=== PATIENT | female | born 1990 | race Caucasian/White ===

== ENCOUNTER 2023-05-27 08:42 | Emergency (ER) | payer OTHER, BC, SELFPAY ==
[2023-05-27 08:50] VITALS: BP 103/68; PULSE 96; RESP 16; TEMP 36.7; O2SAT 96; BMI 37.1
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
== END 2023-05-27 09:11 | disposition home or self-care (01) ==
PROVIDERS: Emergency Provider Emergency Medicine; PCP Family Medicine
DX: Z04.1 Encounter for examination and observation following transport accident (principal); R51.9 Headache, unspecified
CPT/HCPCS: 99281

== ENCOUNTER 2023-11-23 06:59 | Outpatient (OUT) | payer BC, SELFPAY ==
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
== END 2023-11-23 07:00 | disposition home or self-care (01) ==
LOC: CARD 06:59
PROVIDERS: PCP Family Medicine; Visit Provider Nurse Practitioner Family
DX: R07.9 Chest pain, unspecified (principal); R94.31 Abnormal electrocardiogram [ECG] [EKG]
CPT/HCPCS: 93017

== ENCOUNTER 2024-01-25 19:41 | Outpatient (REF) | payer BC, SELFPAY ==
--- OUTSIDE RECORDS SUMMARY | 2024-01-25 19:46 | XMS_ITS | CCD ---
Author Name Unknown Address [address] [place] [address] Organization [facility] Care Team Providers Care Edger Machine Helper Name Role Phone CASI RUGGIERO Primary Care Physician Paras Degroot Unavailable Odette Brenner Unavailable Roberto Rao Unavailable Mouna Kessler Unavailable DR RENE RIZVI Admitting Unavailable DR RENE RIZVI Attending Unavailable DR CASI RUGGIERO Primary Care Unavailable DR RENE RIZVI Consulting Unavailable Agus OLSON Attending Unavailable CASI LOPEZ Attending Unavailable CASI LOPEZ Attending Unavailable Tam Grewal Attending Unavailab Tam Schreiber Admitting Unavailab Casi Martin Primary Care Un available Casi Ruggiero MD Primary Care Provider MAT FOY Attending Unavailab le Allergies Allergy Classification Reported Allergen(s) Allergy Type Date of Onset Reaction(s) Facility (3 sources) ARIPiprazole lauroxil; Translations: [aripiprazole] Drug Allergy Adverse reactions (finding) [facility] (20 sources) PARoxetine; Translations: [paroxetine] Drug Allergy 3 Suicidal thoughts (finding) [employer] Other (20 sources) ARIPiprazole Drug Allergy 3 akathisia [employer] Other (20 sources) risperiDONE Drug Allergy akathisia [employer] Other (1 source) ARIPiprazole Drug Allergy 2 [facility] (1 source) PARoxetine Drug Allergy 2 [facility] (1 source) risperiDONE Drug Allergy 2 [facility] Medications Current Medications Medication Drug Class(es) Dates Sig (Normalized) Sig (Original) [id number] 200 actuat albuterol 0.09 mg/actuat metered dose inhaler (20 sources) beta2-Adrenergic Agonist take 1 puff(s) by inhalation every four hours as needed Albuterol Sulfate HFA 108 (90 Base) MCG/ACT 1 puff as needed Inhalation every 4 hrs 90 MCG Active take 1 puff(s) by in halation every four hours as needed Albuterol Sulfate HFA 108 (90 Base) MCG/ACT 1 puff as needed Inhalation every 4 hrs 90 MCG Active atorvastatin 10 mg oral tablet (1 source) HMG-CoA Reductase Inhibitor Start: 06-28-2023 End: 06-27-2024 take 1 tablet by mouth in the morning atorvastatin (Lipitor) 10 MG tablet Indications: Mixed hyperlipidemia (CMS/HCC) Take 1 tablet (10 mg) by mouth in the morning. 30 tablet 11 06/28/2023 06/27/2024 Active benztropine mesylate 1 mg oral tablet (2 sources) Anticholinergic, Antihistamine Start: 03-15-2023 benztropine 1 mg Tab Refills(s) 0 Start Date: 03/16/23 Status: Ordered Vraylar (10 sources) Atypical Antipsychotic Start: 05-12-2022 Vraylar Oral, Daily Start Date: 05/12/22 Status: Ordered Start: 04-07-2022 take [address] [facility] every twenty-four hours Vraylar 1.5 MG 1 capsule Orally Once a day for 90 days March, Active take 1 capsule by mo ut in the morning Vraylar 3 MG capsule Take 1 capsule by mouth in the morning. 0 Active cetirizine hydrochloride 10 mg oral tablet (1 source) Histamine-1 Receptor Antagonist take 1 tablet by mouth once daily as needed cetirizine (ZyrTEC ALLERGY) 10 MG tablet 1 tablet Orally Once a day. PRN 0 Active 1 ml erenumab-aooe 140 mg/ml auto-injector (20 sources) Start: 022 inject 1 mg by subcutaneous injection every month Aimovig SureClick Autoinjector-aooe 140 mg/mL subcutaneous solution mg, SubCutaneous, qMonth, Refills(s) 0 Start Date: 01/13/22 Status: Ordered Aimovig 70 MG/ML as directed Subcutaneous Not-Taking ethinyl estradiol 0.02 mg / ferrous fumarate 75 mg / norethindrone 1 mg oral tablet (20 sources) Estrogen take 1 tablet by sukhdev th every twenty-four hours 12/10 1-20 MG-MCG 1 tablet Orally Once a day Active take 1 tablet by mouth every twe nty-four hours fenofibrate 48 mg oral tablet (1 source) Peroxisome Proliferator Receptor alpha Agonist Start: 06-28-2023 End: 06-27-2024 take 1 tablet by mouth in the morning fenofibrate (Tricor) 48 MG tablet Indications: Mixed hyperlipidemia (CMS/HCC) Take 1 tablet (48 mg) by mouth in the morning. 30 tablet 11 06/28/2023 06/27/2024 Active Fiber (1 source) Fiber - as direc ele Orally Active fluticasone propionate 0.05 mg/actuat metered dose nasal spray (1 source) Corticosteroid take 1 spray(s) nasal route once daily as needed fluticasone (Flonase) 50 MCG/ACT nasal spray 1 spray in each nostril Nasally Once a day. PRN for 30 days 0 Active gabapentin 100 mg oral capsule (20 sources) Anti-epileptic Agent Start: 01-13-2022 take 1 mg by mouth three times daily gabapentin 100 mg Cap mg cap(s), Oral, TID, Refills(s) 0 Start Date: 01/13/22 Status: Ordered take 1 capsule by mo uth every twenty-four hours Gabapentin 100 MG 1 capsule Orally Once a day for 30 days f41.1 Active hydrOXYzine hydrochloride 50 mg oral tablet (20 sources) Antihistamine Start: 05-19-2022 hydrOXYzine HC l (Atarax) 50 MG tablet 50 mg. 0 05/19/2022 Active Start: 02-24-2022 hydrOXYzine pa moate (Vistaril) 50 MG capsule 1 capsule as needed Orally at bedtime 0 02/24/2022 Active take 1 tablet by sukhdev th every eight hours hydrOXYzine HCl 25 MG 1 tablet as needed Orally every 8 hrs for 30 days Active ketoconazole 20 mg/ml medicated shampoo (1 source) Azole Antifungal Start: 05-16-2023 ketoconazole (NIZOral) 2 % shampoo Indications: Other seborrheic dermatitis Apply topically Daily as needed for dandruff. Lather on scalp 2-3 times weekly, leave on 5-10 min before rinsing 118 mL 11 05/16/2023 Active lamoTRIgine 25 mg oral tablet (3 sources) Mood Stabilizer, Anti-epileptic Agent take 2 tablets by mouth every twenty-four hours lamoTRIgine 25 MG 2 tablet Orally Once a day for 30 days Active take 1 tablet by sukhdev th every twenty-four hours lamoTRIgine 25 MG 1 tablet Orally Once a day for 30 days Active Kwame FE 12/10 (1 source) Start: 01-13-2022 Kwame FE 12/10 Oral, Daily, Refill(s) 0 Start Date: 01/13/22 Status: Ordered levothyroxine sodium 0.025 mg oral tablet (1 source) l-Thyroxine Start: 04-14-2023 End: 04-13-2024 take 1 tablet by mouth before mealtime levothyroxine (Synthroid) 25 MCG tablet Indications: Hypothyroidism, unspecified type (CMS/HCC) Take 1 tablet (25 mcg) by mouth in the morning. Take before meals. 30 tablet 04/14/2023 04/13/2024 Active metFORMIN hydrochloride 500 mg oral tablet (20 sources) Biguanide Start: 10-10-2023 End: 01-08-2024 take 1 tablet by mouth in the morning, then take 1 tablet by mouth in the evening, then take 1 tablet by mouth at bedtime metFORMIN (Glucophage) 500 MG tablet Indications: PCOS (polycystic ovarian syndrome) Take 1 tablet (500 mg) by mouth in the morning and 1 tablet (500 mg) in the evening and 1 tablet (500 mg) before bedtime. 90 tablet 2 10/10/2023 01/08/2024 Active Start: 01-13-2022 take 1 mg by mouth once daily metformin 500 mg ER Tab mg tab(s), Oral, Daily, Refills(s) 0 Start Date: 01/13/22 Status: Ordered take 1 tablet by sukhdev every twelve hours metFORMIN HCl 500 MG 1 tablet with a meal Orally twice a day Active take 1 tablet by sukhdev th every twelve hours OLANZapine 5 mg oral tablet (6 sources) Atypical Antipsychotic Start: 12-17-2021 take 1 mg by mouth once daily olanzapine 5 mg oral tablet mg tab(s), Oral, Daily, Refills(s) 0 Start Date: 01/13/22 Status: Ordered ondansetron 4 mg oral tablet (1 source) Serotonin-3 Receptor Antagonist Start: 03-16-2023 ondansetron 4 mg Tab Refills(s) 0 Start Date: 03/16/23 Status: Ordered prazosin 1 mg oral capsule (20 sources) alpha-Adrenergic Emelia Start: 01-13-2022 take 1 capsule by mouth at bedtime prazosin (Minipress) 1 MG capsule TAKE 1 CAPSULE BY MOUTH AT BEDTIME WITH 2 MG CAPSULE 0 08/29/2022 Active Start: 01-13-2022 prazosin (Mini press) 2 MG capsule 1 capsule. 0 01/20/2022 Active Start: 03-04-2021 [facility] Prazosin HCl 1 MG 1 capsule at bedtime Orally Once a day for 90 days with 2 mg Nov, Active Start: 03-04-2021 take 1 capsule by [facility] every twenty-four hours take 1 capsule by [facility] twenty-four hours Prazosin HCl 2 MG 1 capsule at bedtime Orally Once a day for 90 days Active take 1 capsule by [facility] every twenty-four hours 24 hr propranolol hydrochloride 120 mg extended release oral capsule (20 sources) beta-Adrenergic Emelia Start: 01-03-2024 take 1 capsule by mouth every twenty-four hours at bedtime propranolol XL (Innopran XL) 120 MG 24 hr capsule Indications: Migraine without aura and without status migrainosus, not intractable (CMS/HCC) Take 1 capsule (120 mg) by mouth at bedtime 90 capsule 1 01/03/2024 Active Start: 08-16-2023 End: 01-03-2024 take 1 capsule by mouth every twenty-four hours at bedtime propranolol XL (Innopran XL) 120 MG 24 hr capsule Indications: Migraine without aura and without status migrainosus, not intractable (CMS/HCC) Take 1 capsule (120 mg) by mouth at bedtime. 30 capsule 2 08/16/2023 01/03/2024 Discontinued (Reorder) Start: 01-13-2022 take 1 mg by mouth once daily propranolol 60 mg Cap-ER mg cap(s), Oral, Daily, Refills(s) 0 Start Date: 01/13/22 Status: Ordered take [address] [facility] once daily Propranolol HCl ER 60 MG 1 capsule Orally Once a day Active Semaglutide, 2 MG/DOSE, (Ozempic, 2 MG/DOSE,) 8 MG/3ML solution pen-injector (1 source) Start: 10-03-2023 inject 2 mg by subcutaneous injection every week Semaglutide, 2 MG/DOSE, (Ozempic, 2 MG/DOSE,) 8 MG/3ML solution pen-injector Indications: Morbid (severe) obesity due to excess calories (CMS/HCC) Inject 2 mg under the skin 1 (one) time per week. 9 mL 0 10/03/2023 Active tamsulosin hydrochloride 0.4 mg oral capsule (1 source) alpha-Adrenergic Emelia Start: 03-16-2023 End: 03-30-2023 take 1 capsule by mouth once daily Flomax 0.4 mg Cap 0.4 mg = 1 cap(s), Oral, Daily, X 14 day(s), # 14 cap(s), Refills(s) 0, Pharmacy: [id number], 158, cm, 03/16/23 13:48:00 EDT, Height/Length Dosing, 91, kg, 03/16/23 13:48:00 EDT, Weight Dosing Start Date: 03/16/23 Stop Date: 03/30/23 Status: Ordered 24 hr venlafaxine 150 mg extended release oral capsule (20 sources) Serotonin and Norepinephrine Reuptake Inhibitor Start: 01-20-2022 venlafaxine XR (Effexor XR) 150 MG 24 hr capsule 1 capsule. 0 01/20/2022 Active Start: 01-13-2022 take 1 mg by mouth once daily Effexor XR 150 mg Cap-ER mg cap(s), Oral, Daily, Refills(s) 0 Start Date: 01/13/22 Status: Ordered Start: 07-25-2021 take 1 capsule [facility] once daily at mealtime venlafaxine XR (Effexor XR) 75 MG 24 hr capsule 1 capsule with food Orally Once a day. Take with 150mg 0 01/20/2022 Active Start: 07-25-2021 take 1 mg by mouth once daily Effexor XR 37.5 mg Cap-ER mg cap(s), Oral, Daily, Refills(s) 0 Start Date: 01/13/22 Status: Ordered Vitamin D 1000 UNIT (20 sources) take 1 tablet by sukhdev th once daily Vitamin D 1000 UNIT 1 tablet Orally Once a day Active take 1 tablet by mouth once martha y Vitamin D 1000 UNIT 1 tablet Orally Once a day Not-Taking Vitamin D3 (2 sources) Start: 01-13-2022 Vitamin D3 Ref ills(s) 0 Start Date: 01/13/22 Status: Ordered Completed/Discontinued Medications Medication Drug Class(es) Dates Sig (Normalized) Sig (Original) asenapine 10 mg sublingual tablet (20 sources) Atypical Antipsychotic Start: 11-12-2021 take 1 tablet under the tongue once daily Saphris 10 MG 1 tablet under the tongue and allow to dissolve. LILIYA Sublingual once a day for 30 day(s) LILIYA Nov, Not-Taking Start: 08-05-2021 take 1 tablet by sukhdev every twenty-four hours Saphris 5 MG 1 tablet under the tongue and allow to dissolve Sublingual once a day for 30 days Jul, Not-Taking cephalexin 250 mg oral tablet (12 sources) Cephalosporin Antibacterial take 2 capsules by mouth once daily Keflex 250 MG 2 capsules Orally qd Not-Taking montelukast 10 mg oral tablet (15 sources) Leukotriene Receptor Antagonist take 1 tablet by mouth every twenty-four hours Singulair 10 MG 1 tablet Orally Once a day Not-Taking Problems Active Problems Problem Classification Problem Date Documented Date Episodic/Chronic Abdominal pain (2 sources) Abdominal pain 01-13-2022 Episodic Anxiety disorders (3 sources) Anxiety; Translations: [Mixed anxiety and depressive disorder] Onset: 2023 01-11-2022 Chronic Asthma (2 sources) Asthma 01-11-2022 Chronic Calculus of urinary tract (4 sources) Kidney stone; Translations: [Calculus of kidney] Onset: 05-12-2022 Episodic Disorders of lipid metabolism (14 sources) Mixed hyperlipidemia; Translations: [Mixed hyperlipidemia] Onset: 02-24-2022 Resolved: 02-24-2022 Chronic Genitourinary symptoms and ill-defined conditions (4 sources) Stress incontinence (female) (male); Translations: [Genuine stress incontinence] Onset: 05-12-2022 Chronic Genitourinary symptoms and ill-defined conditions (4 sources) Nocturia; Translations: [Nocturia] Onset: 03-16-2023 01-13-2022 Episodic Headache; including migraine (18 sources) Migraine; Translations: [Migraine, unspecified, not intractable, without status migrainosus] Onset: 02-24-2022 Resolved: 02-24-2022 01-11-2022 Chronic Heart valve disorders (2 sources) Heart murmur 01-11-2022 Episodic Immunizations and screening for infectious disease (1 source) Encounter for screening for human papillomavirus (HPV); Translations: [ENC SCREENING HUMAN PAPILLOMAVIRUS] Onset: 11-17-2022 Episodic Menstrual disorders (1 source) Irregular periods; Translations: [Irregular menstruation, unspecified] Onset: 2023 2023 Chronic Miscellaneous mental health disorders (13 sources) Eating disorder; Translations: [Eating disorder, unspecified] Onset: 02-24-2022 Resolved: 02-24-2022 Chronic Mood disorders (20 sources) Depressive disorder; Translations: [Bipolar II disorder, most recent episode major depressive] Onset: 04-02-2021 Resolved: 06-07-2022 01-11-2022 Chronic Nutritional deficiencies (1 source) Vitamin D deficiency; Translations: [Vitamin D deficiency, unspecified] Onset: 2023 2023 Chronic Other endocrine disorders (12 sources) Polycystic ovaries; Translations: [Polycystic ovarian syndrome] Chronic Other endocrine disorders (1 source) Polycystic ovarian syndrome Onset: 02-24-2022 Resolved: 02-24-2022 Chronic Other endocrine disorders (1 source) Polycystic ovary syndrome; Translations: [Polycystic ovarian syndrome] Onset: 2023 2023 Chronic Other nutritional; endocrine; and metabolic disorders (4 sources) Body mass index 40+ - severely obese; Translations: [Body mass index (BMI) 40.0-44.9, adult] Onset: 01-13-2022 Chronic Other nutritional; endocrine; and metabolic disorders (13 sources) Metabolic syndrome X; Translations: [Metabolic syndrome] Onset: 2023 2023 Chronic Other nutritional; endocrine; and metabolic disorders (1 source) Metabolic syndrome Onset: 02-24-2022 Resolved: 02-24-2022 Chronic Other nutritional; endocrine; and metabolic disorders (1 source) Obesity caused by energy imbalance; Translations: [Morbid (severe) obesity due to excess calories] Onset: 2023 2023 Chronic Other screening for suspected conditions (not mental disorders or infectious disease) (4 sources) Encounter for screening for malignant neoplasm of cervix; Translations: [ENC SCREENING MALIG NEOPLASM CERV] Onset: 11-10-2022 Episodic Substance-related disorders (1 source) Abuse of laxatives; 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] Onset: 2023 2023 Chronic Unclassified (2 sources) Asymptomatic microscopic hematuria 01-13-2022 Urinary tract infections (4 sources) Urinary tract infectious disease; Translations: [Urinary tract infection, site not specified] Onset: 05-12-2022 Episodic Past or Other Problems Problem Classification Problem Date Documented Da te Episodic/Chronic Cardiac dysrhythmias (1 source) Palpitations Onset: 02-24-2022 Resolved: 02-24-2022 Episodic Diabetes mellitus without complication (14 sources) Prediabetes; Translations: [Other abnormal glucose] Onset: 02-24-2022 Resolved: 02-24-2022 Episodic Mood disorders (1 source) Mood disorders Onset: 06-28-2023 06-28-2023 Other gastrointestinal disorders (1 source) Constipation; Translations: [Constipation, unspecified] Onset: 10-22-2021 06-28-2023 Episodic Other nutritional; endocrine; and metabolic disorders (1 source) Abnormal weight gain Onset: 02-24-2022 Resolved: 02-24-2022 Episodic Residual codes; unclassified (1 source) Insomnia; Translations: [Insomnia, unspecified] Onset: 2023 2023 Episodic Results Test Name Value Interpretation Reference Range Facility Lab Reportson 07-15-2023 Lab Reports [id number] #[id number]:127 Normal [facility] RAD - CT Reporton 07-15-2023 RAD - CT Report [id number] #[id number]:127 Normal [facility] Patient Educationon 03-16-20 Patient Education Urology Kidney Stones Kidney stones are rock-like masses that form inside of the kidneys. Kidneys are organs that make pee (urine). A kidney stone may move into other parts of the urinary tract, including: ? The tubes that connect the kidneys to the bladder (ureters). ? The bladder. ? The tube that carries urine out of the body (urethra). Kidney stones can cause very bad pain and can block the flow of pee. The stone usually leaves your body (passes) through your pee. You may need to have a doctor take out the stone. What are the causes? Kidney stones may be caused by: ? A condition in which certain glands make too much parathyroid hormone (primary hyperparathyroidism) . ? A buildup of a type of crystals in the bladder made of a chemical called uric acid. The body makes uric acid when you eat certain foods. ? Narrowing (stricture) of one or both of the ureters. ? A kidney blockage that you were born with. ? Past surgery on the kidney or the ureters, such as gastric bypass surgery. What increases the risk? You are more likely to develop this condition if: ? You have had a kidney stone in the past. ? You have a family history of kidney stones. ? You do not drink enough water. ? You eat a diet that is high in protein, salt (sodium), or sugar. ? You are overweight or very overweight (obese). What are the signs or symptoms? Symptoms of a kidney stone may include: ? Pain in the side of the belly, right below the ribs (flank pain). Pain usually spreads (radiates) to the groin. ? Needing to pee often or right away (urgently). ? Pain when going pee (urinating). ? Blood in your pee (hematuria). ? Feeling like you may vomit (nauseous). ? Vomiting. ? Fever and chills. How is this treated? Treatment depends on the size, location, and makeup of the kidney stones. The stones will often pass out of the body through peeing. You may need to: ? Drink more fluid to help pass the stone. In some cases, you may be given fluids through an IV tube put into one of your veins at the hospital. ? Take medicine for pain. ? Make changes in your diet to help keep kidney stones from coming back. Sometimes, medical procedures are needed to remove a kidney stone. This may involve: ? A procedure to break up kidney stones using a beam of light (laser) or shock waves. ? Surgery to remove the kidney stones. Follow these instructions at home: Medicines ? Take [id number] and prescription medicines only as told by your doctor. ? Ask your doctor if the medicine prescribed to you requires you to avoid driving or using heavy machinery. Eating and drinking ? Drink enough fluid to keep your pee pale yellow. You may be told to drink at least 8?10 glasses of water each day. This will help you pass the stone. ? If told by your doctor, change your diet. This may include: ? Limiting how much salt you eat. ? Eating more fruits and vegetables. ? Limiting how much meat, poultry, fish, and eggs you eat. ? Follow instructions from your doctor about eating or drinking restrictions. General instructions ? Collect pee samples as told by your doctor. You may need to collect a pee sample: ? 24 hours after a stone comes out. ? 8?12 weeks after a stone comes out, and every 6?12 months after that. ? Strain your pee every time you pee (urinate), for as long as told. Use the strainer that your doctor recommends. ? Do not throw out the stone. Keep it so that it can be tested by your doctor. ? Keep all follow-up visits as told by your doctor. This is important. You may need follow-up tests. How is this prevented? To prevent another kidney stone: ? Drink enough fluid to keep your pee pale yellow. This is the best way to prevent kidney stones. ? Eat healthy foods. ? Avoid certain foods as told by your doctor. You may be told to eat less protein. ? Stay at a healthy weight. Where to find more information ? National Kidney Foundation (NKF): www.kidney.org ? [employer] (UCF): www.urologyhealth.or g Contact a doctor if: ? You have pain that gets worse or does not get better with medicine. Get help right away if: ? You have a fever or chills. ? You get very bad pain. ? You get new pain in your belly (abdomen). ? You pass out (faint). ? You cannot pee. Summary ? Kidney stones are rock-like masses that form inside of the kidneys. ? Kidney stones can cause very bad pain and can block the flow of pee. ? The stones will often pass out of the body through peeing. ? Drink enough fluid to keep your pee pale yellow. This information is not intended to replace advice given to you by your health care provider. Make sure you discuss any questions you have with your health care provider. Document Revised: 07/12/2022 Document Reviewed: 07/12/2022 [employer] Patient Education ? 2022 [employer]. [place] [facility] Urology Office/Clinic Noteon 03-16-2023 Urology Office/Clinic Note Chief Complaint 1yr KUB HPI Staff PRW pt here for 1yr KUB (office RS'd) due to Kidney Stone. S/P Cysto 02/12/22. Then was seen in office by Dr Olson 05/12/22 for 3m to Cysto. Additional DX: Microscopic Hematuria, Stress Incontinence, Abdominal pain, Nocturia & Recurrent UTI. KUB done 12/22/22 UA today shows SMALL blood. Pt is on her menses. Did have UTI back in October. Tx'd by PCP. Denies visible blood in urine. Denies pain/burning. Denies flank pain. Still has occasional loss of bladder control, when she tries to hold it too long. Getting up once a night to void. Denies all other urinary complaints. History of Present Illness staff HPI reviewed and agree. Review of Systems PHQ Score Initial Depression Screen Score: 0 no fever, chills, malaise, myalgia. no rash/lesions. no chest pain, palpitations, or SOB. no abdominal pain, nausea, vomiting. no unilateral calf swelling, redness, pain Physical Exam Vitals & Measurements HR: 70(Peripheral) RR: 16 BP: 120/68 HT: 62 in HT: 158 cm WT: 91 kg WT: 200.2 lb BMI: 36.45 General: nontoxic, NAD Mouth: moist mucosa Lungs: normal respiratory effort Cardio: regular rate, good distal perfusion Abdomen: nondistended, no suprapubic distention or tenderness, no CVA tenderness Neurologic: Grossly normal Skin: No rashes or suspicious lesions Assessment/Plan 1. Kidney stones (N20.0: Calculus of kidney) KUB done 12/22/2022 showed 2 punctate calcifications in the lower right hemipelvis, 1 of which is known to be a phlebolith. the other could be a UVJ or bladder stone. Educated pt that if it is in her UVJ or Bladder she should be able to pass it on her own based on size and location. pt has been completely asymptomatic so it may also just be another phlebolith. however in case it's a stone, Will start daily Flomax 0.4mg for 2 weeks and increase fluids & take NSAIDs for MET. If pt passes a stone she will inform our office. ER for intolerable pain, intractable vomiting, fever/chills. Pt understands and agrees. F/U in 1 year w/KUB. stone prevention diet discussed. 2. Asymptomatic microscopic hematuria (R31.21: Asymptomatic microscopic hematuria) UA today shows small, however pt is on her menses Cysto done 02/12/22neg 3. Stress incontinence (N39.3: Stress incontinence (female) (male)) Mild, ongoing. no worse than last year. typically only notices it if she waits too long and has a full bladder and then coughs or sneezes or similar. not bothersome enough to warrant tx. 4. Nocturia (R35.1: Nocturia) 1x unchanged since last year. not bothersome enough to warrant tx per pt. 5. Recurrent UTI (N39.0: Urinary tract infection, site not specified) timed voids UA negative for infection. Last UTI in October 2022 treated by PCP Follow-up With When Contact Information CASI LOPEZ PA-C, URL In 1 year 03/16/2024 EDT [address] [place] [address] [phone] Additional Instructions: KUB Patient Education Kidney Stones, Vbkv-sa-Ccah Kristi Jovel personally scribed for Casi Lopez PA-C on 03/16/2023 14:06:20. . Documentation recorded by the scribe Kristi Eugene accurately reflects the services(s) I performed and decisions made by me. Authenticated by Casi Lopez PA-C on 03/16/2023 14:11:33. Problem List/Past Medical History Ongoing Anxiety Asthma Asymptomatic microscopic hematuria BMI 40.0-44.9, adult Depression Heart murmur Kidney stones Migraine Nocturia Pain in the abdomen Recurrent UTI Stress incontinence Historical No qualifying data Procedure/Surgical History Cystoscopy (02/12/2022), Tonsillectomy. Medications benztropine 1 mg Tab Effexor XR 150 mg Cap-ER, Oral, Daily Effexor XR 37.5 mg Cap-ER, Oral, Daily gabapentin 100 mg Cap, Oral, TID metformin 500 mg ER Tab, Oral, Daily ondansetron 4 mg Tab prazosin 1 mg Cap, Oral, TID prazosin 2 mg oral capsule, Oral, TID propranolol 60 mg Cap-ER, Oral, Daily Vitamin D3 Vraylar, Oral, Daily Allergies Abilify (Adverse reaction) Paxil (Suicidal thoughts) Social History Tobacco Never (less than 100 in lifetime) Tobacco Use:. Never Smokeless Tobacco Use:., 03/16/2023 Family History Arthritis: Mother and Father. Diabetes: Grandparent. Heart disease: Grandparent. Hyperlipidemia: Mother. Hypertension: Mother. Immunizations Vaccine Date Status Comments influenza virus vaccine, inactivated 09/08/2022 Recorded SARS-CoV-2 (COVID-19) mRNA-1273 vaccine 10/14/2021 Recorded influenza virus vaccine, inactivated 09/25/2021 Recorded SARS-CoV-2 (COVID-19) mRNA-1273 vaccine 09/2021 Recorded influenza virus vaccine, inactivated 09/2021 Recorded SARS-CoV-2 (COVID-19) mRNA-1273 vaccine 12/2020 Recorded SARS-CoV-2 (COVID-19) mRNA-1273 vaccine 12/22/2020 Recorded SARS-CoV-2 (COVID-19) mRNA-1273 vaccine 11/24/2020 Recorded SARS-CoV-2 (COVID-19) mRNA-1273 vaccine 2020 Recorded p (more content not included)... Normal [facility] Comment on above: Result Comment: Elec tronically Signed By: JOHN PACASI Brown\.br\Date and Time Signed: 03/16/23 14:11 EDT\.br\Electronically Co-Signed By: Kristi Eugene MA\.br\Date and Time Co-Signed: 03/16/23 14:06 EDT RAD - MISCon 12-24-2022 RAD - MISC [id number] #[id number]:127 Normal [facility] Lab Reportson 11-10-2022 Lab Reports [id number] #1.00CD:127 Normal [facility] Comprehensive Metabolic Pane jolynn 04-08-2022 Albumin [Mass/Vol] 4.6 g/dL Normal 3.6-5.1 [facility] Comment on above: Performed By: #### T SH reflex FT4, LIPD, CMP #### [facility] [address], [place] [id number] Albumin/Globulin [Mass ratio] 1.6 {ratio} Normal 1.0-2.5 [facility] Specialist Comment on above: Performed By: #### T SH reflex FT4, LIPD, CMP #### [facility] [address], [place] [id number] ALP [Catalytic activity/Vol] 101 U/L Normal 35-119 [facility] Specialist Comment on above: Performed By: #### T SH reflex FT4, LIPD, CMP #### [facility] [address], [place] [id number] ALT [Catalytic activity/Vol] 23 U/L Normal 6-33 [facility] Specialist Comment on above: Result Comment: 10/21 Female reference range changed. Performed By: #### T SH reflex FT4, LIPD, CMP #### [facility] [address], [place] [id number] Anion gap [Moles/Vol] 21 mmol/L High 12-20 [facility] Specialist Comment on above: Result Comment: Effe ctive 11/26/2019 reference range changed. Performed By: #### T SH reflex FT4, LIPD, CMP #### [facility] [address], [place] [id number] AST [Catalytic activity/Vol] 32 U/L Normal 9-34 [facility] Specialist Comment on above: Performed By: #### T SH reflex FT4, LIPD, CMP #### [facility] [address] [place] [address], [place] [id number] Bilirubin [Mass/Vol] 0.51 mg/dL Normal 0.30-1.20 [facility] Specialist Comment on above: Performed By: #### T SH reflex FT4, LIPD, CMP #### [facility] [address], [place] [id number] BUN/CREA 23 Ratio High 6-22 [facility] Specialist Comment on above: Performed By: #### T SH reflex FT4, LIPD, CMP #### [facility] [address], [place] [id number] Calcium [Mass/Vol] 9.5 mg/dL Normal 8.6-10.2 [facility] Comment on above: Performed By: #### T SH reflex FT4, LIPD, CMP #### [facility] [address], [place] [id number] Chloride [Moles/Vol] 102 mmol/L Normal 98-107 [facility] Specialist Comment on above: Performed By: #### T SH reflex FT4, LIPD, CMP #### [facility] [address], [place] [id number] CO2 [Moles/Vol] 21 mmol/L Normal 20-31 [facility] Specialist Comment on above: Performed By: #### T SH reflex FT4, LIPD, CMP #### [facility] [address], [place] [id number] Creatinine [Mass/Vol] 0.6 mg/dL Normal 0.6-1.4 [facility] Specialist Comment on above: Performed By: #### T SH reflex FT4, LIPD, CMP #### [facility] [address], [place] [id number] eGFRAA 144 mL/min/1.73m2 Normal >60 [facility] Specialist Comment on above: Performed By: #### T SH reflex FT4, LIPD, CMP #### [facility] [address], [place] [id number] eGFRNAA 119 mL/min/1.73m2 Normal >60 [facility] [place] [employer] Comment on above: Performed By: #### T SH reflex FT4, LIPD, CMP #### [facility] [address], [place] [id number] Globulin (S) [Mass/Vol] 2.9 g/dL Normal 1.9-3.7 [facility] [employer] Comment on above: Performed By: #### T SH reflex FT4, LIPD, CMP #### [facility] [address], [place] [id number] Glucose [Mass/Vol] 79 mg/dL Normal 65-99 Jourdan courtney [place] [employer] Comment on above: Result Comment: For FASTING Glucose --- ADA reference ranges: Normal 65-99 mg/dl Prediabetes 100-125 Diabetes >/= 126 Performed By: #### T SH reflex FT4, LIPD, CMP #### [facility] [address], [place] [id number] Potassium [Moles/Vol] 4.3 mmol/L Normal 3.5-5.5 [facility] [employer] Comment on above: Performed By: #### T SH reflex FT4, LIPD, CMP #### [facility] [address], [place] [id number] Protein [Mass/Vol] 7.5 g/dL Normal 6.1-8.1 Jourdan rn [place] [employer] Comment on above: Performed By: #### T SH reflex FT4, LIPD, CMP #### [facility] [address], [place] [id number] Sodium [Moles/Vol] 139 mmol/L Normal 135-146 Jourdan rn [place] [employer] Comment on above: Performed By: #### T SH reflex FT4, LIPD, CMP #### [facility] [address] [place] [address], [place] [id number] Urea nitrogen [Mass/Vol] 14 mg/dL Normal 7-25 [facility] [employer] Comment on above: Performed By: #### T SH reflex FT4, LIPD, CMP #### [facility] [address], [place] [id number] Lipid Panelon 04-08-2022 Cholesterol [Mass/Vol] 259 mg/dL High 125-200 [facility] Specialist Comment on above: Result Comment: Low risk < 200mg/dL Borderline risk 201-239 mg/dl High risk > or equal to 240 Performed By: #### T SH reflex FT4, LIPD, CMP #### [facility] [address], [place] [id number] Cholesterol in HDL [Mass/Vol] 37 mg/dL Low >40 [facility] [employer] Comment on above: Result Comment: High Cardiovascular Risk HDL <40 mg/dL Low Cardiovascular Risk HDL > or equal to 60 mg/dl Performed By: #### T SH reflex FT4, LIPD, CMP #### [facility] [address] [place], [place] [id number] Cholesterol in LDL [Mass/Vol] 164 mg/dL Normal [facility] Specialist Comment on above: Result Comment: LDL ATP III CLASSIFICATION LDL less than 100 mg/dl Optimal LDL 100-129 mg/dl Near or above optimal LDL 130-159 Borderline high LDL 160-189 High LDL greater than 189 mg/dl Very High Performed By: #### T SH reflex FT4, LIPD, CMP #### [facility] [address], [place] [id number] Cholesterol in VLDL [Mass/Vol] 58 mg/dL Normal [facility] Specialist Comment on above: Performed By: #### T SH reflex FT4, LIPD, CMP #### [facility] [address] [place] [address], [place] [id number] Cholesterol.total/C holesterol in HDL [Mass ratio] 7 {ratio} Normal [facility] Specialist Comment on above: Performed By: #### T SH reflex FT4, LIPD, CMP #### [facility] [address] [place] [address], [place] [id number] Triglyceride [Mass/Vol] 292 mg/dL High 30-150 [facility] [employer] Comment on above: Result Comment: TRIG ATPIII CLASSIFICATIONS TRIG less than 150 mg/dl Normal TRIG 150-199 mg/dl Borderline High TRIG 200-500 mg/dl High TRIG greather than 500 mg/dl Very High Performed By: #### T SH reflex FT4, LIPD, CMP #### [facility] [address], [place] [id number] TSH w/ Reflex to Free T4on 0 04-08-2022 TSH 3.120 uIU/mL Normal 0.400-4.500 [facility] [employer] Comment on above: Performed By: #### T SH reflex FT4, LIPD, CMP #### [facility] [address] [place], [place] [id number] A1C HEMOGLOBINon 02-24-2022 HbA1c (Bld) [Mass fraction] 5.7 % [employer] Other HbA1c (Bld) [Mass fraction]o n 02-24-2022 A1C HEMOGLOBIN [facility] Other XR Sacrum/Coccyxon XR Sacrum/Coccyx FINDINGS: Comparison made with prior examinations most recent CT October 28, 2021. Subtle cortical indistinctness mid coccygeal segments, possible post-traumatic sequela, non-aggressive. No presacral hematoma. Intact pelvic ring. Normal lumbosacral alignment. Sclerotic areas left sacrum consistent with the recent CT appearance, non-aggressive presumed bone island. IMPRESSION: 1. Mid coccygeal findings possible healing fracture if clinically suspect. 2. Benign non-aggressive appearing bone islands. Report reported and signed by Abraham Pena on 01/06/2022 1018 Normal [facility] [employer] Q - CULTURE,URINE,ROUTINEon 12-17-2021 CULTURE, URINE, ROUTINE SEE NOTE Normal [facility] [employer] Comment on above: Order Comment: [facility] performed at: [employer], [facility], [address] [place] [address], [address] [place] [address], [id number], Industrial Spraypainter: Sotero Patel MD [facility] Collection Date/Time: [id number] [facility] Results Received Date/Time: [facility] Reported Date/Time: [id number] Result Comment: CULT URE, URINE, ROUTINE Micro Number: [id number] Test Status: Final Specimen Source: Urine Specimen Quality: Adequate Result: No Growth Performed By: #### 8 6702A, [id number] #### [facility] [address] [place] [address] Q - URINALYSIS WITH REFLEX T O MICROSCOPICon 12-17-2021 Appearance (U) CLEAR Normal CLEAR [facility] [employer] Comment on above: Order Comment: [facility] performed at: [place] [employer] [facility], [address] , [address] [place] [address], [address] [place] [address], Industrial Spraypainter: Sotero Patel MD [facility] Collection Date/Time: [facility] Results Received Date/Time: [facility] Reported Date/Time: Performed By: #### 8 6702A, [id number] #### [facility] [address] [place] [address] Bilirubin Ql (U) Negative Normal NEGATIVE [facility] [employer] Comment on above: Order Comment: [facility] performed at: [employer], [employer] [facility], [address] , [address] [place] [address], [address] [place] [address], Industrial Spraypainter: Sotero Patel MD [facility] Date/Time: [facility] Results Received Date/Time: [facility] Reported Date/Time: Performed By: #### 8 6702A, 6304R #### [facility] [address] [place] [address] Color (U) YELLOW Normal YELLOW [facility] [employer] Comment on above: Order Comment: [facility] performed at: [employer], [employer] [facility], [address] , [address] [place] [address], [address] [place] [address], Industrial Spraypainter: Sotero Patel MD [facility] Date/Time: [facility] Results Received Date/Time: [facility] Reported Date/Time: Performed By: #### 8 6702A, [id number] #### [facility] [address] [place] [address] Glucose Ql (U) Negative Normal NEGATIVE [facility] [employer] Comment on above: Order Comment: [facility] performed at: [facility], [employer] [facility], [address] , [address] [place] [address], [address] [place] [address], Industrial Spraypainter: Sotero Patel MD [facility] Collection Date/Time: [facility] Results Received Date/Time: [facility] Reported Date/Time: Performed By: #### 8 6702A, 6304R #### [facility] [address] [place] [address] Ketones Ql (U) Negative Normal NEGATIVE [facility] [employer] Comment on above: Order Comment: [facility] performed at: [employer] [facility], [address] , [address] [place] [address], [address] [place] [address], Industrial Spraypainter: Sotero Patel MD [facility] Date/Time: [facility] Results Received Date/Time: [facility] Reported Date/Time: Performed By: #### 8 6702A, 6304R #### [facility] [address] [place] [address] Leukocyte esterase Test strip Ql (U) Negative Normal NEGATIVE [facility] Specialist Comment on above: Order Comment: [facility] performed at: [employer], [employer] [facility], [address] , [address] [place] [address], [address] [place] [address], Industrial Spraypainter: Sotero Patel MD [facility] Date/Time: [facility] Results Received Date/Time: [facility] Reported Date/Time: Performed By: #### 8 6702A, 6304R #### [facility] [address] [place] [address] Nitrite Ql (U) Negative Normal NEGATIVE [facility] [employer] Comment on above: Order Comment: [facility] performed at: [employer], [employer] [facility], [address] , [address] [place] [address], [address] [place] [address], Industrial Spraypainter: Sotero Patel MD [facility] Date/Time: [facility] Results Received Date/Time: [facility] Reported Date/Time: Performed By: #### 8 6702A, 6304R #### [facility] [address] [place] [address] OCCULT BLOOD Negative Normal NEGATIVE [facility] [employer] Comment on above: Order Comment: [facility] performed at: [employer] [facility], [address], [address] [place] [address], [address] [place] [address], Industrial Spraypainter: Sotero Patel MD [facility] Collection Date/Time: [facility] Results Received Date/Time: [facility] Reported Date/Time: Performed By: #### 8 6702A, 6304R #### [facility] [address] [place] [address] pH (U) 6.0 [pH] Normal 5.0-8.0 [facility] [employer] Comment on above: Order Comment: [facility] performed at: [employer] [facility], [address] [facility], [address] [place] [address], [address] [place] [address], Industrial Spraypainter: Stoero Patel MD [facility] Collection Date/Time: [facility] Results Received Date/Time: [facility] Reported Date/Time: Performed By: #### 8 6702A, 6304R #### [facility] [address] [place] [address] Protein Ql (U) Negative Normal NEGATIVE [facility] [employer] Comment on above: Order Comment: [facility] performed at: [employer] [facility], [address] [facility], [address] [place] [address], [address] [place] [address], Industrial Spraypainter: Sotero Patel MD [facility] Date/Time: [facility] Results Received Date/Time: [facility] Reported Date/Time: Performed By: #### 8 6702A, 6304R #### [facility] [address] [place] [address] Specific gravity (U) [Rel density] 1.023 Normal 1.001-1.035 [facility] [employer] Comment on above: Order Comment: [facility] performed at: [employer] [facility], [address] [facility], [address] [place] [address], [address] [place] [address], Industrial Spraypainter: Sotero Patel MD [facility] Date/Time: [id number] [facility] Results Received Date/Time: [id number] [facility] Reported Date/Time: [id number] Performed By: #### 8 6702A, 6304R #### [facility] [address] [place] [address] Vital Signs Date Time Vital Sign Value Performing Clinician Facility 03-16-2023 13:46-0400 Blood Pressure Location CASILINDA LAMBERTRY [facility] 03-16-2023 13:46-0400 Diastolic blood pressure 68 mm[Hg] CASI JOHN [facility] 03-16-2023 13:46-0400 Heart rate 70 /min CASI JOHN [facility] 03-16-2023 13:46-0400 Respiratory rate 16 /min CASI JOHN [facility] 03-16-2023 13:46-0400 Systolic blood pressure 120 mm[Hg] CASI JOHN [facility] 05-12-2022 15:20-0400 Blood Pressure Location Agus OLSON [facility] 05-12-2022 15:20-0400 Diastolic blood pressure 88 mm[Hg] Agus OLSON [facility] 05-12-2022 15:20-0400 Heart rate 85 /min Agus OLSON [facility] 05-12-2022 15:20-0400 Systolic blood pressure 122 mm[Hg] Agus OLSON [facility] 02-24-2022 15:00-0400 Body height 157.48 cm Roberto Rao Other [employer] Other 02-24-2022 15:00-0400 Body mass index (BMI) [Ratio] 42.14 kg/m2 Roberto Contediff Other [employer] Other 02-24-2022 15:00-0400 Body weight 104.51 kg Roberto Contediff Other [employer] Other 02-24-2022 15:00-0400 Diastolic blood pressure 86 mm[Hg] Roberto Contediff Other [employer] Other 02-24-2022 15:00-0400 Respiratory rate 18 /min Roberto Titusff Other [employer] Other 02-24-2022 15:00-0400 SaO2% (BldA) [Mass fraction] 98 % Roberto Contediff Other [employer] Other 02-24-2022 15:00-0400 Systolic blood pressure 115 mm[Hg] Roberto Contediff Other [employer] Other Encounters Encounter Date Encounter Type Care Provider Facility Start: 03-21-2024 ambulatory CASI Mendez ty:[facility]INDY Pandya Start: 01-12-2024 End: 01-12-2024 ambulatory MAT FOY Not Available Start: 01-03-2024 Orders Only Mat snow ONLINE PRODUCER Work Phone: [facility] Comment on above: Migraine without aur a and without status migrainosus, not intractable (CMS/HCC) Start: 10-05-2023 ambulatory Tam Aguilera acility:[facility] Start: 03-16-2023 End: 03-17-2023 ambulatory CASI LOPEZ Facility:[facility] Pandya Start: 03-16-2023 End: 03-16-2023 Patient encounter procedure CASI LOPEZ [facility] Start: 02-23-2023 ambulatory Agus OLSON Facili ty:[facility]IND[facility] Galvan Start: 11-10-2022 End: 11-10-[address] RENE RIZVI Facility: Start: 06-07-2022 End: 06-07-2022 ambulatory Paras Zane Other [employer] Other Start: 06-07-2022 Telephone encounter Paras Zane [facility] Start: 05-19-2022 End: 05-19-2022 ambulatory Paras Zane Other [employer] Other Start: 05-19-2022 Telephone encounter Paras Zane [facility] Start: 05-12-2022 End: 05-12-2022 Patient encounter procedure Agus OLSON [facility] Start: 05-03-2022 End: 05-03-2022 ambulatory Parsa Zane Other [employer] Other Start: 05-03-2022 Telephone encounter Paras Zane [facility] Start: 04-28-2022 End: 04-28-2022 ambulatory Paras Zane Other [employer] Other Start: 04-28-2022 Telephone encounter Paras Zane [facility] Start: 04-12-2022 End: 04-12-2022 ambulatory Mouna Kessler Other [employer] Other Start: 04-12-2022 Telephone encounter Mouna Kessler [facility] Start: 04-08-2022 End: 04-08-2022 ambulatory Paras Zane Other [employer] Other Start: 04-08-2022 Telephone encounter Paras Zane [facility] Start: 04-07-2022 End: 04-07-2022 ambulatory Paras Zane Other [employer] Other Start: 04-07-2022 Telephone encounter Paras Zane [facility] Start: 03-29-2022 End: 03-29-2022 ambulatory Paras Zane Other [employer] Other Start: 03-29-2022 Telephone encounter Paras Zane [facility] Start: 03-26-2022 End: 03-26-2022 ambulatory Paras Zane Other [employer] Other Start: 03-26-2022 Telephone encounter Paras Zane [facility] Start: 03-08-2022 End: 03-08-2022 ambulatory Paras Zane Other [employer] Other Start: 03-08-2022 Telephone encounter Paras Zane [facility] Start: 02-24-2022 End: 02-24-2022 ambulatory Roberto Rao Other [employer] Other Start: 02-24-2022 Nutrition therapy Roberto Rao [facility] Start: 02-24-2022 Telephone encounter Paras Zane [facility] Start: 02-22-2022 End: 02-22-2022 ambulatory Paras Zane Other [employer] Other Start: 02-22-2022 Telephone encounter Paras Zane [facility] Start: 01-15-2022 End: 01-15-2022 ambulatory Paras Zane Other [employer] Other Start: 01-15-2022 Telephone encounter Paras Zane [facility] Start: 12-21-2021 End: 12-21-2021 ambulatory Paras Zane Other [employer] Other Start: 12-21-2021 Telephone encounter Apras Zane [facility] Start: 12-17-2021 End: 12-17-2021 ambulatory Paras Zane Other [employer] Other Start: 12-17-2021 Telephone encounter Paras Zane [facility] Start: 12-15-2021 End: 12-15-2021 ambulatory Paras Zane Other [employer] Other Start: 12-15-2021 Telephone encounter Paras Zane [facility] Start: 12-09-2021 End: 12-09-2021 ambulatory Paras Zane Other [employer] Other Start: 12-09-2021 Telephone encounter Paras Zane [facility] Start: 12-07-2021 End: 12-07-2021 ambulatory Paras Zane Other [employer] Other Start: 12-07-2021 Telephone encounter Paras Zane [facility] Start: 11-23-2021 End: 11-23-2021 ambulatory Paras Zane Other [employer] Other Start: 11-23-2021 Telephone encounter Paras Zane [facility] Start: 11-17-2021 End: 11-17-2021 ambulatory Odette Brenner Other [employer] Other Start: 11-17-2021 Telephone encounter Odette Brenner [facility] Start: 11-12-2021 End: 11-12-2021 ambulatory Paras Zane Other [employer] Other Start: 11-12-2021 Telephone encounter Paras Zane [facility] Start: 11-06-2021 End: 11-06-2021 ambulatory Paras Zane Other [employer] Other Start: 11-06-2021 Telephone encounter Paras Zane [facility] Start: 10-07-2021 End: 10-07-2021 ambulatory Paras Zane Other [employer] Other Start: 10-07-2021 Telephone encounter Paras Zane [facility] Start: 10-05-2021 End: 10-05-2021 ambulatory Paras Zane Other [employer] Other Start: 10-05-2021 Telephone encounter Paras Zane [facility] Procedures Date Procedure Procedure Detail Performing Clinician Start: 02-12-2022 Cystoscopy Agus CÁRDENAS Tonsillectomy Agus OLSON Plan of Treatment Date Care Activity Detail Author Start: 05-28-2024 End: 05-28-2024 Patient encounter procedure 05/28/2024 8:30 AM EDT Office Visit [facility] [address] [place] [id number] Ernestina Shah APRN-CRM ARCHITECT [address] [place] [address] [facility] Start: 01-25-2024 End: 01-25-2024 Patient encounter procedure 01/25/2024 1:00 PM EST Office Visit [facility] [address] [place] [address] Rene Rizvi, DO [address] [place] [address] [facility] Start: 01-12-2024 End: 01-12-2024 Patient encounter procedure 01/12/2024 8:00 AM EST Office Visit [facility] [address] [facility] [place] [id number] Mat Foy, ONLINE PRODUCER [address] [place] [facility] [place] [address] [facility] Start: 2021 Screening for malign ant neoplasm of cervix [facility] Start: 2012 Screening for malign ant neoplasm of cervix Pap Smear [facility] Immunizations Immunization Date Immunization Notes Care Provider [facility] 09-30-2023 influenza, injectabl e, quadrivalent, preservative free Mat Hackenburg ONLINE PRODUCER Work Phone: [facility] Work Phone: 09-08-2022 influenza virus vaccine, unspecified formulation CASI JOHN [facility] 09-08-2022 influenza, injectabl e, quadrivalent, preservative free Mat Hackenburg ONLINE PRODUCER Work Phone: [facility] 10-14-2021 SARS-CoV-2 (COVID-19 ) mRNA-[id number] vaccine CASI JOHN [facility] 09-25-2021 influenza virus vaccine, unspecified formulation CASI JOHN [facility] 09-25-2021 influenza, injectabl e, quadrivalent, preservative free Mat Hackenburg ONLINE PRODUCER Work Phone: [facility] 09-21-2021 influenza virus vaccine, unspecified formulation Agus OLSON [facility] 09-21-2021 SARS-CoV-2 (COVID-19 ) mRNA-[id number] vaccine Agus OLSON [facility] 12-22-2020 SARS-CoV-2 (COVID-19 ) mRNA-1273 vaccine Agus OLSON [facility] 11-24-2020 SARS-CoV-2 (COVID-19 ) mRNA-[id number] vaccine CASI LOPEZ [facility] 11-21-2020 SARS-CoV-2 (COVID-19 ) mRNA-1273 vaccine Agus OLSON [facility] [place] Comment on above: Result Comment: pt h as had 3 shots to date 08-26-2020 influenza virus vaccine, unspecified formulation CASI JOHN [facility] 08-26-2020 influenza, injectabl e, quadrivalent, preservative free Mat Hackenburg ONLINE PRODUCER Work Phone: [facility] 09-11-2019 influenza virus vaccine, unspecified formulation CASI JOHN [facility] 09-11-2019 influenza, injectabl e, quadrivalent, preservative free Mat Hackenburg ONLINE PRODUCER Work Phone: [facility] Healthcare Payers Date Payer Category Payer Self-pay [id number] 2022 Unknown [id number] [address] [employer] [id number] 2022-Present [address] [place] [address] [id number] 2022 Unknown [id number] 1991 Unknown [id number] 1991 Unknown [id number] 1991 Unknown [id number] 1991 Unknown [id number] 1991 Unknown [id number] 1959 Unknown [id number] Unknown MMO . [id number] Unknown [id number] Social History Date Type Detail Facility Start: 05-12-2022 End: 04-12-2023 Tobacco smoking status Never smoked tobacco (finding) [facility] Other Tobacco smoking status Never [facility] Start: 06-28-2023 Sex Assigned At Female N [facility] Other Start: 1990 Sex Assigned At Female F [facility] Start: 04-12-2023 Tobacco use and exposure Smokeless tobacco non-user [facility] Start: 06-28-2023 Alcohol intake Current drinke r of alcohol (finding) [facility] Start: 06-28-2023 History of Social function [facility] Start: 04-12-2023 Alcohol Comment caffeine: 1-2 cups per day soda [facility] Start: 1990 Sex Assigned At Not on file N [facility] Functional Status Date Assessment Result Facility 03-16-2023 Functional Status N/A [facility] 05-12-2022 Functional Status N/A [facility] Clinical Notes 10-07-2021 to 03-16-2023 Note Date & Type Note Facility 03-16-2023 Hospital Discharg e instructions Patient Education 03/16/2023 13:54:43 Kidney Stones, Tinc-sq-Ryet Kidney Stones Kidney stones are rock-like masses that form inside of the kidneys. Kidneys are organs that make pee (urine). A kidney stone may move into other parts of the urinary tract, including: The tubes that connect the kidneys to the bladder (ureters). The bladder. The tube that carries urine out of the body (urethra). Kidney stones can cause very bad pain and can block the flow of pee. The stone usually leaves your body (passes) through your pee. You may need to have a doctor take out the stone. What are the causes? Kidney stones may be caused by: A condition in which certain glands make too much parathyroid hormone (primary hyperparathyroidism). A buildup of a type of crystals in the bladder made of a chemical called uric acid. The body makes uric acid when you eat certain foods. Narrowing (stricture) of one or both of the ureters. A kidney blockage that you were born with. Past surgery on the kidney or the ureters, such as gastric bypass surgery. What increases the risk? You are more likely to develop this condition if: You have had a kidney stone in the past. You have a family history of kidney stones. You do not drink enough water. You eat a diet that is high in protein, salt (sodium), or sugar. You are overweight or very overweight (obese). What are the signs or symptoms? Symptoms of a kidney stone may include: Pain in the side of the belly, right below the ribs (flank pain). Pain usually spreads (radiates) to the groin. Needing to pee often or right away (urgently). Pain when going pee (urinating). Blood in your pee (hematuria). Feeling like you may vomit (nauseous). Vomiting. Fever and chills. How is this treated? Treatment depends on the size, location, and makeup of the kidney stones. The stones will often pass out of the body through peeing. You may need to: Drink more fluid to help pass the stone. In some cases, you may be given fluids through an IV tube put into one of your veins at the hospital. Take medicine for pain. Make changes in your diet to help keep kidney stones from coming back. Sometimes, medical procedures are needed to remove a kidney stone. This may involve: A procedure to break up kidney stones using a beam of light (laser) or shock waves. Surgery to remove the kidney stones. Follow these instructions at home: Medicines Take scvm-gtt-kwfukrg and prescription medicines only as told by your doctor. Ask your doctor if the medicine prescribed to you requires you to avoid driving or using heavy machinery. Eating and drinking Drink enough fluid to keep your pee pale yellow. You may be told to drink at least 8 10 glasses of water each day. This will help you pass the stone. If told by your doctor, change your diet. This may include: ?Limiting how much salt you eat. ?Eating more fruits and vegetables. ?Limiting how much meat, poultry, fish, and eggs you eat. Follow instructions from your doctor about eating or drinking restrictions. General instructions Collect pee samples as told by your doctor. You may need to collect a pee sample: ?24 hours after a stone comes out. ?8 12 weeks after a stone comes out, and every 6 12 months after that. Strain your pee every time you pee (urinate), for as long as told. Use the strainer that your doctor recommends. Do not throw out the stone. Keep it so that it can be tested by your doctor. Keep all follow-up visits as told by your doctor. This is important. You may need follow-up tests. How is this prevented? To prevent another kidney stone: Drink enough fluid to keep your pee pale yellow. This is the best way to prevent kidney stones. Eat healthy foods. Avoid certain foods as told by your doctor. You may be told to eat less protein. Stay at a healthy weight. Where to find more information National Kidney Foundation (NKF): www.kidney.org U[employer] Care Foundation (UCF): www.urologyhealth.org Contact a doctor if: You have pain that gets worse or does not get better with medicine. Get help right away if: You have a fever or chills. You get very bad pain. You get new pain in your belly (abdomen). You pass out (faint). You cannot pee. Summary Kidney stones are rock-like masses that form inside of the kidneys. Kidney stones can cause very bad pain and can block the flow of pee. The stones will often pass out of the body through peeing. Drink enough fluid to keep your pee pale yellow. This information is not intended to replace advice given to you by your health care provider. Make sure you discuss any questions you have with your health care provider. Document Revised: 07/12/2022 Document Reviewed: 07/12/2022 [employer] Patient Education 2022 [employer]. Follow Up Care 02/11/2023 10:29:06 With:JOHN GU, CASI Amin, URL Address: [address] [place] [address] [phone] When:03/16/2024 Comments:VERÓNICAB [facility] 06-07-2022 Evaluation note Encounter Date Diagnosis Assessment Notes May, Bipolar 2 disorder, major depressive episode (ICD-10 - F31.81) [employer] Other [id number] Hospital Discharge instructions Patient Education 05/12/2022 16:11:40 Overactive Bladder, Adult Overactive Bladder, Adult Overactive bladder refers to a condition in which a person has a sudden need to pass urine. The person may leak urine if he or she cannot get to the bathroom fast enough (urinary incontinence). A person with this condition may also wake up several times in the night to go to the bathroom. Overactive bladder is associated with poor nerve signals between your bladder and your brain. Your bladder may get the signal to empty before it is full. You may also have very sensitive muscles thatmake your bladder squeeze too soon. These symptoms might interfere with daily work or social activities. What are the causes? This condition may be associated with or caused by: Urinary tract infection. Infection of nearby tissues, such as the prostate. Prostate enlargement. Surgery on the uterus or urethra. Bladder stones, inflammation, or tumors. Drinking too much caffeine or alcohol. Certain medicines, especially medicines that get rid of extra fluid in the body (diuretics). Muscle or nerve weakness, especially from: ?A spinal cord injury. ?Stroke. ?Multiple sclerosis. ?Parkinson's disease. Diabetes. Constipation. What increases the risk? You may be at greater risk for overactive bladder if you: Are an older adult. Smoke. Are going through menopause. Have prostate problems. Have a neurological disease, such as stroke, dementia, Parkinson's disease, or multiple sclerosis (MS). Eat or drink things that irritate the bladder. These include alcohol, spicy food, and caffeine. Are overweight or obese. What are the signs or symptoms? Symptoms of this condition include: Sudden, strong urge to urinate. Leaking urine. Urinating 8 or more times a day. Waking up to urinate 2 or more times a night. How is this diagnosed? Your health care provider may suspect overactive bladder based on your symptoms. He or she will diagnose this condition by: A physical exam and medical history. Blood or urine tests. You might need bladder or urine tests to help determine what is causing your overactive bladder. You might also need to see a health care provider who specializes in urinary tract problems (urologist). How is this treated? Treatment for overactive bladder depends on the cause of your condition and whether it is mild or severe. You can also make lifestyle changes at home. Options include: Bladder training. This may include: ?Learning to control the urge to urinate by following a schedule that directs you to urinate at regular intervals (timed voiding). ?Doing Kegel exercises to strengthen your pelvic floor muscles, which support your bladder. Toning these muscles can help you control urination, even if your bladder muscles are overactive. Special devices. This may include: ?Biofeedback, which uses sensors to help you become aware of your body's signals. ?Electrical stimulation, which uses electrodes placed inside the body (implanted) or outside the body. These electrodes send gentle pulses of electricity to strengthen the nerves or muscles that control the bladder. ?Women may use a plastic device that fits into the vagina and supports the bladder (pessary). Medicines. ?Antibiotics to treat bladder infection. ?Antispasmodics to stop the bladder from releasing urine at the wrong time. ?Tricyclic antidepressants to relax bladder muscles. ?Injections of botulinum toxin type A directly into the bladder tissue to relax bladder muscles. Lifestyle changes. This may include: ?Weight loss. Talk to your health care provider about weight loss methods that would work best for you. ?Diet changes. This may include reducing how much alcohol and caffeine you consume, or drinking fluids at different times of the day. ?Not smoking. Do not use any products that contain nicotine or tobacco, such as cigarettes and e-cigarettes. If you need help quitting, ask your health care provider. Surgery. ?A device may be implanted to help manage the nerve signals that control urination. ?An electrode may be implanted to stimulate electrical signals in the bladder. ?A procedure may be done to change the shape of the bladder. This is done only in very severe cases. Follow these instructions at home: Lifestyle Make any diet or lifestyle changes that are recommended by your health care provider. These may include: ?Drinking less fluid or drinking fluids at different times of the day. ?Cutting down on caffeine or alcohol. ?Doing Kegel exercises. ?Losing weight if needed. ?Eating a healthy and balanced diet to prevent constipation. This may include: ?Eating foods that are high in fiber, such as fresh fruits and vegetables, whole grains, and beans. ?Limiting foods that are high in fat and processed sugars, such as fried and sweet foods. General instructions Take cpwp-afb-linhzwu and prescription medicines only as told by your health care provider. If you were prescribed an antibiotic medicine, take it as told by your health care provider. Do notstop taking the antibiotic even if you start to feel better. Use any implants or pessary as told by your health care provider. If needed, wear pads to absorb urine leakage. Keep a journal or log to track how much and when you drink and when you feel the need to urinate. This will help your health care provider monitor your condition. Keep all follow-up visits as told by your health care provider. This is important. Contact a health care provider if: You have a fever. Your symptoms do not get better with treatment. Your pain and discomfort get worse. You have more frequent urges to urinate. Get help right away if: You are not able to control your bladder. Summary Overactive bladder refers to a condition in which a person has a sudden need to pass urine. Several conditions may lead to an overactive bladder. Treatment for overactive bladder depends on the cause and severity of your condition. Follow your health care provider's instructions about lifestyle changes, doing Kegel exercises, keeping a journal, and taking medicines. This information is not intended to replace advice given to you by your health care provider. Make sure you discuss any questions you have with your health care provider. Document Released: 09/03/2010 Document Revised: 02/28/2020 Document Reviewed: 11/23/2018 [employer] Patient Education 2020 [employer]. 05/12/2022 16:11:35 Calorie Counting for Weight Loss Calorie Counting for Weight Loss Calories are units of energy. Your body needs a certain amount of calories from food to keep you going throughout the day. When you eat more calories than your body needs, your body stores the extra calories as fat. When you eat fewer calories than your body needs, your body leon fat to get the energy it needs. Calorie counting means keeping track of how many calories you eat and drink each day. Calorie counting can be helpful if you need to lose weight. If you make sure to eat fewer calories than your bodyneeds, you should lose weight. Ask your health care provider what a healthy weight is for you. For calorie counting to work, you will need to eat the right number of calories in a day in order to lose a healthy amount of weight per week. A dietitian can help you determine how many calories youneed in a day and will give you suggestions on how to reach your calorie goal. A healthy amount of weight to lose per week is usually 1 2 lb (0.5 0.9 kg). This usually means thatyour daily calorie intake should be reduced by 500 750 calories. Eating 1,200 1,500 calories per day can help most women lose weight. Eating 1,500 1,800 calories per day can help most men lose weight. What is my plan? My goal is to have calories per day. If I have this many calories per day, I should lose around pounds per week. What do I need to know about calorie counting? In order to meet your daily calorie goal, you will need to: Find out how many calories are in each food you would like to eat. Try to do this before you eat. Decide how much of the food you plan to eat. Write down what you ate and how many calories it had. Doing this is called keeping a food log. To successfully lose weight, it is important to balance calorie counting with a healthy lifestyle that includes regular activity. Aim for 150 minutes of moderate exercise (such as walking) or 75 minutes of vigorous exercise (such as running) each week. Where do I find calorie information? The number of calories in a food can be found on a Nutrition Facts label. If a food does not have aNutrition Facts label, try to look up the calories online or ask your dietitian for help. Remember that calories are listed per serving. If you choose to have more than one serving of a food, you will have to multiply the calories per serving by the amount of servings you plan to eat. Forexample, the label on a package of bread might say that a serving size is 1 slice and that there are 90 calories in a serving. If you eat 1 slice, you will have eaten 90 calories. If you eat 2 slices, you will have eaten 180 calories. How do I keep a food log? Immediately after each meal, record the following information in your food log: What you ate. Don't forget to include toppings, sauces, and other extras on the food. How much you ate. This can be measured in cups, ounces, or number of items. How many calories each food and drink had. The total number of calories in the meal. Keep your food log near you, such as in a small notebook in your pocket, or use a mobile bruce or website. Some programs will calculate calories for you and show you how many calories you have left forthe day to meet your goal. What are some calorie counting tips? Use your calories on foods and drinks that will fill you up and not leave you hungry: ?Some examples of foods that fill you up are nuts and nut butters, vegetables, lean proteins, and high-fiber foods like whole grains. High-fiber foods are foods with more than 5 g fiber per serving. ?Drinks such as sodas, specialty coffee drinks, alcohol, and juices have a lot of calories, yet do not fill you up. Eat nutritious foods and avoid empty calories. Empty calories are calories you get from foods or beverages that do not have many vitamins or protein, such as candy, sweets, and soda. It is better to have a nutritious high-calorie food (such as an avocado) than a food with few nutrients (such as a bag of chips). Know how many calories are in the foods you eat most often. This will help you calculate calorie counts faster. Pay attention to calories in drinks. Low-calorie drinks include water and unsweetened drinks. Pay attention to nutrition labels for low fat or fat free foods. These foods sometimes have thesame amount of calories or more calories than the full fat versions. They also often have added sugar, starch, or salt, to make up for flavor that was removed with the fat. Find a way of tracking calories that works for you. Get creative. Try different apps or programs ifwriting down calories does not work for you. What are some portion control tips? Know how many calories are in a serving. This will help you know how many servings of a certain food you can have. Use a measuring cup to measure serving sizes. You could also try weighing out portions on a kitchenscale. With time, you will be able to estimate serving sizes for some foods. Take some time to put servings of different foods on your favorite plates, bowls, and cups so you know what a serving looks like. Try not to eat straight from a bag or box. Doing this can lead to overeating. Put the amount you would like to eat in a cup or on a plate to make sure you are eating the right portion. Use smaller plates, glasses, and bowls to prevent overeating. Try not to multitask (for example, watch TV or use your computer) while eating. If it is time to eat, sit down at a table and enjoy your food. This will help you to know when you are full. It will also help you to be aware of what you are eating and how much you are eating. What are tips for following this plan? Reading food labels Check the calorie count compared to the serving size. The serving size may be smaller than what youare used to eating. Check the source of the calories. Make sure the food you are eating is high in vitamins and proteinand low in saturated and trans fats. Shopping Read nutrition labels while you shop. This will help you make healthy decisions before you decide to purchase your food. Make a grocery list and stick to it. Cooking Try to cook your favorite foods in a healthier way. For example, try baking instead of frying. Use low-fat dairy products. Meal planning Use more fruits and vegetables. Half of your plate should be fruits and vegetables. Include lean proteins like poultry and fish. How do I count calories when eating out? Ask for smaller portion sizes. Consider sharing an entree and sides instead of getting your own entree. If you get your own entree, eat only half. Ask for a box at the beginning of your meal and put the rest of your entree in it so you are not tempted to eat it. If calories are listed on the menu, choose the lower calorie options. Choose dishes that include vegetables, fruits, whole grains, low-fat dairy products, and lean protein. Choose items that are boiled, broiled, grilled, or steamed. Stay away from items that are buttered,battered, fried, or served with cream sauce. Items labeled crispy are usually fried, unless stated otherwise. Choose water, low-fat milk, unsweetened iced tea, or other drinks without added sugar. If you want an alcoholic beverage, choose a lower calorie option such as a glass of wine or light beer. Ask for dressings, sauces, and syrups on the side. These are usually high in calories, so you should limit the amount you eat. If you want a salad, choose a garden salad and ask for grilled meats. Avoid extra toppings like jacques, cheese, or fried items. Ask for the dressing on the side, or ask for olive oil and vinegar or lemon to use as dressing. Estimate how many servings of a food you are given. For example, a serving of cooked rice is cup orabout the size of half a baseball. Knowing serving sizes will help you be aware of how much food you are eating at restaurants. The list below tells you how big or small some common portion sizes arebased on everyday objects: ?1 oz 4 stacked dice. ?3 oz 1 deck of cards. ?1 tsp 1 . ?1 Tbsp a ping-pong ball. ?2 Tbsp 1 ping-pong ball. ? cup baseball. ?1 cup 1 baseball. Summary Calorie counting means keeping track of how many calories you eat and drink each day. If you eat fewer calories than your body needs, you should lose weight. A healthy amount of weight to lose per week is usually 1 2 lb (0.5 0.9 kg). This usually means reducing your daily calorie intake by 500 750 calories. The number of calories in a food can be found on a Nutrition Facts label. If a food does not have aNutrition Facts label, try to look up the calories online or ask your dietitian for help. Use your calories on foods and drinks that will fill you up, and not on foods and drinks that will leave you hungry. Use smaller plates, glasses, and bowls to prevent overeating. This information is not intended to replace advice given to you by your health care provider. Make sure you discuss any questions you have with your health care provider. Document Released: 11/07/2006 Document Revised: 07/27/2019 Document Reviewed: 10/07/2017 [employer] Patient Education 2020 [employer]. Follow Up Care 02/15/2022 09:22:15 With:UNRULY CANTU, Agus Mcallister, URL Address: [address] [place], [place] [id number] Business (1) When: Unknown [facility] 06-13-2022 Evaluation note* Encounter Date Diagnosis Assessment Notes Treatment Notes Treatment Clinical Notes Apr, Bipolar 2 disorder, major depressive episode (ICD-10 - F31.81) [employer] Other 05-19-2022 Evaluation note* Encounter Date Diagnosis Assessment Notes Treatment Notes Treatment Clinical Notes March, Bipolar 2 disorder, major depressive episode (ICD-10 - F31.81) [employer] Other 05-09-2022 Evaluation note* Encounter Date Diagnosis Assessment Notes Treatment Notes Treatment Clinical Notes March, Bipolar 2 disorder, major depressive episode (ICD-10 - F31.81) [employer] Other 05-06-2022 Evaluation note* Encounter Date Diagnosis Assessment Notes Treatment Notes Treatment Clinical Notes March, Bipolar 2 disorder, major depressive episode (ICD-10 - F31.81) [employer] Other 04-06-2022 Evaluation note* Encounter Date Diagnosis Assessment Notes Treatment Notes Treatment Clinical Notes Feb, Bipolar 2 disorder, major depressive episode (ICD-10 - F31.81) [employer] Other 04-06-2022 Evaluation note* Encounter Date Diagnosis Assessment Notes Treatment Notes Treatment Clinical Notes Feb, Pre-diabetes (ICD-10 - R73.09) Feb, Abnormal weight gain (ICD-10 - R63.5) Feb, Mixed hyperlipidemia (ICD-10 - E78.2) Feb, PCOS (polycystic ovarian syndrome) (ICD-10 - E28.2) Feb, Bipolar affective disorder (ICD-10 - F31.9) Feb, Eating disorder (ICD-10 - F50.9) Feb, Migraine (ICD-10 - G43.909) Feb, Metabolic syndrome X (ICD-10 - E88.81) Feb, Palpitations (ICD-10 - R00.2) [employer] Other 01-17-2022 Evaluation note* Encounter Date Diagnosis Assessment Notes Treatment Notes Treatment Clinical Notes Nov, Major depressive disorder, recurrent severe without psychotic features (ICD-10 - F33.2) [employer] Other 01-03-2022 Evaluation note* Encounter Date Diagnosis Assessment Notes Treatment Notes Treatment Clinical Notes Nov, Bipolar 2 disorder, major depressive episode (ICD-10 - F31.81) [employer] Other 12-08-2021 NoteHISTORY: Left lower quadrant pain, constipation, abnormal CXR PROCEDURE: [employer] II VCT 64. Without intravenous or oral contrast administration, axial helical images through the abdomen and pelvis were performed, 5 mm slice thickness. Comparison is made with the prior examination of October 22, 2021 ([facility]). FINDINGS: BOTH KIDNEYS AND COLLECTING SYSTEMS: Normal cortical volume. Bilateral peripheral caliceal 2 mm calcifications. No inflammation or obstruction. No collecting system dilatation. No bladder stone, air collection or focal wall thickening. Sclerotic areas within the left sacrum and neighboring iliac bone near the SI joint account for the recent plain film findings. These are nonaggressive, likely benign bone islands. Unremarkable lung bases, liver, spleen, gallbladder, biliary tree, pancreas and adrenal glands. Normal volume of stool throughout the colon. No inflammation or obstruction. No ascites or pelvic fluid. IMPRESSION: 1. Subcentimeter sclerotic areas within the left sacrum and neighboring iliac bone, nonaggressive appearance (benign bone islands) and account for the recent plain film findings. 2. Punctate caliceal stones, no inflammation or obstruction. 3. No bowel inflammation. Report reported and signed by Abraham Pena on 10/28/2021 [id number]11-17-2021 Evaluation note* Encounter Date Diagnosis Assessment Notes Treatment Notes Treatment Clinical Notes Sep, Bipolar 2 disorder, major depressive episode (ICD-10 - F31.81) [facility] Other Evaluation + Plan note Future Appointments Appointment Date:01/12/2023 01:45:00 PM Scheduled Provider:Agus OLSON MD Location:[facility] Appointment Type:URO Office Visit [facility] Evaluation + Plan note Future Appointments Appointment Date:03/21/2024 01:00:00 PM Scheduled Provider:CASI LOPEZ PA-C Location:[facility] Appointment Type:URO Office Visit [facility] evaluation [facility] [employer] Other Evaluation noteNo InformationNort [facility] Other Evaluation noteNo assessment information available [facility] Work Phone: Evaluation note* Diagnosis Migraine without aura and without status migrainosus, not intractable (CMS/HCC) documented in this encounter [facility] Other History general Narrative - Reported* Type Description Date Medical History chronic depression Medical History polycystic ovaries Surgical History tonsillectomy and adenoidectomy Surgical History tubes in ears 1992 Hospitalization History pneumonia as a [facility] Other History general [facility] Other History general [facility] Other History general Narrative - Reported* Type Description Date Medical History chronic depression Medical History polycystic ovaries Medical History anxiety Medical History Panic attacks Medical History bipolar Medical History hyperlipidemia Medical History hypertriglyceridemia Medical History migraine headache Medical History palpitations Medical History heart murmur Medical History fatigue Surgical History tonsillectomy and adenoidectomy Surgical History tubes in ears 1991 Surgical History cystoscopy Hospitalization History pneumonia as a [place] Other Hospital course Narrative No data available for this section [facility] Progress note No data available for this section [facility] Summary Purpose Family History No Family History Records FoundNo Family History Records FoundNo Family History Records FoundNo Family History Records FoundNo Family History Records Found Advance Directives No Advanced Directives Records FoundNo Advanced Directives Records FoundNo Advanced Directives Records FoundNo Advanced Directives Records FoundNo Advanced Directives Records Found Additional Source Comments INFORMATION SOURCE (unrecogn ized section and content) DATE CREATED AUTHOR 04/10/2022 [facility] Specialist DATE CREATED AUTHOR AUTHOR'S ORGANIZ ATION 11/17/[address] 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 This clinical summary was aggregated from multiple sources. Caution should be exercised in using it in the provision of clinical care. This summary normalizes information from multiple sources, and as a consequence, information in this document may materially change the coding, format and clinical context of patient data. In addition, data may be omitted in some cases. CLINICAL DECISIONS SHOULD BE BASED ON THE PRIMARY CLINICAL RECORDS. [facility]. provides no warranty or guarantee of the accuracy or completeness of information in this document.
[2024-01-30 18:07] LABS: Age Gdln ACOG Testing Note (.); HPV Aptima Negative (Negative); IGP, Aptima HPV, rfx 16/18,45 Note (.)
== END 2024-01-25 19:42 | disposition home or self-care (01) ==
LOC: LAB 19:41
PROVIDERS: PCP Family Medicine; Visit Provider Obstetrics & Gynecology
DX: Z01.419 Encounter for gynecological examination (general) (routine) without abnormal findings (principal)
CPT/HCPCS: 87624; G0145

== ENCOUNTER 2025-03-06 20:30 | Outpatient (REF) | payer OTHER, SELFPAY ==
--- OUTSIDE RECORDS SUMMARY | 2025-03-06 20:44 | XMS_ITS | CCD ---
Author Organization [facility] Care Team Providers Care Nipple Maker Name Role Phone CASI RUGGIERO Primary Care Physician ZaneParas Unavailable Odette Brenner Unavailable Roberto Rao Unavailable Mouna Kessler Unavailable DR ADI RIZVI Admitting Unavailable BELKYS, DR LÓPEZ Attending Unavailable BAHAMN, DR BARRAZA Primary Care Unavailable BELKYS, DR LÓPEZ Consulting Unavailable Casi Ruggiero MD Primary Care Provider CASI RUGGIERO Primary Care Physician CASI LOPEZ Attending Unavailable CASI LOPEZ Attending Unavailable Tam Grewal Attending Unavailab Tam Schreiber Admitting Unavailab Casi Martin Primary Care Un available MAT FOY Attending Unavailab CASI Briceno Attending Unavailable MOY LUGO Attending Unavailable ADI RIZVI Referring Unavailable VALERIA IVORY Attending Unavailable CANDELARIA SOLORZANO Attending Unavailable CASI LOPEZ Referring Unavailable VALERIA IVORY Referring Unavailable MAT FOY Referring Unavailab CANDELARIA Sheets Attending Unavailable CASI RUGGIERO Attending Unavailable RUPALI SHAH Attending Unavailable CASI RUGGIERO Attending Unavailable NA BARRIOS Attending Unavailab MAT Rivera Attending Unavailab le VALERIA IVORY Referring Unavailable MAT FOY Attending Unavailab MAT Rivera Attending Unavailab CASI Kumar Referring Unavailable Allergies Allergy Classification Reported Allergen(s) Allergy Type Date of Onset Reaction(s) Facility (5 sources) ARIPiprazole lauroxil; Translations: [aripiprazole] Drug Allergy Adverse reactions (finding) [facility] [place] (20 sources) PARoxetine; Translations: [paroxetine] Drug Allergy 3 Suicidal thoughts (finding) [employer] [facility] [employer] Other (20 sources) ARIPiprazole Drug Allergy 3 akathisia [facility] [employer] Other (20 sources) risperiDONE Drug Allergy [facility] [employer] Other (1 source) ARIPiprazole Drug Allergy 2 [facility] (1 source) PARoxetine Drug Allergy 2 [facility] (1 source) risperiDONE Drug Allergy 2 [facility] Medications Current Medications Medication Drug Class(es) Dates Sig (Normalized) Sig (Original) [id number] 200 actuat albuterol 0.09 mg/actuat metered dose [...] Inhalation every 4 hrs 90 MCG Active amoxicillin 875 mg / clavulanate 125 mg oral tablet (7 sources) Penicillin-class Antibacterial Start: 11-12-2024 End: 11-19-2024 take 1 tablet by mouth in the morning amoxicillin-clavulanate (Augmentin) 875-125 MG tablet Indications: Acute right otitis media Take 1 tablet (875 mg) by mouth in the morning and 1 tablet (875 mg) before bedtime. Do all this for 7 days. 14 tablet 11/12/2024 11/19/2024 Active Start: 09-07-2024 End: 09-14-2024 take 1 tablet by mouth in the morning amoxicillin-clavulanate (Augmentin) 875-125 MG tablet Indications: Acute non-recurrent pansinusitis Take 1 tablet (875 mg) by mouth in the morning and 1 tablet (875 mg) before bedtime. Do all this for 7 days. 14 tablet 09/07/2024 09/14/2024 Active atorvastatin 10 mg oral tablet (20 sources) HMG-CoA Reductase Inhibitor Start: 11-06-2024 End: 11-06-2025 take 1 tablet by mouth once daily atorvastatin (Lipitor) 10 MG tablet Indications: Mixed hyperlipidemia (CMS/HCC) Take 1 tablet (10 mg) by mouth Daily 90 tablet 12/21/2024 03/21/2025 Active Start: 06-28-2023 End: 07-27-2024 take 1 tablet by mouth in the morning atorvastatin (Lipitor) 10 MG tablet Indications: Mixed hyperlipidemia (CMS/HCC) Take 1 tablet (10 mg) by mouth in the morning. 30 tablet 11 06/28/2023 07/27/2024 Discontinued (Side effects) benztropine mesylate 1 mg oral tablet (20 sources) Anticholinergic, Antihistamine Start: 03-15-2023 End: 10-30-2024 benztropine 1 mg Tab Refills(s) 0 Start Date: 03/16/23 Status: Ordered Blood Glucose Monitoring Suppl (FreeStyle Lite) device (8 sources) Start: 01-15-2025 Blood Glucose Monitoring Suppl (FreeStyle Lite) device Indications: Type 2 diabetes mellitus without complication, without long-term current use of insulin Check BS daily. 1 each 01/15/2025 Active Start: 01-15-2025 Blood Glucose Monitoring Suppl (FreeStyle Lite) device Indications: Type 2 diabetes mellitus without complication, without long-term current use of insulin (CMS/HCC) Check BS daily. 1 each 01/15/2025 Active cetirizine hydrochloride 10 mg oral tablet (1 source) Histamine-1 Receptor Antagonist take 1 tablet by mouth once daily as needed cetirizine (ZyrTEC ALLERGY) 10 MG tablet 1 tablet Orally Once a day. PRN 0 Active cholecalciferol 0.05 mg oral capsule (20 sources) Vitamin D cholecalciferol (Vitamin D-3) 50 MCG (1999 UT) capsule Take by mouth Active cyclobenzaprine hydrochloride 10 mg oral tablet (9 sources) Muscle Relaxant Start: 2023 End: 2024 take 1 tablet by mouth three times daily as needed for muscle spasms cyclobenzaprine (Flexeril) 10 MG tablet Indications: Spasm of cervical paraspinous muscle Take 1 tablet (10 mg) by mouth 3 (three) times a day as needed for muscle spasms for up to 5 days 15 tablet 11/19/2024 01/15/2025 Discontinued 1 ml erenumab-aooe 140 mg/ml auto-injector (20 sources) Start: 2021 inject 1 mg by subcutaneous injection every [...] tablet by mouth every twe nty-four hours ethinyl estradiol 0.035 mg / norgestimate 0.25 mg oral tablet (15 sources) Progestin, Estrogen Start: 12-07-2024 End: 01-04-2025 take 1 tablet by mouth once daily, then take 1 tablet by mouth once daily norgestimate-ethinyl estradiol (Sprintec 28) 0.25-35 MG-MCG tablet Indications: Uses control Take 1 tablet by mouth Daily for 28 days Take 1 tablet by mouth daily 28 tablet 11 12/07/2024 Active fenofibrate 48 mg oral tablet (9 sources) Peroxisome Proliferator Receptor alpha Agonist Start: 06-28-2023 End: 09-07-2024 take 1 tablet by mouth in the morning fenofibrate (Tricor) 48 MG tablet Indications: Mixed hyperlipidemia (CMS/HCC) Take 1 tablet (48 mg) by mouth in the morning. 30 tablet 11 06/28/2023 09/07/2024 Discontinued (Therapy completed) Fiber (1 source) Fiber - as direc ele Orally Active fluocinonide 0.5 mg/ml topical solution (20 sources) Corticosteroid Start: 05-28-2024 fluocinonide (Lidex) 0.05 % external solution Indications: Other seborrheic dermatitis Apply to affected areas on the scalp, up to twice a day when flared, 30 day supply 60 mL 11 05/28/2024 Active fluticasone propionate 0.05 mg/actuat metered dose nasal spray (20 sources) Corticosteroid Start: 11-08-2024 take 2 spray(s) nasal route once daily fluticasone (Flonase) 50 MCG/ACT nasal spray Indications: Allergy, sequela Administer 2 sprays into each nostril Daily Shake gently. Before first use, prime pump. After use, clean tip and replace cap. 16 g 2 11/08/2024 Active End: 11-08-2024 take 1 spray(s) nasal route once daily as needed fluticasone (Flonase) 50 MCG/ACT nasal spray 1 spray in each nostril Nasally Once a day. PRN for 30 days 11/08/2024 Discontinued (Reorder) gabapentin 100 mg oral capsule (20 sources) Anti-epileptic Agent Start: 01-13-2022 End: 10-30-2024 take 1 mg by mouth three times daily gabapentin 100 mg Cap mg cap(s), Oral, TID, Refills(s) 0 Start Date: 01/13/22 Status: Ordered take 1 capsule by [facility] every twenty-four hours Gabapentin 100 MG 1 capsule Orally Once a day for 30 days f41.1 Active hydrOXYzine hydrochloride 50 mg oral tablet (20 sources) Antihistamine Start: 05-19-2022 hydrOXYzine HC l (Atarax) 50 MG tablet 50 mg. 05/19/2022 Active Start: 02-24-2022 hydrOXYzine [place] (Vistaril) 50 MG capsule 1 capsule as needed Orally at bedtime 0 02/24/2022 Active take 1 tablet by [facility] every eight hours hydrOXYzine HCl 25 MG [...] Start Date: 01/13/22 Status: Ordered levothyroxine sodium 0.05 mg oral tablet (20 sources) l-Thyroxine Start: 11-27-2024 levothyroxine 50 mcg (0.05 mg) Tab 50 mcg = 1 tab(s), Refills(s) 0 Start Date: 11/27/24 Status: Ordered Start: 07-27-2024 End: 07-27-2025 take 1 tablet by mouth before mealtime levothyroxine (Synthroid) 50 MCG tablet Indications: Acquired hypothyroidism (CMS/HCC) Take 1 tablet (50 mcg) by mouth in the morning. Take before meals. 90 tablet 1 02/25/2025 Active Start: 04-14-2023 End: 07-27-2024 take 1 tablet by mouth before mealtime levothyroxine (Synthroid) 25 MCG tablet Indications: Hypothyroidism, unspecified type (CMS/HCC) Take 1 tablet (25 mcg) by mouth in the morning. Take before meals. 30 tablet 04/14/2023 07/27/2024 Discontinued lisinopril 2.5 mg oral tablet (10 sources) Angiotensin Converting Enzyme Inhibitor Start: 01-15-2025 End: 07-14-2025 take 1 tablet by mouth once daily lisinopril 2.5 MG tablet Indications: Type 2 diabetes mellitus without complication, without long-term current use of insulin Take 1 tablet (2.5 mg) by mouth Daily 30 tablet 5 01/15/2025 07/14/2025 Active metFORMIN hydrochloride 1000 mg oral tablet (20 sources) Biguanide Start: 01-15-2025 End: 01-15-2026 take 1 tablet by mouth in the morning metFORMIN (Glucophage) 1000 MG tablet Indications: Type 2 diabetes mellitus without complication, without long-term current use of insulin Take 1 tablet (1,000 mg) by mouth in the morning and 1 tablet (1,000 mg) in the evening. Take with meals. 60 tablet 11 01/15/2025 01/15/2026 Active Start: 08-14-2024 End: 01-15-2025 take 1 tablet by mouth three times daily at bedtime metFORMIN (Glucophage) 500 MG tablet Indications: PCOS (polycystic ovarian syndrome) TAKE 1 TABLET BY MOUTH THREE TIMES DAILY (MORNING, EVENING AND BEFORE BEDTIME) 90 tablet 3 08/14/2024 01/15/2025 Discontinued Start: 05-14-2024 take 1 tablet by sukhdev th three times daily at bedtime metFORMIN (Glucophage) 500 MG tablet Indications: PCOS (polycystic ovarian syndrome) TAKE 1 TABLET BY MOUTH THREE TIMES DAILY (IN THE MORNING, EVENING, AND BEFORE BEDTIME) 90 tablet 2 05/14/2024 Active Start: 01-13-2022 End: 01-08-2024 take 1 mg by mouth once daily metformin 500 mg ER Tab mg tab(s), Oral, Daily, Refills(s) 0 Start Date: 01/13/22 Status: Ordered take 1 tablet by sukhdev th every twelve hours metFORMIN HCl 500 MG [...] Status: Ordered ondansetron 4 mg oral tablet (3 sources) Serotonin-3 Receptor Antagonist Start: 03-16-2023 ondansetron 4 mg Tab Refills(s) 0 Start Date: 03/16/23 Status: Ordered predniSONE 20 mg oral tablet (2 sources) Start: 11-19-2024 End: 11-24-2024 take 1 tablet by mouth in the morning predniSONE (Deltasone) 20 MG tablet Indications: Spasm of cervical paraspinous muscle Take 1 tablet (20 mg) by mouth in the morning and 1 tablet (20 mg) before bedtime. Do all this for 5 days. 10 tablet 11/19/2024 11/24/2024 Active 24 hr propranolol hydrochloride 80 mg extended release oral capsule (20 sources) beta-Adrenergic Lin Start: 03-30-2024 End: 11-06-2025 take 1 capsule by mouth once daily propranolol LA (Inderal LA) 80 MG 24 hr capsule Indications: Nonintractable headache, unspecified chronicity pattern, unspecified headache type Take 1 capsule (80 mg) by mouth Daily Do not crush, chew, or split. 90 capsule 1 11/06/2024 11/06/2025 Active Start: 01-03-2024 take 1 capsule by [facility] every twenty-four hours at bedtime propranolol XL [...] 01/13/22 Status: Ordered take 1 capsule by [facility] once daily Propranolol HCl ER 60 MG 1 capsule Orally Once a day Active 0.25 mg, 0.5 mg dose 1.5 ml semaglutide 1.34 mg/ml pen injector (4 sources) Start: 03-03-2025 End: 06-01-2025 inject 0.25 mg by subcutaneous injection every week semaglutide (Ozempic, 0.25 or 0.5 MG/DOSE,) 2 MG/1.5ML solution pen-injector Indications: Type 2 diabetes mellitus without complication, without long-term current use of insulin Inject 0.25 mg under the skin 1 (one) time per week 1 each 1 03/03/2025 06/01/2025 Active Semaglutide, 2 MG/DOSE, (Ozempic, 2 MG/DOSE,) 8 MG/3ML solution pen-injector (17 sources) Start: 02-14-2024 End: 10-30-2024 inject 2 mg by subcutaneous injection every week Semaglutide, 2 MG/DOSE, (Ozempic, 2 MG/DOSE,) 8 MG/3ML solution pen-injector Indications: Morbid (severe) obesity due to excess calories (CMS/HCC) Inject 2 mg under the skin 1 (one) time per week 9 mL 02/14/2024 10/30/2024 Discontinued (Therapy completed) Start: 02-14-2024 inject 2 mg by subcu taneous injection every week Semaglutide, 2 MG/DOSE, (Ozempic, 2 MG/DOSE,) 8 MG/3ML solution pen-injector Indications: Morbid (severe) obesity due to excess calories (CMS/HCC) Inject 2 mg under the skin 1 (one) time per week 9 mL 02/14/2024 Active Start: 10-03-2023 inject 2 mg by subcu taneous injection every week Semaglutide, 2 MG/DOSE, (Ozempic, 2 MG/DOSE,) 8 MG/3ML solution pen-injector Indications: Morbid (severe) obesity due to excess calories (CMS/HCC) Inject 2 mg under the skin 1 (one) time per week. 9 mL 0 10/03/2023 Active sodium fluoride 0.011 mg/mg oral gel (20 sources) Start: 08-09-2023 sodium flouride ([place], [place]) 1.1 % dental gel BRUSH ON TEETH FOR 3 TO 5 MINUTES ONCE DAILY 08/09/2023 Active tamsulosin hydrochloride 0.4 mg oral capsule (1 source) alpha-Adrenergic Lin Start: 03-16-2023 End: 03-30-2023 take 1 capsule by mouth once daily Flomax 0.4 mg Cap 0.4 mg = 1 cap(s), Oral, Daily, X 14 day(s), # 14 cap(s), Refills(s) 0, Pharmacy: [id number], 158, cm, 03/16/23 13:48:00 EDT, Height/Length Dosing, 91, kg, 03/16/23 13:48:00 EDT, Weight Dosing Start Date: 03/16/23 Stop Date: 03/30/23 Status: Ordered 24 hr venlafaxine 150 mg extended release oral capsule (20 sources) Serotonin and Norepinephrine Reuptake Inhibitor Start: 01-20-2022 venlafaxine XR (Effexor XR) 150 MG 24 hr capsule 1 capsule. 01/20/2022 Active Start: 01-13-2022 take 1 mg by mouth once daily Effexor XR 150 mg Cap-ER mg cap(s), Oral, Daily, Refills(s) 0 Start Date: 01/13/22 Status: Ordered Start: 07-25-2021 take 1 capsule by mo uth once daily at mealtime venlafaxine XR (Effexor XR) 75 MG 24 hr capsule 1 capsule with food Orally Once a day. Take with 150mg 01/20/2022 Active Start: 07-25-2021 take 1 mg [...] Orally Once a day Not-Taking Vitamin D3 (4 sources) Start: 01-13-2022 Vitamin D3 Ref ills(s) [...] Start: 08-05-2021 take 1 tablet by sukhdev th every twenty-four hours Saphris 5 MG 1 tablet under the tongue and allow to dissolve Sublingual once a day for 30 days Jul, Not-Taking cariprazine 3 mg oral capsule (20 sources) Atypical Antipsychotic Start: 12-29-2024 take 1 capsule by mouth once daily Vraylar 3 MG capsule TAKE 1 CAPSULE BY MOUTH ONCE DAILY . DISCONTINUE THE 1.5MG DOSE. 12/29/2024 Active Start: 12-07-2024 End: 01-15-2025 take 1 capsule by mouth once daily Vraylar 1.5 MG capsule Take 1 capsule by mouth Daily 12/07/2024 01/15/2025 Discontinued (Therapy completed) Start: 05-12-2022 Vraylar Oral, Daily Start Date: 05/12/22 Status: Ordered Start: 04-07-2022 take 1 capsule by mo uth every twenty-four hours Vraylar 1.5 MG 1 capsule Orally Once a day for 90 days March, Active End: 10-30-2024 take 1 capsule by mouth in the morning Vraylar 3 MG capsule Take 1 capsule by mouth in the morning. 10/30/2024 Discontinued (Therapy completed) cephalexin 250 mg oral tablet (12 sources) Cephalosporin Antibacterial take 2 capsules by mouth once daily Keflex 250 MG 2 capsules Orally qd Not-Taking fluconazole 150 mg oral tablet (3 sources) Azole Antifungal Start: 09-14-20 End: 10-02-20 fluconazole (Diflucan) 150 MG tablet TAKE ONE TABLET BY MOUTH A ONE-TIME DOSE 09/14/2024 10/02/2024 Discontinued (Therapy completed) Start: 09-13-2024 End: 09-13-2024 take 1 tablet by mouth once fluconazole (Diflucan) 150 MG tablet Indications: Vaginal yeast infection Take 1 tablet (150 mg) by mouth 1 (one) time for 1 dose 1 tablet 09/13/2024 09/13/2024 Active ibuprofen 600 mg oral tablet (11 sources) Nonsteroidal Anti-inflammatory Drug Start: 07-05-2024 End: 10-03-2024 take 1 tablet by mouth every eight hours for pain ibuprofen 600 MG tablet Indications: Mild pain Take 1 tablet (600 mg) by mouth every 8 (eight) hours if needed for mild pain 90 tablet 07/05/2024 10/03/2024 montelukast 10 mg oral tablet (15 sources) Leukotriene Receptor Antagonist take 1 tablet by mouth every twenty-four hours Singulair 10 MG 1 tablet Orally Once a day Not-Taking phentermine hydrochloride 37.5 mg oral tablet (3 sources) Sympathomimetic Amine Anorectic Start: 03-21-2024 End: 07-24-2024 take 1 tablet by mouth before mealtime phentermine (Adipex-P) 37.5 MG tablet Indications: Encounter for weight management Take 1 tablet (37.5 mg) by mouth in the morning. Take before meals. 30 tablet 03/21/2024 07/24/2024 Discontinued (Therapy completed) prazosin 1 mg oral capsule (20 sources) alpha-Adrenergic Lin Start: 01-13-2022 End: 07-24-2024 take 1 capsule by mouth at bedtime prazosin (Minipress) 1 MG capsule TAKE 1 CAPSULE BY MOUTH AT BEDTIME WITH 2 MG CAPSULE 08/29/2022 07/24/2024 Discontinued (Therapy completed) Start: 01-13-2022 End: 07-24-2024 prazosin (Minipress) 2 MG ca psule 1 capsule. 01/20/2022 07/24/2024 Discontinued (Therapy completed) Start: 03-04-2021 take 1 capsule by mo uth every twenty-four hours Prazosin HCl 1 MG 1 capsule at bedtime Orally Once a day for 90 days with 2 mg 26 Nov, 2021 Active Start: 03-04-2021 take 1 capsule by mo uth every twenty-four hours take 1 capsule by mo uth every twenty-four hours Prazosin HCl 2 MG 1 capsule at bedtime Orally Once a day for 90 days Active take 1 capsule by mo uth every twenty-four hours Problems Active Problems Problem Classification Problem Date Documented Date Episodic/Chronic Abdominal pain (5 sources) Abdominal pain; Translations: [Epigastric pain] 01-13-2022 Episodic Anxiety disorders (20 sources) Anxiety; Translations: [Mixed anxiety and depressive disorder] Onset: 2023 01-11-2022 Chronic Asthma (4 sources) Asthma 01-11-2022 Chronic Calculus of urinary tract (7 sources) Kidney stone; Translations: [Calculus of kidney] Onset: 05-12-2022 Episodic Cardiac dysrhythmias (3 sources) Palpitations; Translations: [Tachycardia] Onset: 02-24-2022 Resolved: 02-24-2022 Episodic Diabetes mellitus without complication (8 sources) Type 2 diabetes mellitus without complication; Translations: [Type 2 diabetes mellitus without complications] 01-15-2025 Chronic Disorders of lipid metabolism (20 sources) Mixed hyperlipidemia; Translations: [Mixed hyperlipidemia] Onset: 02-24-2022 Resolved: 02-24-2022 Chronic Fever of unknown origin (2 sources) Fever; Translations: [Fever, unspecified] 12-18-2024 Episodic Genitourinary symptoms and ill-defined conditions (7 sources) Stress incontinence (female) (male); Translations: [Genuine stress incontinence] Onset: 05-12-2022 Chronic Genitourinary symptoms and ill-defined conditions (6 sources) Nocturia; Translations: [Nocturia] Onset: 03-16-2023 01-13-2022 Episodic Headache; including migraine (20 sources) Migraine; Translations: [Migraine, unspecified, not intractable, without status migrainosus] Onset: 02-24-2022 Resolved: 02-24-2022 01-11-2022 Chronic Headache; including migraine (4 sources) Headache; Translations: [Nonintractable headache, unspecified chronicity pattern, unspecified headache type] 11-06-2024 Episodic Heart valve disorders (4 sources) Heart murmur 01-11-2022 Episodic Immunizations and screening for infectious disease (3 sources) Encounter for screening for human papillomavirus (HPV); Translations: [Patient encounter status] Onset: 11-17-2022 10-02-2024 Episodic Menstrual disorders (20 sources) Irregular periods; Translations: [Irregular menstruation, unspecified] Onset: 2023 2023 Chronic Miscellaneous mental health disorders (13 sources) Eating disorder; Translations: [Eating disorder, unspecified] Onset: 02-24-2022 Resolved: 02-24-2022 Chronic Mood disorders (20 sources) Depressive disorder; Translations: [Bipolar II disorder, most recent episode major depressive] Onset: 04-02-2021 Resolved: 01-12-2024 01-11-2022 Chronic Mycoses (1 source) Candidiasis of vagina; Translations: [Vaginal yeast infection] 09-13-2024 Episodic Nutritional deficiencies (20 sources) Vitamin D deficiency; Translations: [Vitamin D deficiency, unspecified] Onset: 2023 2023 Chronic Other connective tissue disease (4 sources) Spasm of cervical paraspinous muscle; Translations: [Other muscle spasm] 11-08-2024 Episodic Other connective tissue disease (2 sources) Poor posture; Translations: [Abnormal posture] 11-19-2024 Episodic Other endocrine disorders (12 sources) Polycystic ovaries; Translations: [Polycystic ovarian syndrome] Chronic Other endocrine disorders (1 source) Polycystic ovarian syndrome Onset: 02-24-2022 Resolved: 02-24-2022 Chronic Other endocrine disorders (20 sources) Polycystic ovary syndrome; Translations: [Polycystic ovarian syndrome] Onset: 2023 2023 Chronic Other liver diseases (2 sources) Steatosis of liver; Translations: [Fatty (change of) liver, not elsewhere classified] 10-15-2024 Chronic Other liver diseases (4 sources) Elevated liver enzymes level; Translations: [Abnormal levels of other serum enzymes] 10-05-2024 Episodic Other lower respiratory disease (2 sources) Snoring; Translations: [Snoring] 03-03-2025 Episodic Other nervous system disorders (1 source) Polyneuropathy; Translations: [Polyneuropathy, unspecified] 10-05-2024 Chronic Other nutritional; endocrine; and metabolic disorders (20 sources) Body mass index 40+ - severely obese; Translations: [Body mass index (BMI) 40.0-44.9, adult] Onset: 01-13-2022 Chronic Other nutritional; endocrine; and metabolic disorders (20 sources) Metabolic syndrome X; Translations: [Metabolic syndrome] Onset: 2023 2023 Chronic Other nutritional; endocrine; and metabolic disorders (1 source) Metabolic syndrome Onset: 02-24-2022 Resolved: 02-24-2022 Chronic Other nutritional; endocrine; and metabolic disorders (20 sources) Obesity caused by energy imbalance; Translations: [Morbid (severe) obesity due to excess calories] Onset: 2023 2023 Chronic Other nutritional; endocrine; and metabolic disorders (2 sources) Body mass index 30+ - obesity; Translations: [Body mass index (BMI) 39.0-39.9, adult] 11-19-2024 Chronic Other screening for suspected conditions (not mental disorders or infectious disease) (4 sources) Encounter for screening for malignant neoplasm of cervix; Translations: [ENC SCREENING MALIG NEOPLASM CERV] Onset: 11-10-2022 Episodic Other upper respiratory infections (2 sources) Acute pansinusitis; Translations: [Acute pansinusitis, unspecified] 09-07-2024 Episodic Otitis media and related conditions (1 source) Acute right otitis media; Translations: [Otitis media, unspecified, right ear] 11-12-2024 Episodic Spondylosis; intervertebral disc disorders; other back problems (2 sources) Sacroiliac disorder; Translations: [Sacrococcygeal disorders, not elsewhere classified] 01-19-2025 Episodic Substance-related disorders (20 sources) Abuse of laxatives; 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] Onset: 2023 2023 Chronic Thyroid disorders (8 sources) Acquired hypothyroidism; Translations: [Hypothyroidism, unspecified] 10-02-2024 Chronic Unclassified (4 sources) Asymptomatic microscopic hematuria 01-13-2022 Urinary tract infections (7 sources) Urinary tract infectious disease; Translations: [Urinary tract infection, site not specified] Onset: 05-12-2022 Episodic Viral infection (2 sources) Disease caused by 2019-nCoV; Translations: [COVID-19] 12-18-2024 Episodic Past or Other Problems Problem Classification Problem Date Documented Da te Episodic/Chronic Diabetes mellitus without complication (20 sources) Prediabetes; Translations: [Other abnormal glucose] Onset: 02-24-2022 Resolved: 02-24-2022 Episodic Mood disorders (20 sources) Mood disorders Onset: 06-28-2023 Resolved: 01-12-2024 06-28-2023 Other gastrointestinal disorders (20 sources) Constipation; Translations: [Constipation, unspecified] Onset: 10-22-2021 06-28-2023 Episodic Other nutritional; endocrine; and metabolic disorders (1 source) Abnormal weight gain Onset: 02-24-2022 Resolved: 02-24-2022 Episodic Residual codes; unclassified (20 sources) Insomnia; Translations: [Insomnia, unspecified] Onset: 2023 2023 Episodic Results Test Name Value Interpretation Reference Range Facility HCG ( test) Ql (U)o n 03-06-2025 Interpretation and review of laboratory results Normal [facility] Preg Test, Ur Negative Negative [facility] HbA1c (Bld) [Mass fraction]o n 01-04-2025 [facility] POCT glycosylated hemoglobin (Hb A1C) docked deviceon 01-04-2025 HbA1c (Bld) [Mass fraction] 6.7 % [facility] - Microbiology an d Antimicrobial susceptibilityon 12-18-2024 SARS-CoV-2 (COVID-19) RNA ELANA+probe Ql (Unsp spec) Positive [facility] Healthcare No Panel Informationon 12-18 FLU A Negative [facility] FLU B Negative [facility] Interpretation and review of laboratory results Abnormal [facility] Ambulatory Visit Summaryon 0 11-27-2024 Ambulatory Visit Summary Ambulatory Visit Summary CASI BRAMBILA :1990 Visit Date:11/27/2024 Ambulatory Visit Instructions Your Diagnosis Recurrent UTI Your Care Team Attending Physician - CASI LOPEZ PA-C Primary Care Physician - CASI RUGGIERO MD. This Is Your Medications List atorvastatin (atorvastatin 10 mg Tab) benztropine (benztropine 1 mg Tab) cholecalciferol (Vitamin D3) levothyroxine (levothyroxine 50 mcg (0.05 mg) Tab) metformin (metformin 500 mg ER Tab) ondansetron (ondansetron 4 mg Tab) propranolol (propranolol 80 mg Cap-ER) venlafaxine (Effexor XR 150 mg Cap-ER) venlafaxine (venlafaxine 75 mg Cap-ER) Procedures Performed Cystoscopy (02/12/2022), Tonsillectomy. Discharge Vitals Temperature (Temporal Artery) 37 ???C Heart Rate (Peripheral) 75 Respiratory Rate 18 Blood Pressure 134/88 Height 158 cm Height 62 in Weight 101.9 kg Weight 224.651 lb BMI 40.82 Medications What How Much When Instructions Unchanged atorvastatin (atorvastatin 10 mg Tab) 1 Tablets Unchanged benztropine (benztropine 1 mg Tab) Unchanged cholecalciferol (Vitamin D3) Unchanged levothyroxine (levothyroxine 50 mcg (0.05 mg) Tab) 1 Tablets Unchanged metformin (metformin 500 mg ER Tab) By Mouth Every day Unchanged ondansetron (ondansetron 4 mg Tab) Unchanged propranolol (propranolol 80 mg Cap-ER) 1 Capsules Unchanged venlafaxine (Effexor XR 150 mg Cap-ER) By Mouth Every day Unchanged venlafaxine (venlafaxine 75 mg Cap-ER) 1 Capsules Allergies Abilify (Adverse reaction) Paxil (Suicidal thoughts) Problems Ongoing - Any problem that you are currently receiving treatment for. Anxiety Asthma Asymptomatic microscopic hematuria BMI 40.0-44.9, adult Depression Heart murmur Kidney stones Migraine Nocturia Pain in the abdomen Recurrent UTI Stress incontinence Patient Survey You may receive a survey via text or e-mail asking about your office visit. Please share your experience with us by completing your survey. We appreciate your feedback and thank you for choosing us for your care. Normal [facility] Provider Letteron 11-27-2024 Provider Letter Provider Letter November 27, 2024 CASI SALGUEROANDRES [address] [place] [id number] : 1990 To Whom It May Concern, Please excuse above patient from work. Date of Appointment: From: 11/27/2024 To: _ May Return to Work On:11/27/2024 Restrictions: none Comments: Any questions, please call our office Sincerely, [facility] [address] [place] [address] [facility] Urology Office/Clinic Noteon 11-27-2024 Urology Office/Clinic Note Urology Office/Clinic Note Chief Complaint 18 month f/u HPI Staff 34yr old female here for 18mo f/u with KUB. S/p cysto 02/12/22. Previous Dx: kidney stones, asymptomatic microscopic hematuria, stress incontinence, nocturia, recurrent uti Dysuria: denies Incomplete bladder emptying: denies Hematuria: denies Frequency: every 3-4 hours Urgency: can comfortably delay 30-60 minutes Nocturia: denies Stream: good steady Leaking: states that if she has to hold it too long sometimes she may leak but usually no leaking if she can go right away Post void dripping: denies Wearing pads/ Depends: denies Urge incontinence: denies Stress incontinence: only w full bladder then cough/sneeze Incontinence without Sensory Awareness: denies Abdominal pain: denies Flank pain: denies Sexual complaints: denies Review of Systems PHQ Score Initial Depression Screen Score: 0 SCORE no fever, chills, malaise, myalgia. no rash/lesions. no abdominal pain, nausea, vomiting. Physical Exam Vitals & Measurements T: 37 ???C(Temporal Artery) HR: 75(Peripheral) RR: 18 BP: 134/88 HT: 62 in HT: 158 cm WT: 101.9 kg WT: 224.651 lb BMI: 40.82 nontoxic Assessment/Plan 1. Kidney stones (N20.0: Calculus of kidney) CT 03/13/24 - punctate LUP stones. KUB 11/23/24 - no stones visible. Pt denies gross hematuria, flank pain, stone passage. Continues stone prevention diet. Offered scheduled f/u & imaging for monitoring. Pt prefers PRN. 2. Recurrent UTI (N39.0: Urinary tract infection, site not specified) 0-1 in the past year. UA completed in office today shows no signs of infection. Ordered: Urnls Dip Stick Auto w/o Microscopy POC [id number] 3. Asymptomatic microscopic hematuria (R31.21: Asymptomatic microscopic hematuria) Neg cysto 02/12/22. UA completed in office today shows no microhematuria. 4. Stress incontinence (N39.3: Stress incontinence (female) (male)) Rare. Not bothersome enough to warrant tx per pt. Follow-up With When Contact Information [facility] Additional Instructions: Only if needed/new problems arise. No scheduled appointment indicated at this time. Patient Education Kidney Stones, [id number] Problem List/Past Medical History Ongoing Anxiety Asthma Asymptomatic microscopic hematuria BMI 40.0-44.9, adult Depression Heart murmur Kidney stones Migraine Recurrent UTI Stress incontinence Historical No qualifying data Procedure/Surgical History Cystoscopy (02/12/2022), Tonsillectomy. Medications atorvastatin 10 mg Tab, 10 mg= 1 tab(s) benztropine 1 mg Tab Effexor XR 150 mg Cap-ER, Oral, Daily levothyroxine 50 mcg (0.05 mg) Tab, 50 mcg= 1 tab(s) metformin 500 mg ER Tab, Oral, Daily ondansetron 4 mg Tab propranolol 80 mg Cap-ER, 80 mg= 1 cap(s) venlafaxine 75 mg Cap-ER, 75 mg= 1 cap(s) Vitamin D3 Allergies Abilify (Adverse reaction) Paxil (Suicidal thoughts) Social History Alcohol Current. Beer. 3-5 times per week., 11/27/2024 Substance Abuse Never., 11/27/2024 Tobacco Never (less than 100 in lifetime) Tobacco Use:. Household tobacco concerns: No., 11/27/2024 Family History Arthritis: Mother and Father. Diabetes: [...] Recorded SARS-CoV-2 (COVID-19) mRNA-1273 vaccine 2020 Recorded pt has had 3 shots to date influenza virus vaccine, inactivated 08/26/2020 Recorded influenza virus vaccine, inactivated 09/11/2019 Recorded Lab Results Ambulatory Point of Care Results Bilirubin Urine Dipstick: Negative (11/27/24 09:52:00) Blood Urine Dipstick: Negative (11/27/24 09:52:00) Glucose Urine Dipstick: Negative (11/27/24 09:52:00) Ketones Urine Dipstick: Negative (11/27/24 09:52:00) Leukocytes Urine Dipstick: Negative (11/27/24 09:52:00) Nitrite Urine Dipstick: Negative (11/27/24 09:52:00) Protein Urine Dipstick: Negative (11/27/24 09:52:00) Specific [place] Urine Dipstick: 1.025 (11/27/24 09:52:00) Urine Appearance Urine Dipstick: Clear (11/27/24 09:52:00) Urine Color Urine Dipstick: Yellow (11/27/24 09:52:00) Urobilinogen Urine Dipstick: Normal 0.2-1 EU/dl (11/27/24 09:52:00) pH Urine Dipstick: 5.5 (11/27/24 09:52:00) Normal [facility] Comment on above: Result Comment: Elec tronically Signed By: CASI LOPEZ PA-C.miguel a\Date and Time Signed: 11/27/24 13:14 EST XR ABDOMEN 1 VIEWon 11-23-19 25 XR ABDOMEN 1 VIEW TITLE OF EXAM: XR ABDOMEN 1 VIEW REASON FOR EXAM: Two year kidney stone follow up, no current complaints. TECHNIQUE: 3 radiographs of the abdomen COMPARISONS: CT abdomen/pelvis 03/13/2024 FINDINGS: No appreciable/radiopaque urolithiasis, though evaluation is somewhat hindered by overlying colonic stool. A couple of punctate left superior pole calculi were visualized on the comparison CT of February 2024. Additional calculi projecting at the left upper quadrant on comparison studies are splenic granulomata, not nephrolithiasis. Physiologic quantity and distribution of bowel gas and colonic stool. No acute osseous or focal soft tissue abnormality. IMPRESSION: No radiographically appreciable urolithiasis. DICTATED ON: 11/23/2024 8:03 AM This report has been electronically signed and approved by the interpreting radiologist. Normal Not Available Urinalysis macro (dipstick) panel (U)on 10-30-2024 Bilirubin, UA Negative Negative - 4(70) +++ mg/dL [facility] Blood, UA Positive Negative - 50 Cody/mcL [facility] Clarity, UA Clear [facility] re Color, UA Yellow [facility] Glucose, UA Negative Negative - 1999(110) ++++ mg/dL [facility] Interpretation and review of laboratory results Abnormal [facility] Ketones, UA Negative Negative - 160(16) ++++ mg/dL [facility] Leukocytes, UA Negative Negative - 500+++ Francisco/mcL [facility] Nitrite, UA Negative Negative - Positive [facility] pH, UA 6 5 - 9 [facility] Protein, UA Positive Negative - 1999(20) ++++ mg/dL [facility] Spec Grav, UA 1.01 1 - 1.03 [facility] Urobilinogen, UA 0.2 0.2 - 12 mg/[facility] Abdomen limitedon 10-12- 024 TITLE OF EXAM: US LI PHOEBE REASON FOR EXAM: Elevated liver enzymes TECHNIQUE: Grayscale, color, and spectral Doppler ultrasound evaluation of the abdomen. COMPARISON: CT abdomen/pelvis 03/13/2024 FINDINGS: Measurements: Hepatic length 15.3 cm Common bile duct diameter 0.35 cm Gallbladder Wall diameter 0.2 cm Right kidney length 11.8 cm Pancreas: The pancreas is suboptimally visualized in the tail. There is no significant abnormality in the evaluable portion. The main pancreatic duct is not dilated. Liver: Normal size. Diffuse hyperechogenicity. Normal hepatic shape and echotexture. No definite focal hepatic lesion. Hepatopedal flow of the main portal vein. Bile ducts: The intrahepatic bile ducts are not dilated. The common bile duct is not dilated. Gallbladder: No cholelithiasis. No pericholecystic fluid or sonographic Jones sign. Right Kidney: The parenchymal echogenicity and thickness are normal. No focal lesion is demonstrated. No hydronephrosis. No ascites. IMPRESSION: Hepatic steatosis. DICTATED ON: 10/12/2024 1:58 PM This report has been electronically signed in approved by the interpreting radiologist. IMAGING Kade Layton MD - 10/12/2024 TITLE OF EXAM: US LIVER REASON FOR EXAM: Elevated liver enzymes TECHNIQUE: Grayscale, color, and spectral Doppler ultrasound evaluation of the abdomen. COMPARISON: CT abdomen/pelvis 03/13/2024 FINDINGS: Measurements: Hepatic length 15.3 cm Common bile duct diameter 0.35 cm Gallbladder Wall diameter 0.2 cm Right kidney length 11.8 cm Pancreas: The pancreas is suboptimally visualized in the tail. There is no significant abnormality in the evaluable portion. The main pancreatic duct is not dilated. Liver: Normal size. Diffuse hyperechogenicity. Normal hepatic shape and echotexture. No definite focal hepatic lesion. Hepatopedal flow of the main portal vein. Bile ducts: The intrahepatic bile ducts are not dilated. The common bile duct is not dilated. Gallbladder: No cholelithiasis. No pericholecystic fluid or sonographic Jones sign. Right Kidney: The parenchymal echogenicity and thickness are normal. No focal lesion is demonstrated. No hydronephrosis. No ascites. IMPRESSION: Hepatic steatosis. DICTATED ON: 10/12/2024 1:58 PM This report has been electronically signed in approved by the interpreting radiologist. [facility] Radiology Study observation (narrative) [facility] US Abdomen limitedOrdered By : Kade Layton on 10-12-2024 [facility]: US LIVERon 10-12-2024 US LIVER TITLE OF EXAM: US MARLO PHOEBE REASON FOR EXAM: Elevated liver enzymes TECHNIQUE: Grayscale, color, and spectral Doppler ultrasound evaluation of the abdomen. COMPARISON: CT abdomen/pelvis 03/13/2024 FINDINGS: Measurements: Hepatic length 15.3 cm Common bile duct diameter 0.35 cm Gallbladder Wall diameter 0.2 cm Right kidney length 11.8 cm Pancreas: The pancreas is suboptimally visualized in the tail. There is no significant abnormality in the evaluable portion. The main pancreatic duct is not dilated. Liver: Normal size. Diffuse hyperechogenicity. Normal hepatic shape and echotexture. No definite focal hepatic lesion. Hepatopedal flow of the main portal vein. Bile ducts: The intrahepatic bile ducts are not dilated. The common bile duct is not dilated. Gallbladder: No cholelithiasis. No pericholecystic fluid or sonographic Jones sign. Right Kidney: The parenchymal echogenicity and thickness are normal. No focal lesion is demonstrated. No hydronephrosis. No ascites. IMPRESSION: Hepatic steatosis. DICTATED ON: 10/12/2024 1:58 PM This report has been electronically signed in approved by the interpreting radiologist. Normal Not Available ANAon 10-09-2024 Nuclear Ab IF Ql (S) Negative NEGATIVE [facility] Comment on above: KAL IFA is a first l ine screen for detecting the presence of up to approximately 150 autoantibodies in various autoimmune diseases. A negative KAL IFA result suggests an KAL-associated autoimmune disease is not present at this time, but is not definitive. If there is high clinical suspicion for Sjogren's syndrome, testing for anti-SS-A/Ro antibody should be considered. Anti-Brisa-1 antibody should be considered for clinically suspected inflammatory myopathies. AC-0: Negative International Consensus on KAL Patterns (https://doi.org/10.1515/yqhc-0390-9915) For additional information, please refer to http://education.NewLeaf Symbiotics/faq/GSN790 (This link is being provided for informational/ educational purposes only.) Ceruloplasminon 10-09-2024 Ceruloplasmin [Mass/Vol] 35 mg/dL 14 - 48 mg/dL [facility] Cytomegalovirus antibody, Ig Mon 10-09-2024 CMV IgM IA Qn <30.00 AU/mL [facility] Comment on above: AU/mL Interpretation ----- <30.00 No Antibody Detected 30.00-34.99 Equivocal > or = 35.00 Antibody Detected Results from any one IgM assay should not be used as a sole determinant of a current or recent infection. Because an IgM test can yield false positive results and low level IgM antibody may persist for more than 12 months post infection, reliance on a single test result could be misleading. Acute infection is best diagnosed by demonstrating the conversion of IgG from negative to positive. If an acute infection is suspected, consider obtaining a new specimen and submit for both IgG and IgM testing in two or more weeks. Linda-Guevara virus VCA, IgMo n 10-09-2024 EBV capsid IgM IA Qn (S) <36.00 U/mL [facility] Comment on above: U/mL Interpretation ---- <36.00 Negative 36.00-43.99 Equivocal >43.99 Positive Ferritinon 10-09-2024 Ferritin [Mass/Vol] 109 ng/mL 16 - 154 ng/mL [facility] Hepatitis 1996 panel (S)on 12-09-2023 HAV IgM IA Ql Non-Reactive NON-REACTIVE [facility] Comment on above: For additional information, please refer to http://EpiEP.PropertyGuru/faq/SKP069 (This link is being provided for informational/ educational purposes only.) HBV core IgM IA Ql Non-Reactive NON-REACTIVE [facility] Comment on above: For additional information, please refer to http://EpiEP.PropertyGuru/faq/KTS835 (This link is being provided for informational/ educational purposes only.) HBV surface Ag IA Ql Non-Reactive NON-REACTIVE [facility] Comment on above: For additional information, please refer to http://EpiEP.PropertyGuru/faq/PMY568 (This link is being provided for informational/ educational purposes only.) HCV Ab IA Ql Non-Reactive NON-REACTIVE [facility] Comment on above: HCV antibody was non-reactive. There is no laboratory evidence of HCV infection. In most cases, no further action is required. However, if recent HCV exposure is suspected, a test for HCV RNA (test code 92323) is suggested. For additional information please refer to http://education.PropertyGuru/faq/CZF84w1 (This link is being provided for informational/ educational purposes only.) No Panel Informationon 10-09 Performing Organizat ion Information Site ID: QPT Name: [facility] Address: [address] [place] [address], [address] [place] [phone] Director: Sotero Patel [facility] - Chemistry and C hemistry - challengeon 10-03-2024 ALT [Catalytic activity/Vol] 92 U/L High 6 - 29 U/L [facility] AST [Catalytic activity/Vol] 117 U/L High 10 - 30 U/L [facility] TSH Qn 2.42 m[IU]/L mIU/L [facility] Comment on above: Reference Range > or = 20 Years 0.40-4.50 Ranges First trimester 0.26-2.66 Second trimester 0.55-2.73 Third trimester 0.43-2.91 Laboratory - Hematology and Cell countson 10-03-2024 HbA1c (Bld) [Mass fraction] 5.6 % [facility] Comment on above: For the purpose of s creening for the presence of diabetes: <5.7% Consistent with the absence of diabetes 5.7-6.4% Consistent with increased risk for diabetes (prediabetes) > or =6.5% Consistent with diabetes This assay result is consistent with a decreased risk of diabetes. Currently, no consensus exists regarding use of hemoglobin A1c for diagnosis of diabetes in children. According to [place] Diabetes Association (ADA) guidelines, hemoglobin A1c <7.0% represents optimal control in non- diabetic patients. Different metrics may apply to specific patient populations. Standards of Medical Care in Diabetes(ADA). Lipid 1995 panelon 4 Cholesterol [Mass/Vol] 262 mg/dL High NINF - 200 mg/dL [facility] Cholesterol in HDL [Mass/Vol] 41 mg/dL Low > OR = 50 [facility] Cholesterol in LDL [Mass/Vol] 169 mg/dL High mg/dL (calc) [facility] Comment on above: Reference range: <10 0 Desirable range <100 mg/dL for primary prevention; <70 mg/dL for patients with CHD or diabetic patients with > or = 2 CHD risk factors. LDL-C is now calculated using the Feliberto calculation, which is a validated novel method providing better accuracy than the Friedewald equation in the estimation of LDL-C. Moreno SS et al. ABIGAIL. 2013;310(19): 9973-9697 (http://education.NewLeaf Symbiotics/faq/AGY516) Cholesterol non HDL [Mass/Vol] 221 mg/dL High [facility] Comment on above: Non-HDL level > or = 220 is very high and may indicate genetic familial hypercholesterolemia (FH). Clinical assessment and measurement of blood lipid levels should be considered for all first-degree relatives of patients with an FH diagnosis. For patients with diabetes plus 1 major ASCVD risk factor, treating to a non-HDL-C goal of <100 mg/dL (LDL-C of <70 mg/dL) is considered a therapeutic option. Cholesterol.total/Ch olesterol in HDL [Mass ratio] 6.4 {ratio} High [facility] Triglyceride [Mass/Vol] 307 mg/dL High [facility] - 150 mg/dL [facility] Comment on above: If a non-fasting specimen was collected, consider repeat triglyceride testing on a fasting specimen if clinically indicated. aNkul et al. J. of Clin. Lipidol. 2015;9:129-169. No Panel Informationon 10-03 Interpretation and review of laboratory results Abnormal [facility] Performing Organizat ion Information Site ID: QPT Name: [facility] Address: [address] [place] [address], [address] [place] [phone] Director: Sotero Patel [facility] - Chemistry and C hemistry - challengeon 07-25-2024 ALT [Catalytic activity/Vol] 50 U/L High 6 - 29 U/L [facility] AST [Catalytic activity/Vol] 58 U/L High 10 - 30 U/L [facility] Free T4 [Mass/Vol] 0.9 ng/dL 0.8 - 1.8 ng/dL [facility] TSH Qn 5.45 m[IU]/L High mIU/L [facility] Comment on above: Reference Range > or = 20 Years 0.40-4.50 Ranges First trimester 0.26-2.66 Second trimester 0.55-2.73 Third trimester 0.43-2.91 Lipid 1996 panelon 4 Cholesterol [Mass/Vol] 236 mg/dL High [facility] - 200 mg/dL [facility] Cholesterol in HDL [Mass/Vol] 49 mg/dL Low > OR = 50 [facility] Cholesterol in LDL [Mass/Vol] 148 mg/dL High mg/dL (calc) [facility] Comment on above: Reference range: <10 0 Desirable range <100 mg/dL for primary prevention; <70 mg/dL for patients with CHD or diabetic patients with > or = 2 CHD risk factors. LDL-C is now calculated using the Feliberto calculation, which is a validated novel method providing better accuracy than the Friedewald equation in the estimation of LDL-C. Moreno SS et al. ABIGAIL. 2013;310(19): 6534-7107 (http://education.NewLeaf Symbiotics/faq/GEV621) Cholesterol non HDL [Mass/Vol] 187 mg/dL High [facility] Comment on above: For patients with di abetes plus 1 major ASCVD risk factor, treating to a non-HDL-C goal of <100 mg/dL (LDL-C of <70 mg/dL) is considered a therapeutic option. Cholesterol.total/Ch olesterol in HDL [Mass ratio] 4.8 {ratio} [facility] Triglyceride [Mass/Vol] 240 mg/dL [facility] mg/dL [facility] Comment on above: If a non-fasting specimen was collected, consider repeat triglyceride testing on a fasting specimen if clinically indicated. Nakul et al. J. of Clin. Lipidol. 2015;9:129-169. No Panel Informationon 07-25 Interpretation and review of laboratory results Abnormal [facility] Performing Organizat ion Information Site ID: QPT Name: [facility] Address: [address] [place] [address], [address] [place] [phone] Director: Sotero Patel [facility] LUMBAR SPINE 4+ VIEWS WIT H FLEXION EXTENSIONon 03-12-2024 XR LUMBAR SPINE 4+ VIEWS WITH FLEXION EXTENSION FINDINGS: Comparison made with prior examination of June 28, 2023. No scoliosis. Mild disc space loss thoracolumbar region. Sclerosis involves posterior elements of the mid and distal lumbar spine however, no spondylolysis or spondylolisthesis is seen. SI joints. No acute fracture is identified. New 1.0 x 1.8 cm aggregate calcification right paravertebral region (L1-2 level), indeterminate etiology, possible right intrarenal stone and/or gallstone. Stable left mid sacral 1.0 cm sclerotic focus. Flexion and extension: Normal alignment, no instability. IMPRESSION: 1. Minimal arthritis, normal alignment, no instability. 2 Right upper quadrant calcification possible gallstone and/or intrarenal stone. CT imaging maybe of assistance as clinically indicated. TRANSCRIBED BY: ELECTRONICALLY SIGNED BY: Abraham Pena MD Normal Not Available XR ABDOMEN 1 VIEWon 03-07-20 24 XR ABDOMEN 1 VIEW FINDINGS: Several millimeter calcifications overlie both renal shadows and left upper quadrant. No ureteral or bladder stones. Small to moderate volume of ascending colon stool, hepatic flexure air obscures the right renal shadows. IMPRESSION: 1. Obscured renal shadows. As clinically indicated CT imaging maybe of assistance. 2. Left upper quadrant calcifications, likely splenic unlikely renal etiologies. TRANSCRIBED BY: ELECTRONICALLY SIGNED BY: Abraham Pena MD Normal Not Available US PELVISon 02-10-2024 US PELVIS Exam: US PELVIS History: Pelvic pain. Technique: Sonography of the pelvis performed by transabdominal technique Comparison: CT 02/12/2023. Result: Uterus: Orientation: Anteverted. Size: 8.1 x 3.4 x 4.2 cm. Myometrium: Homogeneous echotexture. Endometrial Echo complex: 0.5 cm. Right ovary: Size: 4.1 x 3.3 x 3.4 cm Complex cyst or solid mass: None. 1.8 cm anechoic benign cyst/follicle. Left ovary: Size: 2.9 x 1.4 x 2.1 cm Complex cyst or solid mass: None. Free Fluid:None. IMPRESSION: Impression: Unremarkable ultrasound of the female pelvis. ELECTRONICALLY SIGNED BY: Avelino Noyola MD Normal Not Available [facility] 04-08-2022 Albumin [Mass/Vol] 4.6 g/dL Normal 3.6-5.1 [facility] Comment on above: Performed By: #### T SH reflex FT4, LIPD, CMP #### [facility] [address], [place] [id number] Albumin/Globulin [Mass ratio] 1.6 {ratio} Normal 1.0-2.5 [facility] Comment on above: Performed By: #### T SH reflex FT4, LIPD, CMP #### [facility] [address], [place] [id number] ALP [Catalytic activity/Vol] 101 U/L Normal 35-119 [facility] Comment on above: Performed By: #### T SH reflex FT4, LIPD, CMP #### [facility] [address], [place] [id number] ALT [Catalytic activity/Vol] 23 U/L Normal 6-33 [facility] Comment on above: Result Comment: 10/21 Female reference range changed. Performed By: #### T SH reflex FT4, LIPD, CMP #### [facility] [address], [place] [id number] Anion gap [Moles/Vol] 21 mmol/L High 12-20 [facility] Comment on above: Result Comment: Effe ctive 11/26/2019 reference range changed. Performed By: #### T SH reflex FT4, LIPD, CMP #### [facility] [address], [place] [id number] AST [Catalytic activity/Vol] 32 U/L Normal 9-34 [facility] Comment on above: Performed By: #### T SH reflex FT4, LIPD, CMP #### [facility] [address], [place] [id number] Bilirubin [Mass/Vol] 0.51 mg/dL Normal 0.30-1.20 [facility] Comment on above: Performed By: #### T SH reflex FT4, LIPD, CMP #### [facility] [address], [place] [id number] BUN/CREA 23 Ratio High 6-22 [facility] Comment on above: Performed By: #### T SH reflex FT4, LIPD, CMP #### [facility] [address] [facility] [place] [id number] Calcium [Mass/Vol] 9.5 mg/dL Normal 8.6-10.2 [facility] [employer] Comment on above: Performed By: #### T SH reflex FT4, LIPD, CMP #### [facility] [address], [place] [id number] Chloride [Moles/Vol] 102 mmol/L Normal 98-107 [facility] Comment on above: Performed By: #### T SH reflex FT4, LIPD, CMP #### [facility] [address] [facility] [place] [id number] CO2 [Moles/Vol] 21 mmol/L Normal 20-31 [facility] Comment on above: Performed By: #### T SH reflex FT4, LIPD, CMP #### [facility] [address], [place] [id number] Creatinine [Mass/Vol] 0.6 mg/dL Normal 0.6-1.4 [facility] Comment on above: Performed By: #### T SH reflex FT4, LIPD, CMP #### [facility] [address], [place] [id number] eGFRAA 144 mL/min/1.73m2 Normal >60 [facility] Comment on above: Performed By: #### T SH reflex FT4, LIPD, CMP #### [facility] [address], [place] [id number] eGFRNAA 119 mL/min/1.73m2 Normal >60 [facility] Comment on above: Performed By: #### T SH reflex FT4, LIPD, CMP #### [facility] [address], [place] [id number] Globulin (S) [Mass/Vol] 2.9 g/dL Normal 1.9-3.7 [facility] Comment on above: Performed By: #### T SH reflex FT4, LIPD, CMP #### [facility] [address] [facility] [place] [id number] Glucose [Mass/Vol] 79 mg/dL Normal 65-99 [facility] [employer] Comment on above: Result Comment: For FASTING Glucose --- ADA reference ranges: Normal 65-99 mg/dl Prediabetes 100-125 Diabetes >/= 126 Performed By: #### T SH reflex FT4, LIPD, CMP #### [facility] [address], [place] [id number] Potassium [Moles/Vol] 4.3 mmol/L Normal 3.5-5.5 [facility] [employer] Comment on above: Performed By: #### T SH reflex FT4, LIPD, CMP #### [facility] [address], [place] [id number] Protein [Mass/Vol] 7.5 g/dL Normal 6.1-8.1 Jourdan [place]ney [place] [employer] Comment on above: Performed By: #### T SH reflex FT4, LIPD, CMP #### [facility] [address], [place] [id number] Sodium [Moles/Vol] 139 mmol/L Normal 135-146 Jourdan courtney [place] [employer] Comment on above: Performed By: #### T SH reflex FT4, LIPD, CMP #### [facility] [address], [place] [id number] Urea nitrogen [Mass/Vol] 14 mg/dL Normal 7-25 [facility] [employer] Comment on above: Performed By: #### T SH reflex FT4, LIPD, CMP #### [facility] [address], [place] [id number] Lipid Panelon 04-08-2022 Cholesterol [Mass/Vol] 259 mg/dL High 125-200 [facility] [employer] Comment on above: Result Comment: Low risk < 200mg/dL Borderline risk 201-239 mg/dl High risk > or equal to 240 Performed By: #### T SH reflex FT4, LIPD, CMP #### [facility] [address], [place] [id number] Cholesterol in HDL [Mass/Vol] 37 mg/dL Low >40 [facility] [employer] Comment on above: Result Comment: High Cardiovascular Risk HDL <40 mg/dL Low Cardiovascular Risk HDL > or equal to 60 mg/dl Performed By: #### T SH reflex FT4, LIPD, CMP #### [facility] [address], [place] [id number] Cholesterol in LDL [Mass/Vol] 164 mg/dL Normal [facility] Comment on above: Result Comment: LDL ATP III CLASSIFICATION LDL less than 100 mg/dl Optimal LDL 100-129 mg/dl Near or above optimal LDL 130-159 Borderline high LDL 160-189 High LDL greater than 189 mg/dl Very High Performed By: #### T SH reflex FT4, LIPD, CMP #### [facility] [address], [place] [id number] Cholesterol in VLDL [Mass/Vol] 58 mg/dL Normal [facility] Comment on above: Performed By: #### T SH reflex FT4, LIPD, CMP #### [facility] [address], [place] [id number] Cholesterol.total/Ch olesterol in HDL [Mass ratio] 7 {ratio} Normal [facility] Comment on above: Performed By: #### T SH reflex FT4, LIPD, CMP #### [facility] [address], [place] [id number] Triglyceride [Mass/Vol] 292 mg/dL High 30-150 [facility] Comment on above: Result Comment: TRIG ATPIII CLASSIFICATIONS TRIG less than 150 mg/dl Normal TRIG 150-199 mg/dl Borderline High TRIG 200-500 mg/dl High TRIG greather than 500 mg/dl Very High Performed By: #### T SH reflex FT4, LIPD, CMP #### [facility] [address], [place] [id number] TSH w/ Reflex to Free T4on 0 04-08-2022 TSH 3.120 uIU/mL Normal 0.400-4.500 [facility] [employer] Comment on above: Performed By: #### T SH reflex FT4, LIPD, CMP #### [facility] [address], [place] [id number] A1C HEMOGLOBINon 02-24-2022 HbA1c (Bld) [Mass fraction] 5.7 % [employer] Other HbA1c (Bld) [Mass fraction]o n 02-24-2022 A1C HEMOGLOBIN [facility] [employer] Other XR Sacrum/Coccyxon 2 XR Sacrum/Coccyx FINDINGS: Comparison made with prior [...] by Abraham Pena on 01/06/2022 1018 Normal [facility] Q - CULTURE,URINE,ROUTINEon 12-17-2021 CULTURE, URINE, ROUTINE SEE NOTE Normal [facility] Comment on above: Order Comment: [facility] performed at: [facility], [address] [facility] [facility], [address] [place] [address], [phone], String Cutter: Sotero Patel MD [facility] Collection Date/Time: [facility] Results Received Date/Time: [facility] Reported Date/Time: Result Comment: CULT URE, URINE, ROUTINE Micro Number: [id number] Test Status: Final Specimen Source: Urine Specimen Quality: Adequate Result: No Growth Performed By: #### 8 [id number], [id number] #### [facility] [address] [place] [address] Q - URINALYSIS WITH REFLEX T O MICROSCOPICon 12-17-2021 Appearance (U) CLEAR Normal CLEAR [facility] [employer] Comment on above: Order Comment: [facility] performed at: [facility], [address] [place] , [address] [place] [address], [phone], String Cutter: Sotero Patel MD [facility] Date/Time: [facility] Results Received Date/Time: [facility] Reported Date/Time: Performed By: #### 8 [id number], [id number] #### [facility] [address] [place] [address] Bilirubin Ql (U) Negative Normal NEGATIVE [facility] [employer] Operator Comment on above: Order Comment: [facility] performed at: [employer], [facility], [address] [facility], [address] [place] [address], [address] [place] [address], String Cutter: Sotero Patel MD [facility] Date/Time: [facility] Results Received Date/Time: [facility] Reported Date/Time: Performed By: #### 8 [id number], [id number] #### [facility] [address] [place] [address] Color (U) YELLOW Normal YELLOW [facility] [employer] Up Operator Comment on above: Order Comment: [facility] performed at: [employer], [facility], [address] [facility], [address] [place] [address], [address] [place] [address], String Cutter: Sotero Patel MD [facility] Date/Time: [facility] Results Received Date/Time: [facility] Reported Date/Time: Performed By: #### 8 [id number], [id number] #### [facility] [address] [place] [address] Glucose Ql (U) Negative Normal NEGATIVE [facility] [employer] Up Operator Comment on above: Order Comment: [facility] performed at: [employer], [facility], [address] [facility], [address] [place] [address], [address] [place] [address], String Cutter: Sotero Patel MD [facility] Date/Time: [facility] Results Received Date/Time: [facility] Reported Date/Time: Performed By: #### 8 [id number], [id number] #### [facility] [address] [place] [address] Ketones Ql (U) Negative Normal NEGATIVE [facility] [employer] Up Operator Comment on above: Order Comment: [facility] performed at: [employer], [facility], [address] [facility], [address] [place] [address], [phone], String Cutter: Sotero Patel MD [facility] Date/Time: [facility] Results Received Date/Time: [facility] Reported Date/Time: Performed By: #### 8 [id number], [id number] #### [facility] [address] [place] [address] Leukocyte esterase Test strip Ql (U) Negative Normal NEGATIVE [facility] [employer] Up Operator Comment on above: Order Comment: [facility] performed at: [facility], [facility], [address] [place] [address], [address] [place] [address], [address] [place] [address], String Cutter: Sotero Patel MD [facility] Date/Time: [facility] Results Received Date/Time: [facility] Reported Date/Time: Performed By: #### 8 [id number], [id number] #### [facility] [address] [place] [address] Nitrite Ql (U) Negative Normal NEGATIVE [facility] Specialist Comment on above: Order Comment: [facility] performed at: [facility], [facility], [address] [place] [address], [address] [place] [address], [address] [place] [address], String Cutter: Sotero Patel MD [facility] Date/Time: [facility] Results Received Date/Time: [facility] Reported Date/Time: Performed By: #### 8 [id number], [id number] #### [facility] [address] [place] [address] OCCULT BLOOD Negative Normal NEGATIVE [facility] [employer] Set Up Operator Comment on above: Order Comment: [facility] performed at: [facility], [facility], [address] [place] [address], [address] [place] [address], [address] [place] [address], String Cutter: Sotero Patel MD [facility] Date/Time: [facility] Results Received Date/Time: [facility] Reported Date/Time: Performed By: #### 8 [id number], [id number] #### [facility] [address] [place] [address] pH (U) 6.0 [pH] Normal 5.0-8.0 [facility] [employer] Up Operator Comment on above: Order Comment: [facility] performed at: [employer], [facility], [address] [facility], [address] [place] [address], [address] [place] [address], String Cutter: Sotero Patel MD [facility] Date/Time: [facility] Results Received Date/Time: [facility] Reported Date/Time: Performed By: #### 8 [id number], [id number] #### [facility] [address] [place] [address] Protein Ql (U) Negative Normal NEGATIVE [facility] [employer] Set Up Operator Comment on above: Order Comment: [facility] performed at: [employer], [facility], [address] [place] [address], [address] [place] [address], [address] [place] [address], String Cutter: Sotero Patel MD [facility] Date/Time: [facility] Results Received Date/Time: [facility] Reported Date/Time: Performed By: #### 8 [id number], [id number] #### [facility] [address] [place] [address] Specific gravity (U) [Rel density] 1.023 Normal 1.001-1.035 [facility] [employer] Up Operator Comment on above: Order Comment: [facility] performed at: [facility], [address] [facility], [address] [place] [address], [address] [place] [address], String Cutter: Sotero Patel MD [facility] Date/Time: [facility] Results Received Date/Time: [facility] Reported Date/Time: Performed By: #### 8 [id number], [id number] #### [facility] [address] [place] [address] Vital Signs Date Time Vital Sign Value Performing Clinician Facility 03-06-2025 13:54-0400 Body mass index (BMI) [Ratio] 40.36 kg/m2 [employer] Work Phone: [facility] 03-06-2025 13:54-0400 Body weight 101.72 kg [employer] Work Phone: [facility] 03-06-2025 13:54-0400 Diastolic blood pressure 86 mm[Hg] Adi Belkys DO Work Phone: [facility] 03-06-2025 13:54-0400 Systolic blood pressure 120 mm[Hg] Adi Belkys DO Work Phone: [facility] 01-18-2025 10:50-0500 Body height 158.8 cm Casi Ruggiero MD Work Phone: [facility] 01-18-2025 10:50-0500 Body mass index (BMI) [Ratio] 39.78 kg/m2 Casi Ruggiero MD Work Phone: [facility] 01-18-2025 10:50-0500 Body weight 100.25 kg Casi Ruggiero MD Work Phone: [facility] 01-18-2025 10:50-0500 Diastolic blood pressure 68 mm[Hg] Casi Ruggiero MD Work Phone: [facility] 01-18-2025 10:50-0500 Heart rate 82 /min Casi Ruggiero MD Work Phone: [facility] 01-18-2025 10:50-0500 SaO2% (BldA) [Mass fraction] 96 % Cais Ruggiero MD Work Phone: [facility] 01-18-2025 10:50-0500 Systolic blood pressure 108 mm[Hg] Casi Ruggiero MD Work Phone: [facility] 01-15-2025 09:00-0500 Body height 158.8 cm Casi Ruggiero MD Work Phone: [facility] 01-15-2025 09:00-0500 Body mass index (BMI) [Ratio] 40.14 kg/m2 Csai Ruggiero MD Work Phone: [facility] 01-15-2025 09:00-0500 Body weight 101.15 kg Casi Ruggiero MD Work Phone: [facility] 01-15-2025 09:00-0500 Diastolic blood pressure 66 mm[Hg] Casi Ruggiero MD Work Phone: [facility] 01-15-2025 09:00-0500 Heart rate 84 /min Casi Ruggiero MD Work Phone: [facility] 01-15-2025 09:00-0500 SaO2% (BldA) [Mass fraction] 97 % Casi Ruggiero MD Work Phone: [facility] 01-15-2025 09:00-0500 Systolic blood pressure 112 mm[Hg] Casi Ruggiero MD Work Phone: [facility] 12-18-2024 08:02-0500 Body mass index (BMI) [Ratio] 41.08 kg/m2 Mat [place] [employer] Work Phone: [facility] 12-18-2024 08:02-0500 Body temperature 97.5 [degF] Mat [place] [employer] Work Phone: [facility] 12-18-2024 08:02-0500 Body weight 101.88 kg Mat Hack[place] [employer] Work Phone: [facility] 12-18-2024 08:02-0500 Diastolic blood pressure 72 mm[Hg] Mat Hack[place] [employer] Work Phone: [facility] 12-18-2024 08:02-0500 Heart rate 93 /min Mat [place] [employer] Work Phone: [facility] 12-18-2024 08:02-0500 SaO2% (BldA) [Mass fraction] 97 % Mat Hack[place] [employer] Work Phone: [facility] 12-18-2024 08:02-0500 Systolic blood pressure 118 mm[Hg] Mat [place] [employer] Work Phone: [facility] 11-27-2024 09:44-0500 Body temperature 98.6 [degF] CASI LOPEZ [facility] 11-27-2024 09:44-0500 Diastolic blood pressure 88 mm[Hg] CASI LAMBERTRY [facility] 11-27-2024 09:44-0500 Heart rate 75 /min CASI LOPEZ [facility] 11-27-2024 09:44-0500 Respiratory rate 18 /min CASI LOPEZ [facility] 11-27-2024 09:44-0500 Systolic blood pressure 134 mm[Hg] CASI JOHN [facility] 11-19-2024 14:44-0500 Body height 157.5 cm Mat Foy [employer] Work Phone: [facility] 11-19-2024 14:44-0500 Body mass index (BMI) [Ratio] 39.87 kg/m2 Mat [place] [employer] Work Phone: [facility] 11-19-2024 14:44-0500 Body weight 98.88 kg Mat Shenterence [employer] Work Phone: [facility] 11-19-2024 14:44-0500 Diastolic blood pressure 72 mm[Hg] Mat Foy [employer] Work Phone: [facility] 11-19-2024 14:44-0500 Heart rate 106 /min Mat Jose [place] [employer] Work Phone: [facility] 11-19-2024 14:44-0500 SaO2% (BldA) [Mass fraction] 98 % Mat Vel[place] [employer] Work Phone: [facility] 11-19-2024 14:44-0500 Systolic blood pressure 130 mm[Hg] Mat [place] [employer] Work Phone: [facility] 11-08-2024 15:35-0500 Body height 157.5 cm Casi Ruggiero MD Work Phone: [facility] 11-08-2024 15:35-0500 Body mass index (BMI) [Ratio] 39.47 kg/m2 Casi Ruggiero MD Work Phone: [facility] 11-08-2024 15:35-0500 Body temperature 99.61 [degF] Casi Ruggiero MD Work Phone: [facility] 11-08-2024 15:35-0500 Body weight 97.89 kg Casi Ruggiero MD Work Phone: [facility] 11-08-2024 15:35-0500 Diastolic blood pressure 62 mm[Hg] Casi Ruggiero MD Work Phone: [facility] 11-08-2024 15:35-0500 Heart rate 72 /min Casi Ruggiero MD Work Phone: [facility] 11-08-2024 15:35-0500 SaO2% (BldA) [Mass fraction] 98 % Casi Ruggiero MD Work Phone: [facility] 11-08-2024 15:35-0500 Systolic blood pressure 106 mm[Hg] Casi Ruggiero MD Work Phone: [facility] 11-06-2024 15:36-0500 Body height 157.5 cm Casi Ruggiero MD Work Phone: [facility] 11-06-2024 15:36-0500 Body mass index (BMI) [Ratio] 39.76 kg/m2 Casi Ruggiero MD Work Phone: [facility] 11-06-2024 15:36-0500 Body weight 98.61 kg Casi Ruggiero MD Work Phone: [facility] 11-06-2024 15:36-0500 Diastolic blood pressure 82 mm[Hg] Casi Ruggiero MD Work Phone: [facility] 11-06-2024 15:36-0500 Heart rate 90 /min Casi Ruggiero MD Work Phone: [facility] 11-06-2024 15:36-0500 SaO2% (BldA) [Mass fraction] 99 % Casi Ruggiero MD Work Phone: [facility] 11-06-2024 15:36-0500 Systolic blood pressure 118 mm[Hg] Casi Ruggiero MD Work Phone: [facility] 10-30-2024 08:58-0500 Body mass index (BMI) [Ratio] 39.51 kg/m2 Amt [place] [employer] Work Phone: [facility] 10-30-2024 08:58-0500 Body weight 97.98 kg Mat [place] [employer] Work Phone: [facility] 10-30-2024 08:58-0500 Diastolic blood pressure 82 mm[Hg] Mat [place] [employer] Work Phone: [facility] 10-30-2024 08:58-0500 Heart rate 98 /min Mat Hack[place] [employer] Work Phone: [facility] 10-30-2024 08:58-0500 SaO2% (BldA) [Mass fraction] 98 % Mat Hackenburg [employer] Work Phone: [facility] 10-30-2024 08:58-0500 Systolic blood pressure 124 mm[Hg] Mat Hack[place] [employer] Work Phone: [facility] 10-02-2024 14:31-0500 Body mass index (BMI) [Ratio] 38.67 kg/m2 Mat Hack[place] [employer] Work Phone: [facility] 10-02-2024 14:31-0500 Body weight 95.89 kg Mat Hack[place] [employer] Work Phone: [facility] 10-02-2024 14:31-0500 Diastolic blood pressure 76 mm[Hg] Mat Hack[place] [employer] Work Phone: [facility] 10-02-2024 14:31-0500 Heart rate 88 /min Mat Foy [employer] Work Phone: [facility] 10-02-2024 14:31-0500 SaO2% (BldA) [Mass fraction] 97 % Mat Foy [employer] Work Phone: [facility] 10-02-2024 14:31-0500 Systolic blood pressure 116 mm[Hg] Mat Foy [employer] Work Phone: [facility] 09-07-2024 10:48-0400 Body height 157.5 cm Na Durantrick [employer] Work Phone: [facility] 09-07-2024 10:48-0400 Body mass index (BMI) [Ratio] 38.67 kg/m2 Na Cacerespatrick [employer] Work Phone: [facility] 09-07-2024 10:48-0400 Body temperature 96.91 [degF] Na Cacerespatrick [employer] Work Phone: [facility] 09-07-2024 10:48-0400 Body weight 95.89 kg Na Cacerespatrick [employer] Work Phone: [facility] 09-07-2024 10:48-0400 Diastolic blood pressure 84 mm[Hg] Na Blairzpatrick [employer] Work Phone: [facility] 09-07-2024 10:48-0400 Heart rate 100 /min Na Cacerespatrick [employer] Work Phone: [facility] 09-07-2024 10:48-0400 SaO2% (BldA) [Mass fraction] 99 % Na Barrios [employer] Work Phone: [facility] 09-07-2024 10:48-0400 Systolic blood pressure 126 mm[Hg] Na Barrios [employer] Work Phone: [facility] 07-24-2024 14:02-0400 Body height 157.5 cm Casi Ruggiero MD Work Phone: [facility] 07-24-2024 14:02-0400 Body mass index (BMI) [Ratio] 38.19 kg/m2 Casi Ruggiero MD Work Phone: [facility] 07-24-2024 14:02-0400 Body weight 94.71 kg Casi Ruggiero MD Work Phone: [facility] 07-24-2024 14:02-0400 Diastolic blood pressure 78 mm[Hg] Casi Ruggiero MD Work Phone: [facility] 07-24-2024 14:02-0400 Heart rate 105 /min Casi Ruggiero MD Work Phone: [facility] 07-24-2024 14:02-0400 SaO2% (BldA) [Mass fraction] 96 % Casi Ruggiero MD Work Phone: [facility] 07-24-2024 14:02-0400 Systolic blood pressure 126 mm[Hg] Casi Ruggiero MD Work Phone: [facility] 03-16-2023 13:46-0400 Blood Pressure Location CASI LOPEZ [facility] 03-16-2023 13:46-0400 Diastolic blood pressure 68 mm[Hg] CASI LOPEZ [facility] 03-16-2023 13:46-0400 Heart rate 70 /min CASI LOPEZ [facility] 03-16-2023 13:46-0400 Respiratory rate 16 /min CASI LOPEZ [facility] 03-16-2023 13:46-0400 Systolic blood pressure 120 mm[Hg] CASI LOPEZ [facility] 05-12-2022 15:20-0400 Blood Pressure Location Agus OLSON [facility] 05-12-2022 15:20-0400 Diastolic blood pressure 88 mm[Hg] Agus OLSON [facility] 05-12-2022 15:20-0400 Heart rate 85 /min Agus OLSON [facility] 05-12-2022 15:20-0400 Systolic blood pressure 122 mm[Hg] Agus OLSON [facility] 02-24-2022 15:00-0400 Body height 157.48 cm Roberto Rao Other [employer] Other 02-24-2022 15:00-0400 Body mass index (BMI) [Ratio] 42.14 kg/m2 Roberto Rao Other [employer] Other 02-24-2022 15:00-0400 Body weight 104.51 kg Roberto Rao Other [employer] Other 02-24-2022 15:00-0400 Diastolic blood pressure 86 mm[Hg] Roberto Rao Other [employer] Other 02-24-2022 15:00-0400 Respiratory rate 18 /min Roberto Rao Other [employer] Other 02-24-2022 15:00-0400 SaO2% (BldA) [Mass fraction] 98 % Roberto Rao Other [employer] Other 02-24-2022 15:00-0400 Systolic blood pressure 115 mm[Hg] Roberto Rao Other [employer] Other Encounters Encounter Date Encounter Type Care Provider Facility Start: 03-06-2025 End: 03-06-2025 [employer] Adi Belkys DO Work Phone: [facility] Start: 03-06-2025 End: 03-06-2025 Bamboo flowsheet Adi Belkys DO Work Phone: [facility] Start: 03-06-2025 End: 03-06-2025 Patient encounter procedure Adi Belkys DO Work Phone: [facility] Start: 03-06-2025 End: 03-06-2025 Periodic preventive med est patient 18-39 yrs Adi Belkys DO Work Phone: [facility] Comment on above: Well woman exam with routine gynecological exam Start: 03-03-2025 End: 03-03-2025 Orders Only Casi Ruggiero MD Work Phone: [facility] Comment on above: Type 2 diabetes norma itus without complication, without long- term current use of insulin (Primary Dx); Snoring Start: 02-25-2025 End: 02-25-2025 Refill Casi Ruggiero MD Work Phone: [facility] Comment on above: Acquired hypothyroid ism (CMS/HCC) Start: 02-05-2025 End: 02-05-2025 ambulatory MOY ALT Not Available Start: 01-18-2025 End: 01-18-2025 Office outpatient visit 15 minutes Casi Ruggiero MD Work Phone: [facility] Comment on above: Sacroiliac joint dys function (Primary Dx); Type 2 diabetes mellitus without complication, without long-term current use of insulin (CMS/HCC) Start: 01-15-2025 End: 01-15-2025 Bamboo flowsheet Casi Ruggiero MD Work Phone: [facility] Start: 01-15-2025 End: 01-15-2025 Bamboo flowsheet Casi Ruggiero MD Work Phone: [facility] Start: 01-15-2025 End: 01-15-2025 Office outpatient visit 25 minutes Casi Ruggiero MD Work Phone: [facility] Comment on above: Type 2 diabetes norma itus without complication, without long- term current use of insulin (CMS/HCC) (Primary Dx); Mixed hyperlipidemia (CMS/HCC); Acquired hypothyroidism (CMS/HCC) Start: 01-15-2025 End: 01-15-2025 Orders Only Valeria Ivory [employer] Work Phone: [facility] Comment on above: Type 2 diabetes norma itus without complication, without long- term current use of insulin (CMS/HCC) Start: 01-09-2025 ambulatory Tam Grewal F acility:[facility] Start: 01-04-2025 End: 01-04-2025 ambulatory MAT FOY Not Available Start: 01-04-2025 End: 01-04-2025 Patient encounter procedure [facility] Nurse [facility] Comment on above: Prediabetes (Primary Dx); PCOS (polycystic ovarian syndrome) Start: 12-18-2024 End: 12-18-2024 Bamboo flowsheet Mat A Danii [employer] Work Phone: [facility] Start: 12-18-2024 End: 12-18-2024 Bamboo flowsheet Mat A Danii [employer] Work Phone: [facility] Start: 12-18-2024 End: 12-18-2024 Office outpatient visit 15 minutes Mat Foy [employer] Work Phone: [facility] Comment on above: Fever, unspecified f ever cause (Primary Dx); COVID-19 Start: 12-18-2024 End: 12-18-2024 ambulatory MAT FOY Not Available Start: 11-27-2024 End: 11-27-2024 ambulatory CASI LOPEZ Facility:[facility] Start: 11-27-2024 End: 11-27-2024 Patient encounter procedure CASI LOPEZ [facility] Start: 11-23-2024 End: 11-23-2024 ambulatory CASI LOPEZ Not Available Start: 11-19-2024 End: 11-19-2024 Office outpatient visit 25 minutes Mat Foy [employer] Work Phone: [facility] Comment on above: Spasm of cervical pa raspinous muscle (Primary Dx); Acute intractable headache, unspecified headache type; Poor posture; Morbid (severe) obesity due to excess calories (CMS/HCC); Mixed hyperlipidemia (CMS/HCC); Body mass index (BMI) 39.0-39.9, adult; Bipolar II disorder (CMS/HCC) Start: 11-19-2024 End: 11-19-2024 ambulatory MAT Arnaud FOY Not Available Start: 11-19-2024 End: 11-19-2024 Bamboo flowsheet Mat A Hackenburg [employer] Work Phone: [facility] Start: 11-19-2024 End: 11-19-2024 Bamboo flowsheet Mat A Hackenburg [employer] Work Phone: [facility] Start: 11-12-2024 End: 11-12-2024 Telephone encounter Casi Ruggiero MD Work Phone: [facility] Comment on above: Acute right otitis m edia (Primary Dx) Start: 11-08-2024 End: 11-08-2024 Office outpatient visit 25 minutes Casi Ruggiero MD Work Phone: [facility] Comment on above: Spasm of cervical pa raspinous muscle (Primary Dx) Start: 11-06-2024 End: 11-06-2024 Office outpatient visit 25 minutes Casi Ruggiero MD Work Phone: [facility] Comment on above: Mixed hyperlipidemia (CMS/HCC) (Primary Dx); Nonintractable headache, unspecified chronicity pattern, unspecified headache type; Tachycardia Start: 10-30-2024 End: 10-30-2024 Office outpatient visit 25 minutes Mat Foy S[employer] C[employer] Work Phone: [facility] Comment on above: Epigastric pain (Judy yvette Dx); Morbid (severe) obesity due to excess calories (CMS/HCC); Metabolic syndrome Start: 10-30-2024 End: 10-30-2024 ambulatory MAT A YAAKOVENBURG Not Available Start: 10-23-2024 End: 10-23-2024 ambulatory MAT HARICHARDENBURG Not Available Start: 10-15-2024 End: 10-15-2024 Orders Only Mat Foy S[employer] Work Phone: [facility] Comment on above: Elevated liver enzym es (Primary Dx); Fatty liver Start: 10-12-2024 End: 10-12-2024 ambulatory VALERIA IVORY Not Available Start: 10-05-2024 End: 10-05-2024 Orders Only Valeria Ivory [employer] Work Phone: [facility] Comment on above: Elevated liver enzym es (Primary Dx); Polyneuropathy Start: 10-02-2024 End: 10-02-2024 Office outpatient visit 25 minutes Mat A Yaakovengarrett [employer] Work Phone: [facility] Comment on above: Encounter for immuni zation (Primary Dx); Mixed hyperlipidemia (CMS/HCC); Body mass index (BMI) 40.0-44.9, adult (CMS/HCC); Acquired hypothyroidism (CMS/HCC); Metabolic syndrome; Prediabetes Start: 10-02-2024 End: 10-02-2024 ambulatory MAT A YAAKOVENBURG Not Available Start: 09-13-2024 End: 09-13-2024 Orders Only Na Barrios S[employer] Work Phone: [facility] Comment on above: Vaginal yeast infect ion (Primary Dx) Start: 09-07-2024 End: 09-07-2024 Bamboo flowsheet Na Barrios S[employer] Work Phone: [facility] Start: 09-07-2024 End: 09-07-2024 Bamboo flowsheet Na Paredesk S[employer] C[employer]TER Work Phone: [facility] Start: 09-07-2024 End: 09-07-2024 Office outpatient visit 15 minutes Na Barrios S[employer] Work Phone: [facility] Comment on above: Acute non-recurrent pansinusitis (Primary Dx) Start: 09-07-2024 End: 09-07-2024 ambulatory NA BARRIOS Not Available Start: 07-27-2024 End: 07-27-2024 Orders Only Casi Ruggiero MD Work Phone: [facility] Comment on above: Acquired hypothyroid ism (CMS/HCC) (Primary Dx); Elevated liver enzymes Start: 07-26-2024 End: 07-26-2024 Telephone encounter Casi Ruggiero MD Work Phone: [facility] Start: 07-24-2024 End: 07-24-2024 Bamboo flowsheet Casi Ruggiero MD Work Phone: [facility] Start: 07-24-2024 End: 07-24-2024 Bamboo flowsheet Casi Ruggiero MD Work Phone: [facility] Start: 07-24-2024 End: 07-24-2024 Office outpatient visit 25 minutes Casi Ruggiero MD Work Phone: [facility] Comment on above: PCOS (polycystic ova malina syndrome) (Primary Dx); Mixed hyperlipidemia (CMS/HCC); Acquired hypothyroidism (CMS/HCC) Start: 07-24-2024 End: 07-24-2024 ambulatory CASI RUGGIERO Not Available Start: 05-28-2024 End: 05-28-2024 ambulatory RUPALI SHAH Not Available Start: 05-22-2024 End: 05-22-2024 ambulatory CASINIDIA LOPEZ Facility:[facility] Start: 05-22-2024 End: 05-22-2024 Patient encounter procedure CASI LOPEZ [facility] Start: 03-30-2024 End: 03-30-2024 ambulatory CASI RUGGIERO Not Available Start: 03-21-2024 End: 03-21-2024 ambulatory CANDELARIA SOLORZANO Not Available Start: 03-13-2024 End: 03-13-2024 ambulatory MAT FOY Not Available Start: 03-12-2024 End: 03-12-2024 ambulatory VALERIA IVORY Not Available Start: 03-07-2024 End: 03-07-2024 ambulatory CASI JOHN Not Available Start: 02-22-2024 End: 02-22-2024 ambulatory CANDELARIA JEANINE Not Available Start: 02-15-2024 End: 02-15-2024 ambulatory VALERIA IVORY Not Available Start: 02-10-2024 End: 02-10-2024 ambulatory ADI RIZVI Not Available Start: 01-03-2024 Orders Only Matdonis snow S[employer] Work Phone: [facility] Comment on above: Migraine without aur a and without status migrainosus, not intractable (CMS/[facility]) Start: 03-16-2023 End: 03-16-2023 Patient encounter procedure CASI LOPEZ [facility] Start: 11-10-2022 End: 11-10-[address] ADI RIZVI Facility: Start: 06-07-2022 End: 06-07-2022 ambulatory Paras Degroot Other [employer] Other Start: 06-07-2022 Telephone encounter Paras Zane [facility] Start: 05-19-2022 End: 05-19-2022 ambulatory Paras Zane Other [employer] Other Start: 05-19-2022 Telephone encounter Paras Zane [facility] Start: 05-12-2022 End: 05-12-2022 Patient encounter procedure Agus OLSON [facility] [place] Start: 05-03-2022 End: 05-03-2022 ambulatory Paras Zane Other [employer] Other Start: 05-03-2022 Telephone encounter Paras Zane [facility] Start: 04-28-2022 End: 04-28-2022 ambulatory Paras Zane Other [employer] Other Start: 04-28-2022 Telephone encounter Paras Zane [facility] Start: 04-12-2022 End: 04-12-2022 ambulatory Mouna Fitt Other [employer] Other Start: 04-12-2022 Telephone encounter Mouna Blairt [facility] Start: 04-08-2022 End: 04-08-2022 ambulatory Paras Zane Other [employer] Other Start: 04-08-2022 Telephone encounter Paras Zane [facility] Start: 04-07-2022 End: 04-07-2022 ambulatory Paras Zane Other [employer] Other Start: 04-07-2022 Telephone encounter Paras Zane [facility] Start: 03-29-2022 End: 03-29-2022 ambulatory Paras Zane Other [employer] Other Start: 03-29-2022 Telephone encounter Paras Zane [facility] Start: 03-26-2022 End: 03-26-2022 ambulatory Paras Zane Other [employer] Other Start: 03-26-2022 Telephone encounter Paras Zane [facility] Start: 03-08-2022 End: 03-08-2022 ambulatory Paras Zane Other [employer] Other Start: 03-08-2022 Telephone encounter Paras Zane [facility] Start: 02-24-2022 End: 02-24-2022 ambulatory Roberto Rao Other [employer] Other Start: 02-24-2022 Nutrition therapy Roberto Rao [facility] Start: 02-24-2022 Telephone encounter Paras Zane [facility] Start: 02-22-2022 End: 02-22-2022 ambulatory Paras Zane Other [employer] Other Start: 02-22-2022 Telephone encounter Apras Zane [facility] Start: 01-15-2022 End: 01-15-2022 ambulatory Paras Zane Other [employer] Other Start: 01-15-2022 Telephone encounter Paras Zane [facility] Start: 12-21-2021 End: 12-21-2021 ambulatory Paras Zane Other [employer] Other Start: 12-21-2021 Telephone encounter Paras Zane [facility] Start: 12-17-2021 End: 12-17-2021 ambulatory Paras Zane Other [employer] Other Start: 12-17-2021 Telephone encounter Paras Zane [facility] Start: 12-15-2021 End: 12-15-2021 ambulatory Paras Zane Other [employer] Other Start: 12-15-2021 Telephone encounter Paras Zane [facility] Start: 12-09-2021 End: 12-09-2021 ambulatory Paras Zane Other [employer] Other Start: 12-09-2021 Telephone encounter Paras Zane [facility] Start: 12-07-2021 End: 12-07-2021 ambulatory Paras Zane Other [employer] Other Start: 12-07-2021 Telephone encounter Paras Zane [facility] Start: 11-23-2021 End: 11-23-2021 ambulatory Paras Zane Other [employer] Other Start: 11-23-2021 Telephone encounter Paras Zane [facility] Start: 11-17-2021 End: 11-17-2021 ambulatory Odette Brenner Other [employer] Other Start: 11-17-2021 Telephone encounter Odette Jordin [facility] Start: 11-12-2021 End: 11-12-2021 ambulatory Paras Zane Other [employer] Other Start: 11-12-2021 Telephone encounter Paras Zane [facility] Start: 11-06-2021 End: 11-06-2021 ambulatory Paras Zane Other [employer] Other Start: 11-06-2021 Telephone encounter Paras Zane [facility] Start: 10-07-2021 End: 10-07-2021 ambulatory Paras Zane Other [employer] Other Start: 10-07-[facility] Start: 10-05-2021 End: 10-05-[facility] [employer] Other Start: 10-05-2021 Telephone encounter [facility] Procedures Date Procedure Procedure Detail Performing Clinician Start: 03-06-2025 Urine test visual color cmprsn meths Adi Belkys DO Work Phone: Start: 01-04-2025 Hemoglobin glycosylated a1c Casi Ruggiero MD Work Phone: Start: 12-18-2024 STATUS COVID-19/FLU Pat riccarl Lares Danii [employer] Work Phone: Start: 10-30-2024 Urnls dip stick/tabl et rgnt non-auto w/o micrscp Mat A Yaakovenburg [employer] Work Phone: Start: 10-05-2024 Antinuclear antibodies kal Valeria Codyhollinidia [employer] Work Phone: Start: 10-05-2024 Assay of ferritin Valeria Ivory [employer] Work Phone: Start: 10-02-2024 Hemoglobin glycosylated a1c Mat A Jose Alfredoburg [employer] Work Phone: Start: 10-02-2024 Lipid panel Mat A Yaakovenburg [employer] Work Phone: Start: 10-02-2024 TSH W/REFLEX TO FT4 Pat ricia A Hackenburg [employer] Work Phone: Start: 07-24-2024 Assay of free thyroxine Casi Ruggiero MD Work Phone: Start: 07-24-2024 Lipid panel Casi gomez MD Work Phone: Start: 01-25-2024 Microscopic observat ion [Identifier] in Cervix by Cyto stain Casi Ruggiero MD Work Phone: Start: 02-12-2022 Cystoscopy Agus CÁRDENAS Tonsillectomy Agus OLSON Plan of Treatment Date Care Activity Detail Author Start: 01-24-2029 Screening for malign ant neoplasm of cervix [facility] Start: 01-24-2027 Screening for malign ant neoplasm of cervix [facility] Start: 03-13-2026 End: 03-13-2026 Patient encounter procedure 03/13/2026 11:00 AM EDT Office Visit [facility] [address] [place] [phone] Adi Rizvi DO [address] [place] [address] [facility] Start: 01-15-2026 Urine screening for protein Diabetes: Urine Protein Screening [facility] Start: 06-13-2025 End: 06-13-2025 Patient encounter procedure 06/13/2025 11:05 AM EDT Office Visit [facility] [address] [place] [address] Rupali Shah, [employer] T[employer]ER OPERATOR [address] [place] [address] [facility] Start: 05-28-2025 End: 05-28-2025 Patient encounter procedure 05/28/2025 8:30 AM EDT Office Visit [facility] [address] [place] [address] Rupali Shah, [employer]MIXING TUMBLER OPERATOR [address] [place] [address] [facility] Start: 04-11-2025 End: 04-11-2025 Patient encounter procedure 04/11/2025 9:30 AM EDT Office Visit [facility] [address] [place] [address] Casi Ruggiero MD [address] [place], [place] [id number] [facility] Start: 04-09-2025 End: 04-09-2025 Patient encounter procedure 04/09/2025 9:00 AM EDT Office Visit [facility] [address] [facility] [place] [phone] Casi Ruggiero MD [address] [facility] [place] [address] [facility] Start: 04-03-2025 Hemoglobin A1c measurement Caity betes: Hemoglobin A1C [facility] Start: 03-08-2025 End: 03-08-2025 Clinical Support 03/08/2025 8:00 AM EDT Clinical Support [facility] [address] [facility] [place] [address] Moy Lugo RN [facility] Start: 03-06-2025 End: 03-06-2025 Patient encounter procedure [facility] Comment on above: Arrived Start: 03-03-2025 End: 03-03-2026 Home sleep test Home sleep test Sleep Center Routine Snoring Expected: 03/03/2025 (Approximate), Expires: 03/03/2026 [facility] Work Phone: Comment on above: Expected: 03/03/2025 (Approximate), Expires: 03/03/2026 Start: 01-22-2025 End: 01-15-2026 Basic metabolic 1998 panel - Serum or Plasma Basic metabolic panel Lab Routine Type 2 diabetes mellitus without complication, without long-term current use of insulin (CMS/HCC) Expected: 01/22/2025 (Approximate), Expires: 01/15/2026 [facility] Work Phone: Comment on above: Expected: 01/22/2025 (Approximate), Expires: 01/15/2026 Start: 01-15-2025 End: 01-15-2026 Comprehensive metabolic 2000 panel - Serum or Plasma Comprehensive metabolic panel Lab Routine Type 2 diabetes mellitus without complication, without long-term current use of insulin (CMS/HCC) Mixed hyperlipidemia (CMS/HCC) Expected: 01/15/2025 (Approximate), Expires: 01/15/2026 [facility] Comment on above: Expected: 01/15/2025 (Approximate), Expires: 01/15/2026 Start: 01-15-2025 End: 01-15-2026 Lipid 1996 panel - Serum or Plasma Lipid panel Lab Routine Type 2 diabetes mellitus without complication, without long-term current use of insulin (CMS/HCC) Mixed hyperlipidemia (CMS/HCC) Expected: 01/15/2025 (Approximate), Expires: 01/15/2026 [facility] Comment on above: Expected: 01/15/2025 (Approximate), Expires: 01/15/2026 Start: 01-15-2025 End: 01-15-2026 TSH W/REFLEX TO FT4 TSH W/REFLEX TO FT4 Lab Routine Acquired hypothyroidism (CMS/HCC) Expected: 01/15/2025 (Approximate), Expires: 01/15/2026 [facility] Comment on above: Expected: 01/15/2025 (Approximate), Expires: 01/15/2026 Start: 01-15-2025 End: 01-15-2025 Patient encounter procedure [facility] Comment on above: Arrived Start: 12-18-2024 End: 12-18-2024 Patient encounter procedure 12/18/2024 8:00 AM EST Office Visit [facility] [address] [place] [facility] [place] [phone] Mat Foy NP [address] [place] [address] Arrived [facility] Comment on above: Arrived Start: 11-19-2024 End: 11-19-2024 Patient encounter procedure 11/19/2024 3:00 PM EST Office Visit [facility] [address] [place] [phone] Mat Foy [employer] [address] [place] [address] Arrived [facility] Comment on above: Arrived Start: 11-06-2024 End: 11-06-2025 Alanine aminotransferase [Enzymatic activity/volume] in Serum or Plasma ALT Lab Routine Mixed hyperlipidemia (CMS/HCC) Expected: 11/06/2024 (Approximate), Expires: 11/06/2025 [facility] Comment on above: Expected: 11/06/2024 (Approximate), Expires: 11/06/2025 Start: 11-06-2024 End: 11-06-2025 Aspartate aminotransferase [Enzymatic activity/volume] in Serum or Plasma AST Lab Routine Mixed hyperlipidemia (CMS/HCC) Expected: 11/06/2024 (Approximate), Expires: 11/06/2025 [facility] Work Phone: Comment on above: Expected: 11/06/2024 (Approximate), Expires: 11/06/2025 Start: 10-30-2024 End: 10-30-2025 Amylase [Enzymatic activity/volume] in Serum or Plasma Amylase Lab Routine Epigastric pain Expected: 10/30/2024 (Approximate), Expires: 10/30/2025 [facility] Work Phone: Comment on above: Expected: 10/30/2024 (Approximate), Expires: 10/30/2025 Start: 10-30-2024 End: 10-30-2025 CBC W Auto Differential panel - Blood CBC and differential Lab Routine Epigastric pain Expected: 10/30/2024 (Approximate), Expires: 10/30/2025 [facility] Comment on above: Expected: 10/30/2024 (Approximate), Expires: 10/30/2025 Start: 10-30-2024 End: 10-30-2025 Comprehensive metabolic 2000 panel - Serum or Plasma Comprehensive metabolic panel Lab Routine Epigastric pain Expected: 10/30/2024 (Approximate), Expires: 10/30/2025 [facility] Comment on above: Expected: 10/30/2024 (Approximate), Expires: 10/30/2025 Start: 10-30-2024 End: 10-30-2025 Lipase [Enzymatic activity/volume] in Serum or Plasma Lipase Lab Routine Epigastric pain Expected: 10/30/2024 (Approximate), Expires: 10/30/2025 [facility] Comment on above: Expected: 10/30/2024 (Approximate), Expires: 10/30/2025 Start: 10-12-2024 End: 10-12-2024 Professional / ancillary services management 10/12/2024 8:15 AM EST Ancillary Procedure [facility] [address] [address] [facility] [phone] [facility] Start: 09-07-2024 End: 09-07-2024 Patient encounter procedure 09/07/2024 11:00 AM EDT Office Visit [facility] [address] [place] [phone] Na Barrios NP [address] [place], [place] [id number] Arrived [facility] Comment on above: Arrived Start: 07-27-2024 End: 07-27-2025 Alanine aminotransferase [Enzymatic activity/volume] in Serum or Plasma ALT Lab Routine Elevated liver enzymes Expected: 07/27/2024 (Approximate), Expires: 07/27/2025 [facility] Healthcare Comment on above: Expected: 07/27/2024 (Approximate), Expires: 07/27/2025 Start: 07-27-2024 End: 07-27-2025 Aspartate aminotransferase [Enzymatic activity/volume] in Serum or Plasma AST Lab Routine Elevated liver enzymes Expected: 07/27/2024 (Approximate), Expires: 07/27/2025 [facility] Work Phone: Comment on above: Expected: 07/27/2024 (Approximate), Expires: 07/27/2025 Start: 07-24-2024 End: 07-24-2024 Patient encounter procedure 07/24/2024 2:00 PM EDT Office Visit [facility] [address] [place] [address] Casi Ruggiero MD [address] [place], [place] [id number] Arrived [facility] Comment on above: Arrived Start: 07-22-2024 Influenza vaccination Influenza Vacc ine (#1) [facility] Start: 05-28-2024 End: 05-28-2024 Patient encounter procedure 05/28/2024 8:30 AM EDT Office Visit [facility] [address] [place] [phone] Alyssa Rupali Arnaud [employer] OPERATOR [address] [place] [address] [facility] Start: 01-25-2024 End: 01-25-2024 Patient encounter procedure 01/25/2024 1:00 PM EST Office Visit [facility] OB [address] [place] [address] Adi Rizvi, [address] [place] [address] [facility] OB Start: 01-12-2024 End: 01-12-2024 Patient encounter procedure 01/12/2024 8:00 AM EST Office Visit [facility] FM [address] [place] [phone] Mat Foy NP [address] [place] [address] [facility] FM Start: 2021 Screening for malign ant neoplasm of cervix [facility] Start: 2012 Screening for malign ant neoplasm of cervix Pap Smear [facility] Start: 2010 Urine screening for protein Diabetes: Urine Protein Screening [facility] Start: 2001 Glaucoma screening Diabetes: R etinopathy Screening [facility] Cytology Cervical or vaginal smear or scraping study Pap Smear Pathology and Cytology Routine Well woman exam with routine gynecological exam Ordered: 03/06/2025 [facility] Work Phone: Comment on above: Ordered: 03/06/2025 Human papilloma viru s DNA [Presence] in Unspecified specimen by Probe with amplification HPV DNA probe, amplified Microbiology Routine Well woman exam with routine gynecological exam Ordered: 03/06/2025 [facility] Comment on above: Ordered: 03/06/2025 Immunizations Immunization Date Immunization Notes Care Provider Veronika larsen 10-02-2024 influenza, seasonal, injectable, preservative free Mat Hackenburg [employer] Work Phone: [facility] 09-30-2023 influenza, injectabl e, quadrivalent, preservative free Mat Hackenburg [employer] Work Phone: [facility] Work Phone: 09-30-2023 influenza virus vaccine, unspecified formulation Casi Ruggiero MD Work Phone: [facility] 09-08-2022 influenza virus vaccine, unspecified formulation CASI LOPEZ [facility] 09-08-2022 influenza, injectabl e, quadrivalent, preservative free Mat Hackenburg [employer] Work Phone: [facility] 10-14-2021 SARS-CoV-2 (COVID-19 ) mRNA-[id number] vaccine CASI LOPEZ [facility] 09-25-2021 influenza virus vaccine, unspecified formulation CASI LOPEZ [facility] 09-25-2021 influenza, injectabl e, quadrivalent, preservative free Mat Hackenburg [employer] Work Phone: [facility] 09-21-2021 influenza virus vaccine, unspecified formulation Agus OLSON [facility] 09-21-2021 SARS-CoV-2 (COVID-19 ) mRNA-1273 vaccine Agus Maestro [facility] 12-22-2020 SARS-CoV-2 (COVID-19 ) mRNA-1273 vaccine Agus OLSON [facility] [place] 11-24-2020 SARS-CoV-2 (COVID-19 ) mRNA-1273 vaccine CASI LOPEZ [facility] 11-21-2020 SARS-CoV-2 (COVID-19 ) mRNA-1273 vaccine Agus OLSON [facility] Comment on above: Result Comment: pt h as had 3 shots to date 08-26-2020 influenza virus vaccine, unspecified formulation CASI LOPEZ [facility] 08-26-2020 influenza, injectabl e, quadrivalent, preservative free Mat Hackenburg [employer] Work Phone: [facility] 09-11-2019 influenza virus vaccine, unspecified formulation CASI LOPEZ [facility] 09-11-2019 influenza, injectabl e, quadrivalent, preservative free Mat Hackenburg [employer] Work Phone: [facility] 05-15-2003 hepatitis B vaccine, pediatric or pediatric/adolescent dosage Mat Hackenburg [employer] Work Phone: [facility] 05-15-2003 tetanus toxoid, adsorbed Mat Hackenburg [employer] Work Phone: [facility] 04-30-1996 diphtheria, tetanus toxoids and acellular pertussis vaccine, unspecified formulation Mat Hackenburg [employer] Work Phone: [facility] 04-30-1996 measles, mumps and rubella virus vaccine Mat Hackenburg [employer] Work Phone: [facility] 04-30-1996 poliovirus vaccine, unspecified formulation Mat Hackenburg [employer] Work Phone: [facility] 12-15-1992 diphtheria, tetanus toxoids and acellular pertussis vaccine, unspecified formulation Mat Hackenburg [employer] Work Phone: [facility] 12-15-1992 poliovirus vaccine, unspecified formulation Mat Hackenburg [employer] Work Phone: [facility] 07-14-1992 haemophilus influenz ae type b vaccine, conjugate unspecified formulation Mat Hackenburg [employer] Work Phone: [facility] 07-14-1992 measles, mumps and rubella virus vaccine Mat Hackenburg [employer] Work Phone: [facility] 1991 diphtheria, tetanus toxoids and acellular pertussis vaccine, unspecified formulation Mat Hackenburg [employer] Work Phone: [facility] 1991 diphtheria, tetanus toxoids and acellular pertussis vaccine, unspecified formulation Mat Hackenburg [employer] Work Phone: [facility] 1991 haemophilus influenz ae type b vaccine, conjugate unspecified formulation Mat Hackenburg [employer] Work Phone: [facility] 1991 poliovirus vaccine, unspecified formulation Mat Hackenburg [employer] Work Phone: [facility] 1991 diphtheria, tetanus toxoids and acellular pertussis vaccine, unspecified formulation Mat Hackenburg [employer] Work Phone: [facility] 1991 haemophilus influenz ae type b vaccine, conjugate unspecified formulation Mat Hackenburg [employer] Work Phone: [facility] 1991 poliovirus vaccine, unspecified formulation Mat Hackenburg [employer] Work Phone: [facility] Payers Date Payer Category Payer Unknown [id number] 2024 [facility] [id number] 2024 Unknown [id number] 2023 Private Health Insurance [id number] 2023 Self-pay [id number] 2022 Private Health Insurance [id number] [address] [employer] [id number] 2022-Present [address] [place] [address] [id number] 2022 Unknown [id number] 2022 Unknown [id number] 1991 Unknown [id number] 2.16.840.1.432640.3.579.2.5 93 1991 Unknown [id number] 2.16.840.1.855145.3.579.2.7 27 1991 Unknown [id number] 2.16.840.1.592908.3.579.2.7 27 1991 Unknown [id number] 2.16.840.1.007798.3.579.2.1 259 1991 Unknown [id number] 2.16.840.1.957279.3.579.2.1 259 1991 Unknown [id number] 2.16.840.1.466418.3.579.2.1 259 1991 Unknown [id number] 2.16.840.1.530986.3.579.2.1 259 1991 Unknown [id number] 2.16.840.1.444731.3.579.2.1 259 1991 Unknown [id number] 2.16.840.1.734847.3.579.2.1 259 1991 Unknown [id number] 2.16.840.1.374326.3.579.2.1 259 1991 Unknown [id number] 2.16.840.1.826051.3.579.2.1 259 1991 Unknown [id number] 2.16.840.1.463515.3.579.2.1 259 1991 Unknown [id number] 2.16.840.1.264526.3.579.2.1 259 1991 Unknown [id number] 2.16.840.1.522519.3.579.2.1 259 1991 Unknown [id number] 2.16.840.1.726361.3.579.2.1 259 1991 Unknown [id number] 2.16.840.1.607625.3.579.2.1 259 1991 Unknown [id number] 2.16.840.1.666442.3.579.2.1 259 1991 Unknown [id number] 2.16.840.1.595616.3.579.2.1 259 1991 Unknown [id number] 2.16.840.1.569711.3.579.2.1 259 1991 Unknown [id number] 2.16.840.1.253077.3.579.2.1 259 1991 Unknown [id number] 2.16.840.1.091406.3.579.2.1 259 1991 Unknown [id number] 2.16.840.1.625950.3.579.2.1 259 1991 Unknown [id number] 2.16.840.1.970065.3.579.2.1 259 1991 Unknown [id number] 2.16.840.1.212195.3.579.2.1 259 1959 Unknown [id number] 2.16.840.1.523900.19 Unknown [id number] Unknown MMO . [id number] Unknown [id number] 2.16.840.1.951166.3.579.2.5 31 Social History Date Type Detail Facility Start: 05-12-2022 End: 04-12-2023 Tobacco smoking status Never smoked tobacco (finding) [facility] Other Tobacco smoking status Never [facility] Start: 06-28-2023 End: 01-18-2025 Sex Assigned At Female [facility] Other Start: 1990 Sex Assigned At Female [facility] Start: 04-12-2023 Tobacco use and exposure Smokeless tobacco non-user [facility] Start: 06-28-2023 End: 01-29-2025 Alcohol intake Current drinker of alcohol (finding) [facility] Start: 06-28-2023 End: 01-18-2025 History of Social function [facility] Start: 04-12-2023 Alcohol Comment caffeine: 1-2 cups per day soda [facility] Start: 1990 Sex Assigned At Not on file [facility] Start: 02-15-2024 Alcohol Comment caffeine intak e : 5-6 cups per day coffee/soda [facility] Start: 09-07-2024 Alcohol Comment caffeine intak e : 1-2 cups per day coffee/soda [facility] Medical Equipment Procedure Code Equipment Code Equipment Origin al Text Equipment Identifier Dates [id number] Start: 01-15-2025 End: 01-15-2025 Functional Status Date Assessment Result Facility 11-27-2024 Functional Status N/A [facility] 03-16-2023 Functional Status N/A [facility] 05-12-2022 Functional Status N/A [facility] Clinical Notes 10-07-2021 to 03-06-2025 Ashley Veloz LPN - 03/06/2025 2:00 PM Heidi Ruggiero MD - 01/18/2025 11:00 AM Lindsay Ruggiero MD - 01/15/2025 9:00 AM Emeterio Melton MA - 01/04/2025 4:15 PM EST Note Date & Type Note Facility 03-06-2025 History of Present illness Narrative Reason for Appointment: Patient ID: Casi Brambila is a 34 y.o. female who presents for Well Women Visit Patient presents today for Annual Exam. MEDICATIONS Current Outpatient Medications Medication Instructions atorvastatin (LIPITOR) 10 mg, Oral, Daily benztropine (COGENTIN) 1 mg, 2 times daily Blood Glucose Monitoring Suppl (FreeStyle Lite) device Check BS daily. cholecalciferol (Vitamin D-3) 50 MCG (1999) capsule Take by mouth fluocinonide (Lidex) 0.05 % external solution Apply to affected areas on the scalp, up to twice a day when flared, 30 day supply fluticasone (Flonase) 50 MCG/ACT nasal spray 2 sprays, Each Nostril, Daily, Shake gently. Before first use, prime pump. After use, clean tip and replace cap. FreeStyle lancets glucose blood (FREESTYLE LITE) test strip Use as instructed hydrOXYzine HCl (ATARAX) 50 mg levothyroxine (SYNTHROID) 50 mcg, Oral, Daily before breakfast lisinopril 2.5 mg, Oral, Daily metFORMIN (GLUCOPHAGE) 1,000 mg, Oral, 2 times daily with meals norgestimate-ethinyl estradiol (Sprintec 28) 0.25-35 MG-MCG tablet 1 tablet, Oral, Daily, Take 1 tablet by mouth daily Ozempic (0.25 or 0.5 MG/DOSE) 0.25 mg, Subcutaneous, Weekly propranolol LA (INDERAL LA) 80 mg, Oral, Daily, Do not crush, chew, or split. sodium flouride (Prevident, Cavarest) 1.1 % dental gel BRUSH ON TEETH FOR 3 TO 5 MINUTES ONCE DAILY venlafaxine XR (Effexor XR) 150 MG 24 hr capsule 1 capsule venlafaxine XR (Effexor XR) 75 MG 24 hr capsule 1 capsule with food Orally Once a day. Take with 150mg Vraylar 3 MG capsule TAKE 1 CAPSULE BY MOUTH ONCE DAILY . DISCONTINUE THE 1.5MG DOSE. ALLERGIES Allergies Allergen Reactions Aripiprazole Other Reaction(s): adverse reaction Paroxetine Other Reaction(s): suicidal thoughts PROBLEMS Active Ambulatory Problems Diagnosis Date Noted Bipolar II disorder ([facility]) 2023 Cyclical vomiting, in migraine, intractable [place] 2023 Mixed anxiety and depressive disorder 2023 Mixed hyperlipidemia ([facility] 2023 Irregular periods 2023 Laxative abuse 2023 Metabolic syndrome 2023 Migraine without aura and without status migrainosus, not intractable ([facility] 2023 Morbid (severe) obesity due to excess calories ([facility] 2023 PCOS (polycystic ovarian syndrome) 2023 Prediabetes 2023 Sleeplessness 2023 Vitamin D insufficiency 2023 Body mass index (BMI) 40.0-44.9, adult ([facility] 01/13/2022 Constipation 10/22/2021 Resolved Ambulatory Problems Diagnosis Date Noted Recurrent major depression in full remission ([facility]) 04/02/2021 Past Medical History: Diagnosis Date Anxiety and depression ([facility] Anxiety and depression ([facility]) Anxiety in acute stress reaction ([facility]) Asthma ([facility]) control counseling BMI 40.0-44.9, adult ([facility] Depression ([facility]) Encounter for well woman exam Heart murmur Migraine ([facility]) Polycystic ovarian syndrome Positive depression screening HISTORY PAST MEDICAL HISTORY SOCIAL HISTORY Past Medical History: Diagnosis Date Anxiety and depression ([facility]) Anxiety and depression ([facility]) Anxiety in acute stress reaction ([facility]) Asthma ([facility]) control counseling BMI 40.0-44.9, adult ([facility] Depression [place] Encounter for well woman exam Heart murmur Metabolic syndrome Migraine ([facility]) PCOS (polycystic ovarian syndrome) Polycystic ovarian syndrome Positive depression screening Sleeplessness Social History Tobacco Use Smoking status: Never Smokeless tobacco: Never Vaping Use Vaping status: Never Used Substance Use Topics Alcohol use: Yes Alcohol/week: 3.0 - 4.0 standard drinks of alcohol Types: 3 - 4 Standard drinks or equivalent per week Comment: caffeine intake : 1-2 cups per day coffee/soda Drug use: Never FAMILY HISTORY Family History Problem Relation Name Age of Onset Hypertension Mother Hyperlipidemia Mother Hypertension Father Hyperlipidemia Father Hypertension Maternal Grandmother Diabetes Maternal Grandfather Hypertension Maternal Grandfather Heart disease Maternal Grandfather Diabetes Paternal Grandfather Hypertension Paternal Grandfather SURGICAL HISTORY Past Surgical History: Procedure Laterality Date CYSTOSCOPY 01/2022 Dr. Olson OTHER SURGICAL HISTORY 1992 bilateral tubes in ears TONSILLECTOMY 1995 REVIEW OF SYSTEMS Review of Systems: Review of Systems Constitutional: Negative. HENT: Negative. Eyes: Negative. Respiratory: Negative. Cardiovascular: Negative. Gastrointestinal: Negative. Genitourinary: Negative. Musculoskeletal: Negative. Skin: Negative. Neurological: Negative. All other systems reviewed and are negative. Hematological: Negative. Endocrine: Negative. Allergic/Immunologic: Negative. OBJECTIVE Objective: Physical Exam Constitutional: Appearance: Normal appearance. She is well-developed. Genitourinary: Vulva normal. Breasts: Breasts are soft. Right: Normal. Left: Normal. Cardiovascular: Rate and Rhythm: Normal rate and regular rhythm. Pulmonary: Effort: Pulmonary effort is normal. Breath sounds: Normal breath sounds. Abdominal: General: Bowel sounds are normal. There is no distension. Palpations: Abdomen is soft. Tenderness: There is no abdominal tenderness. There is no guarding or rebound. Musculoskeletal: General: No swelling. Normal range of motion. Right lower leg: No edema. Left lower leg: No edema. Neurological: Mental Status: She is alert and oriented to person, place, and time. Skin: General: Skin is warm and dry. Psychiatric: Mood and Affect: Mood normal. Behavior: Behavior normal. Vitals and nursing note reviewed. Exam conducted with a finish mill operator present. Vitals: Estimated body mass index is 40.36 kg/m as calculated from the following: Height as of 01/18/25: 5' 2.5 . Weight as of this encounter: 224 lb 4 oz. BP: 120/86 No LMP recorded. ASSESSMENT & PLAN ICD-10-CM 1. Well woman exam with routine gynecological exam Z01.419 POCT , urine manually resulted Pap Smear HPV DNA probe, amplified Annual Exam: Patient presents today for an annual exam. Patient states she is doing well and has no complaints. Pap was obtained without difficulty. Orders Placed This Encounter Procedures HPV DNA probe, amplified POCT , urine manually resulted Follow Up: Patient is to return in one year for annual unless needed otherwise. Documented by Ashley Veloz LPN on behalf of: Adi Rizvi DO documented in this encounter [facility] 01-18-2025 History of Present illness Narrative Images from the original note were not included. Casi Brambila is a 34 y.o. female presents with chief complaint of lower back pain radiating to hips HPI: HPI History of Present Illness The patient presents for evaluation of back pain. She reports experiencing pain in her back that radiates into her hips, particularly when arching her back. The pain is described as a sensation catarino to needing to crack her back, but without the ability to do so. She experienced a few episodes of sharp, shooting pains in her lower back yesterday afternoon, which she initially attributed to a potential pinched nerve. However, these sharp pains have not recurred today. Currently, she describes the pain as more of an ache, localized to the sides of her back, with no radiation upwards. The pain is exacerbated by lying on her back or hips, and prolonged sitting. She also reports pain in the back of her leg, but not in her back. She reports no numbness or tingling sensations down her legs. The pain is exacerbated by lying on her back or hips, and prolonged sitting. She had hip x-rays probably years ago when they showed cam deformities. She requests a referral to a clinical document improvement educator. SUBJECTIVE: MEDICATIONS: Current Outpatient Medications Medication Instructions atorvastatin (LIPITOR) 10 mg, Oral, Daily benztropine (COGENTIN) 1 mg, 2 times daily Blood Glucose Monitoring Suppl (FreeStyle Lite) device Check BS daily. cholecalciferol (Vitamin D-3) 50 MCG (1999 [place]) capsule Take by mouth fluocinonide (Lidex) 0.05 % external solution Apply to affected areas on the scalp, up to twice a day when flared, 30 day supply fluticasone (Flonase) 50 MCG/ACT nasal spray 2 sprays, Each Nostril, Daily, Shake gently. Before first use, prime pump. After use, clean tip and replace cap. FreeStyle lancets FREESTYLE LITE test strip hydrOXYzine HCl (ATARAX) 50 mg levothyroxine (SYNTHROID) 50 mcg, Oral, Daily before breakfast lisinopril 2.5 mg, Oral, Daily metFORMIN (GLUCOPHAGE) 1,000 mg, Oral, 2 times daily with meals norgestimate-ethinyl estradiol (Sprintec 28) 0.25-35 MG-MCG tablet 1 tablet, Oral, Daily, Take 1 tablet by mouth daily propranolol LA (INDERAL LA) 80 mg, Oral, Daily, Do not crush, chew, or split. sodium flouride (Prevident, Cavarest) 1.1 % dental gel BRUSH ON TEETH FOR 3 TO 5 MINUTES ONCE DAILY venlafaxine XR (Effexor XR) 150 MG 24 hr capsule 1 capsule venlafaxine XR (Effexor XR) 75 MG 24 hr capsule 1 capsule with food Orally Once a day. Take with 150mg Vraylar 3 MG capsule TAKE 1 CAPSULE BY MOUTH ONCE DAILY . DISCONTINUE THE 1.5MG DOSE. I have reviewed and reconciled the history and medication list with the patient today. REVIEW OF SYMPTOMS: Review of Systems OBJECTIVE: Visit Vitals BP 108/68 Pulse 82 Ht 5' 2.5 Wt 221 lb SpO2 96% BMI 39.78 kg/m OB Status Having periods Smoking Status Never BSA 2.1 m Physical Exam Vitals and nursing note reviewed. Constitutional: Appearance: Normal appearance. Musculoskeletal: Lumbar back: Tenderness present. No swelling, edema, deformity, signs of trauma, lacerations or spasms. Normal range of motion. Negative right straight leg raise test and negative left straight leg raise test. Comments: Tenderness over bilateral SI joints. Neurological: Mental Status: She is alert. ASSESSMENT AND PLAN: Assessment & Plan 1. Back pain. The pain appears to originate from the sacroiliac (SI) joints, where the hip bones meet the spine. The hamstrings are also notably tight. A regimen of exercises and stretches will be provided to address the discomfort. At this juncture, pharmacological intervention is not deemed necessary. Anti-inflammatories may be considered if required, but given the current medication load, it is preferable to avoid additional medications. Ibuprofen can be taken as needed for severe pain or sleep disturbances. 2. Diabetes mellitus. A referral to a clinical document improvement educator will be initiated. Assessment/Plan documented in this encounter [facility] 01-15-2025 History of Present illness Narrative Images from the original note were not included. Casi Brambila is a 34 y.o. female presents with chief complaint of first DM visit HPI: HPI History of Present Illness The patient presents for evaluation of diabetes, hypothyroidism, headache, and medication management. She has not made any significant alterations to her diet or exercise regimen over the past year, but she has experienced some weight gain. Her current physical activity is limited due to the winter season. She has previously been on Ozempic, which resulted in weight loss, and is considering resuming this medication. She is curious about her fasting blood glucose levels and is interested in obtaining a glucometer for home monitoring. She is currently on a regimen of metformin, taking two doses in the morning and one at night, which she resumed approximately two months ago after a brief discontinuation. She is also on Vraylar 3 mg, which is covered by her insurance. She reports that her work-related stress has improved since resuming her medications. She is currently on a low dose of propranolol, which has been effective in managing her headaches. She is still taking control pills but will be off of them soon as she has no plans for . She is still protecting against even when she is not on control pills. MEDICATIONS Current: Lipitor, metformin, Vraylar, propranolol Discontinued: Flexeril SUBJECTIVE: MEDICATIONS: Current Outpatient Medications Medication Instructions atorvastatin (LIPITOR) 10 mg, Oral, Daily benztropine (COGENTIN) 1 mg, 2 times daily cholecalciferol (Vitamin D-3) 50 MCG (1999 UT) capsule Take by mouth cyclobenzaprine (FLEXERIL) 10 mg, Oral, 3 times daily PRN fluocinonide (Lidex) 0.05 % external solution Apply to affected areas on the scalp, up to twice a day when flared, 30 day supply fluticasone (Flonase) 50 MCG/ACT nasal spray 2 sprays, Each Nostril, Daily, Shake gently. Before first use, prime pump. After use, clean tip and replace cap. hydrOXYzine HCl (ATARAX) 50 mg levothyroxine (SYNTHROID) 50 mcg, Oral, Daily before breakfast metFORMIN (Glucophage) 500 MG tablet TAKE 1 TABLET BY MOUTH THREE TIMES DAILY (MORNING, EVENING AND BEFORE BEDTIME) norgestimate-ethinyl estradiol (Sprintec 28) 0.25-35 MG-MCG tablet 1 tablet, Oral, Daily, Take 1 tablet by mouth daily propranolol LA (INDERAL LA) 80 mg, Oral, Daily, Do not crush, chew, or split. sodium flouride (Prevident, Cavarest) 1.1 % dental gel BRUSH ON TEETH FOR 3 TO 5 MINUTES ONCE DAILY venlafaxine XR (Effexor XR) 150 MG 24 hr capsule 1 capsule venlafaxine XR (Effexor XR) 75 MG 24 hr capsule 1 capsule with food Orally Once a day. Take with 150mg Vraylar 3 MG capsule TAKE 1 CAPSULE BY MOUTH ONCE DAILY . DISCONTINUE THE 1.5MG DOSE. I have reviewed and reconciled the history and medication list with the patient today. REVIEW OF SYMPTOMS: Review of Systems OBJECTIVE: Visit Vitals BP 112/66 Pulse 84 Ht 5' 2.5 Wt 223 lb SpO2 97% BMI 40.14 kg/m OB Status Having periods Smoking Status Never BSA 2.11 m Physical Exam Vitals and nursing note reviewed. Constitutional: Appearance: Normal appearance. Cardiovascular: Rate and Rhythm: Normal rate and regular rhythm. Pulses: Normal pulses. Heart sounds: Normal heart sounds. Pulmonary: Effort: Pulmonary effort is normal. Breath sounds: Normal breath sounds. Musculoskeletal: Cervical back: Normal range of motion and neck supple. Neurological: General: No focal deficit present. Mental Status: She is alert. Psychiatric: Mood and Affect: Mood normal. ASSESSMENT AND PLAN: Assessment & Plan 1. Diabetes Mellitus. Her A1c has increased from 5.6 to 6.7, indicating a diagnosis of diabetes. She is currently on metformin, taking 500 mg twice in the morning and once at night. She is advised to maintain a healthy diet and regular exercise regimen. If her blood glucose levels continue to rise, the initiation of GLP-1 therapy will be considered. The metformin dosage will be adjusted to 1000 mg twice daily for ease of administration. A glucometer will be provided for home monitoring of blood glucose levels. A basic metabolic panel will be conducted in approximately 10 to 14 days to monitor kidney function. 2. Kidney Protection. Given her diabetes diagnosis, an LÁZARO inhibitor will be initiated to protect her kidneys from long-term damage. Her blood pressure is on the low side, so a very low dose of lisinopril will be prescribed. She is advised to monitor for symptoms such as lightheadedness or dizziness, which may necessitate discontinuation of the medication. A basic metabolic panel will be conducted in approximately 10 to 14 days to ensure normal kidney function. 3. Hypothyroidism. She is currently on thyroid medication and reports feeling shaky. Thyroid function tests will be repeated today to ensure appropriate management. 4. Headaches. She is currently on propranolol for headache management, which has been effective. She is advised to continue propranolol as it also helps with blood pressure control. If her blood pressure drops, the lisinopril will be discontinued first. 5. Medication Management. She is no longer taking Flexeril and will soon discontinue her control pill. She is advised to continue Lipitor to manage cardiac risk associated with diabetes. Assessment/Plan Problem List Items Addressed This Visit Mixed hyperlipidemia (CMS/HCC) Relevant Orders Lipid panel Comprehensive metabolic panel Other Visit Diagnoses Type 2 diabetes mellitus without complication, without long-term current use of insulin (CMS/HCC) - Primary Relevant Medications metFORMIN (Glucophage) 1000 MG tablet lisinopril 2.5 MG tablet Blood Glucose Monitoring Suppl (FreeStyle Lite) device Other Relevant Orders Basic metabolic panel Lipid panel Comprehensive metabolic panel Acquired hypothyroidism (CMS/HCC) Relevant Orders TSH W/REFLEX TO FT4 documented in this encounter [facility] 01-04-2025 History of Present illness Narrative Pt here for a1c documented in this encounter [facility] 12-18-2024 History of Present illness Narrative Images from the original note were not included. Casi Brambila is a 34 y.o. female presents with chief complaint of URI HPI: HPI History of Present Illness The patient presents for evaluation of viral infection. She reports the onset of her symptoms was a day ago, characterized by headache, fatigue, and body aches. These symptoms have since escalated, with the development of greenish-yellow nasal discharge upon blowing her nose. She also experiences mild shortness of breath during coughing episodes. Additionally, she notes a decrease in her olfactory function, suspecting nasal congestion as the cause. She has a history of COVID-19 infection, during which she continued to work while wearing a mask, only taking a day off for rest. SUBJECTIVE: MEDICATIONS: ALLERGIES Current Outpatient Medications Medication Instructions atorvastatin (LIPITOR) 10 mg, Oral, Daily benztropine (COGENTIN) 1 mg, 2 times daily cholecalciferol (Vitamin D-3) 50 MCG (1999 UT) capsule Take by mouth cyclobenzaprine (FLEXERIL) 10 mg, Oral, 3 times daily PRN fluocinonide (Lidex) 0.05 % external solution Apply to affected areas on the scalp, up to twice a day when flared, 30 day supply fluticasone (Flonase) 50 MCG/ACT nasal spray 2 sprays, Each Nostril, Daily, Shake gently. Before first use, prime pump. After use, clean tip and replace cap. hydrOXYzine HCl (ATARAX) 50 mg levothyroxine (SYNTHROID) 50 mcg, Oral, Daily before breakfast metFORMIN (Glucophage) 500 MG tablet TAKE 1 TABLET BY MOUTH THREE TIMES DAILY (MORNING, EVENING AND BEFORE BEDTIME) norgestimate-ethinyl estradiol (Sprintec 28) 0.25-35 MG-MCG tablet 1 tablet, Oral, Daily, Take 1 tablet by mouth daily propranolol LA (INDERAL LA) 80 mg, Oral, Daily, Do not crush, chew, or split. sodium flouride (Prevident, Cavarest) 1.1 % dental gel BRUSH ON TEETH FOR 3 TO 5 MINUTES ONCE DAILY venlafaxine XR (Effexor XR) 150 MG 24 hr capsule 1 capsule venlafaxine XR (Effexor XR) 75 MG 24 hr capsule 1 capsule with food Orally Once a day. Take with 150mg Vraylar 1.5 MG capsule 1 capsule, Daily Allergies Allergen Reactions Aripiprazole Other Reaction(s): adverse reaction Paroxetine Other Reaction(s): suicidal thoughts PAST MEDICAL HISTORY: SOCIAL HISTORY SURGICAL HISTORY: Past Medical History: Diagnosis Date Anxiety and depression (CMS/HCC) Anxiety and depression (CMS/HCC) Anxiety in acute stress reaction (CMS/HCC) Asthma (CMS/HCC) control counseling BMI 40.0-44.9, adult (CMS/HCC) Depression (CMS/HCC) Encounter for well woman exam Heart murmur Metabolic syndrome Migraine (CMS/HCC) PCOS (polycystic ovarian syndrome) Polycystic ovarian syndrome Positive depression screening Sleeplessness Social History Tobacco Use Smoking status: Never Smokeless tobacco: Never Vaping Use Vaping status: Never Used Substance Use Topics Alcohol use: Yes Alcohol/week: 3.0 - 4.0 standard drinks of alcohol Types: 3 - 4 Standard drinks or equivalent per week Comment: caffeine intake : 1-2 cups per day coffee/soda Drug use: Never Past Surgical History: Procedure Laterality Date CYSTOSCOPY 01/2022 Dr. Olson OTHER SURGICAL HISTORY 1992 bilateral tubes in ears TONSILLECTOMY 1995 REVIEW OF SYMPTOMS: Review of Systems Constitutional: Positive for fatigue and fever. HENT: Positive for congestion, rhinorrhea, sinus pain and sore throat. Respiratory: Positive for cough, shortness of breath and wheezing. Cardiovascular: Negative for chest pain, palpitations and leg swelling. Gastrointestinal: Negative for abdominal pain. All other systems reviewed and are negative. OBJECTIVE: Vitals: 12/18/24 0802 BP: 118/72 Pulse: 93 Temp: 97.5 F SpO2: 97% Physical Exam Vitals and nursing note reviewed. Constitutional: Appearance: Normal appearance. HENT: Head: Normocephalic and atraumatic. Right Ear: Tympanic membrane normal. Left Ear: Tympanic membrane normal. Nose: Congestion present. Right Sinus: Frontal sinus tenderness present. Left Sinus: Frontal sinus tenderness present. Mouth/Throat: Mouth: Mucous membranes are moist. Pharynx: Posterior oropharyngeal erythema present. Tonsils: No tonsillar exudate. Cardiovascular: Rate and Rhythm: Normal rate and regular rhythm. Pulses: Normal pulses. Heart sounds: Normal heart sounds. Pulmonary: Effort: Pulmonary effort is normal. Breath sounds: Normal breath sounds. Musculoskeletal: Cervical back: Normal range of motion and neck supple. Skin: General: Skin is warm and dry. Neurological: Mental Status: She is alert. ASSESSMENT AND PLAN: Assessment/Plan Diagnoses and all orders for this visit: Fever, unspecified fever cause - STATUS COVID-19/FLU COVID-19 COVID positive in office. Educated patient viral infections such as colds/flus do not respond to abx and typically do not begin to improve until 7-10 days into the illness. Discussed symptomatic treatment with patient. Humidifier at bedside to moisten area. Push fluids. Rest. Good handwashing. Follow up if symptoms do not improve. To ER for markedly worsening symptoms. No follow-ups on file. documented in this encounter [facility] 11-27-2024 Hospital Discharge instructions Patient Education 11/27/2024 13:13:55 Kidney Stones, [id number] Kidney Stones Kidney stones are rock-like masses [...] pee. The stone usually leaves your body through your pee. A doctor may need to take out the stone. What are the causes? Kidney stones may be caused by: Too much calcium in the body. This may be caused by too much parathyroid hormone in the blood. Uric acid crystals in the bladder. The body makes uric acid when you eat certain foods. Narrowing of one or both of the ureters. A kidney blockage that you were born with. Past surgery on the kidney or the ureters. What increases the risk? You are more likely to develop this condition if: You have had a kidney stone in the past. Other people in your family have had kidney stones. You do not drink enough water. You eat a diet that is high in protein, salt (sodium), or sugar. You are very overweight (obese). What are the signs or symptoms? Symptoms of a kidney stone may include: Pain in the side of the belly, right below the ribs. Pain usually spreads to the groin. Needing to pee often or right away. Pain when peeing. Blood in your pee. Feeling like you may vomit (nauseous). Vomiting. Fever and chills. How is this treated? Treatment depends on the size, location, and makeup of the kidney stones. The stones will often pass out of the body when you pee. You may need to: Drink more fluid to help pass the stone. ?In some cases, you may be given fluids through an IV tube at the hospital. Take medicine for pain. Change your diet to help keep kidney stones from coming back. Sometimes, you may need: A procedure to break up kidney stones using a beam of light (laser) or shock waves. Surgery to remove the kidney stones. Follow these instructions at home: Medicines Take [id number] and prescription medicines only as told by your doctor. Ask your doctor if the medicine prescribed to you requires you to avoid driving or using machinery. Eating and drinking Drink enough fluid to keep your pee pale yellow. ?You may be told to drink at least 8 10 glasses of water each day. This will help you pass the stone. If told by your doctor, change your diet. You may be told to: ?Limit how much salt you eat. ?Eat more fruits and vegetables. ?Limit how much meat, poultry, fish, and eggs you eat. Follow instructions from your doctor about what you may eat and drink. General instructions Collect pee samples as told by your doctor. You may need to collect a pee sample: ?24 hours after a stone comes out. ?8 12 weeks after a stone comes out, and every 6 12 months after that. Strain your pee every time you pee. Use the strainer that your doctor recommends. Do not throw out the stone. Keep it so that it can be tested by your doctor. Keep all follow-up visits. You may need X-rays and ultrasounds to make sure the stone has come out. How is this prevented? To prevent another kidney stone: Drink enough fluid to keep your pee pale yellow. This is the best way to prevent kidney stones. Eat healthy foods. Avoid certain foods as told by your doctor. You may be told to eat less protein. Stay at a healthy weight. Where to find more information National Kidney Foundation (NKF): kidney.org U[facility] Care [facility] (UCF): urologyhealth.org Contact a doctor if: You have pain that gets worse or does not get better with medicine. Get help right away if: You have a fever or chills. You get very bad pain. You get new pain in your belly. You faint. You cannot pee. This information is not intended to replace advice given to you by your health care provider. Make sure you discuss any questions you have with your health care provider. Document Revised: 07/01/2023 Document Reviewed: 07/01/2023 [employer] Patient Education 2023 [employer]. Follow Up Care 10/30/2024 09:39:23 With:[facility] [place] Address: When: Unknown Comments:Only if needed/new problems arise. No scheduled appointment indicated at this time. [facility] [place] 11-27-2024 Note Patient Education Urology Kidney Stones Kidney stones are rock-like masses that form inside of the kidneys. Kidneys are organs that make pee (urine). A kidney stone may move into other parts of the urinary tract, including: ??? The tubes that connect the kidneys to the bladder (ureters). ??? The bladder. ??? The tube that carries urine out of the body (urethra). Kidney stones can cause very bad pain and can block the flow of pee. The stone usually leaves your body through your pee. A doctor may need to take out the stone. What are the causes? Kidney stones may be caused by: ??? Too much calcium in the body. This may be caused by too much parathyroid hormone in the blood. ??? Uric acid crystals in the bladder. The body makes uric acid when you eat certain foods. ??? Narrowing of one or both of the ureters. ??? A kidney blockage that you were born with. ??? Past surgery on the kidney or the ureters. What increases the risk? You are more likely to develop this condition if: ??? You have had a kidney stone in the past. ??? Other people in your family have had kidney stones. ??? You do not drink enough water. ??? You eat a diet that is high in protein, salt (sodium), or sugar. ??? You are very overweight (obese). What are the signs or symptoms? Symptoms of a kidney stone may include: ??? Pain in the side of the belly, right below the ribs. Pain usually spreads to the groin. ??? Needing to pee often or right away. ??? Pain when peeing. ??? Blood in your pee. ??? Feeling like you may vomit (nauseous). ??? Vomiting. ??? Fever and chills. How is this treated? Treatment depends on the size, location, and makeup of the kidney stones. The stones will often pass out of the body when you pee. You may need to: ??? Drink more fluid to help pass the stone. ? In some cases, you may be given fluids through an IV tube at the hospital. ??? Take medicine for pain. ??? Change your diet to help keep kidney stones from coming back. Sometimes, you may need: ??? A procedure to break up kidney stones using a beam of light (laser) or shock waves. ??? Surgery to remove the kidney stones. Follow these instructions at home: Medicines ??? Take [id number] and prescription medicines only as told by your doctor. ??? Ask your doctor if the medicine prescribed to you requires you to avoid driving or using machinery. Eating and drinking ??? Drink enough fluid to keep your pee pale yellow. ? You may be told to drink at least 8?10 glasses of water each day. This will help you pass the stone. ??? If told by your doctor, change your diet. You may be told to: ? Limit how much salt you eat. ? Eat more fruits and vegetables. ? Limit how much meat, poultry, fish, and eggs you eat. ??? Follow instructions from your doctor about what you may eat and drink. General instructions ??? Collect pee samples as told by your doctor. You may need to collect a pee sample: ? 24 hours after a stone comes out. ? 8?12 weeks after a stone comes out, and every 6?12 months after that. ??? Strain your pee every time you pee. Use the strainer that your doctor recommends. ??? Do not throw out the stone. Keep it so that it can be tested by your doctor. ??? Keep all follow-up visits. You may need X-rays and ultrasounds to make sure the stone has come out. How is this prevented? To prevent another kidney stone: ??? Drink enough fluid to keep your pee pale yellow. This is the best way to prevent kidney stones. ??? Eat healthy foods. ??? Avoid certain foods as told by your doctor. You may be told to eat less protein. ??? Stay at a healthy weight. Where to find more information ??? National Kidney Foundation (NKF): kidney.org ??? Urology Care Foundation (UCF): urologyhealth.org Contact a doctor if: ??? You have pain that gets worse or does not get better with medicine. Get help right away if: ??? You have a fever or chills. ??? You get very bad pain. ??? You get new pain in your belly. ??? You faint. ??? You cannot pee. This information is not intended to replace advice given to you by your health care provider. Make sure you discuss any questions you have with your health care provider. Document Revised: 07/01/2023 Document Reviewed: 07/01/2023 [employer] Patient Education ? 2023 [employer]. [facility] 11-19-2024 History of Present illness Narrative Images from the original note were not included. Casi Brambila is a 34 y.o. female presents with chief complaint of Headache HPI: HPI History of Present Illness The patient presents for evaluation of a headache. She has been experiencing a persistent headache for several weeks, which she describes as frontal in location. She also reports associated neck discomfort and an overall feeling of being unwell. She has not taken any steroids for these symptoms. Dr. Mayer thought it was tension headache and advised her to use naproxen. Despite attempts at self-medication with Tylenol, Aleve, and ibuprofen, there has been no relief. A cupping procedure performed by Dr. Mayer also failed to alleviate the symptoms. She has previously used cyclobenzaprine but not recently. She has a past medical history of migraines. Additionally, she reports bilateral ear pain, which was previously treated with Augmentin a few weeks ago. She completed the full course of this medication. She has Flonase at home but has not been using it. MEDICATIONS Current: Tylenol, Aleve, ibuprofen, Augmentin, Flonase, naproxen. Past: Cyclobenzaprine. SUBJECTIVE: MEDICATIONS: Current Outpatient Medications Medication Instructions amoxicillin-clavulanate (Augmentin) 875-125 MG tablet 875 mg, Oral, 2 times daily atorvastatin (LIPITOR) 10 mg, Oral, Daily benztropine (COGENTIN) 1 mg, 2 times daily cholecalciferol (Vitamin D-3) 50 MCG (2000 UT) capsule Take by mouth cyclobenzaprine (FLEXERIL) 10 mg, Oral, 3 times daily PRN fluocinonide (Lidex) 0.05 % external solution Apply to affected areas on the scalp, up to twice a day when flared, 30 day supply fluticasone (Flonase) 50 MCG/ACT nasal spray 2 sprays, Each Nostril, Daily, Shake gently. Before first use, prime pump. After use, clean tip and replace cap. hydrOXYzine HCl (ATARAX) 50 mg levothyroxine (SYNTHROID) 50 mcg, Oral, Daily before breakfast metFORMIN (Glucophage) 500 MG tablet TAKE 1 TABLET BY MOUTH THREE TIMES DAILY (MORNING, EVENING AND BEFORE BEDTIME) predniSONE (DELTASONE) 20 mg, Oral, 2 times daily propranolol LA (INDERAL LA) 80 mg, Oral, Daily, Do not crush, chew, or split. sodium flouride (Prevident, Cavarest) 1.1 % dental gel BRUSH ON TEETH FOR 3 TO 5 MINUTES ONCE DAILY venlafaxine XR (Effexor XR) 150 MG 24 hr capsule 1 capsule venlafaxine XR (Effexor XR) 75 MG 24 hr capsule 1 capsule with food Orally Once a day. Take with 150mg I have reviewed and reconciled the history and medication list with the patient today. REVIEW OF SYMPTOMS: Review of Systems Constitutional: Negative. HENT: Positive for ear pain. Respiratory: Negative for cough, shortness of breath and wheezing. Cardiovascular: Negative for chest pain. Gastrointestinal: Negative for abdominal pain. Genitourinary: Negative. Musculoskeletal: Negative. Skin: Negative. Neurological: Positive for headaches. OBJECTIVE: Visit Vitals BP 130/72 Pulse 106 Ht 5' 2 Wt 218 lb SpO2 98% BMI 39.87 kg/m OB Status Having periods Smoking Status Never BSA 2.08 m Physical Exam Vitals and nursing note reviewed. Constitutional: Appearance: Normal appearance. HENT: Head: Normocephalic and atraumatic. Right Ear: Tympanic membrane normal. Left Ear: Tympanic membrane normal. Nose: Nose normal. Mouth/Throat: Mouth: Mucous membranes are moist. Pharynx: Oropharynx is clear. Cardiovascular: Rate and Rhythm: Normal rate and regular rhythm. Pulses: Normal pulses. Heart sounds: Normal heart sounds. Pulmonary: Effort: Pulmonary effort is normal. Breath sounds: Normal breath sounds. Musculoskeletal: Cervical back: Neck supple. Spasms and tenderness present. No swelling, edema, deformity, erythema, signs of trauma or lacerations. Decreased range of motion. Comments: Spasm of the right cervical spinalis. Skin: General: Skin is warm and dry. Capillary Refill: Capillary refill takes less than 2 seconds. Neurological: Mental Status: She is alert and oriented to person, place, and time. ASSESSMENT AND PLAN: Assessment/Plan Diagnoses and all orders for this visit: Spasm of cervical paraspinous muscle - predniSONE (Deltasone) 20 MG tablet; Take 1 tablet (20 mg) by mouth in the morning and 1 tablet (20 mg) before bedtime. Do all this for 5 days. - cyclobenzaprine (Flexeril) 10 MG tablet; Take 1 tablet (10 mg) by mouth 3 (three) times a day as needed for muscle spasms for up to 5 days No relief with cupping. Symptoms consistent with muscular strain. Encouraged improved posture. Initiate steroids and muscle relaxers. Rest. Apply ice to area of pain alternated with heat indirectly for 20 minutes every 1-2 hours. Take medication as prescribed. RTC if symptoms unrelieved after 1 week. Pt offered understanding of treatment plan. Acute intractable headache, unspecified headache type Poor posture Bipolar II disorder Mixed hyperlipidemia Morbid (severe) obesity due to excess calories Body mass index 39.0-39.9 documented in this encounter [facility] 11-12-2024 History of Present illness Narrative Acute right otitis media. Prescription sent. Right T/M injected. documented in this encounter [facility] 11-12-2024 Telephone encounter Note Patient is requesting antibiotic to [facility] for her ear. Thank you [facility] 11-12-2024 Miscellaneous Notes Patient is requesting antibiotic to [facility] in [place] for her ear. Thank you documented in this encounter [facility] 11-08-2024 History of Present illness Narrative Images from the original note were not included. Casi Brambila is a 34 y.o. female presents with chief complaint of Headache (Migraine on the right side of head, neck and face the past week. Tylenol, motrin, Imitrex and ubrevly haven't helped. Tried a propranlol 120mg last night to see if that would help but didn't. Post nasal drip started this morning and chest pressure started 30 minutes ago and is still currently feeling in office./) History of Present Illness The patient presents for evaluation of headache and chest pressure. She has been experiencing a persistent headache since Tuesday, which has not responded to [id number] medications such as Tylenol or ibuprofen. The headache is localized around and behind the eye, occasionally radiating to the jaw and the back of the head. She also reports neck stiffness, particularly on the right side, which was most severe last night. This is the first time she has experienced a headache of this duration, as her previous headaches typically resolved with Tylenol or ibuprofen. She rates her pain as a 7 on a scale of 1 to 10. She does not report any associated nausea or vomiting and does not believe her symptoms are stress-related. She does not report any visual disturbances. She has not taken hydroxyzine this week and has not yet started Flonase. She reports no anxiety or burning sensation in the throat or neck. She does not experience shortness of breath or excessive sweating, although she notes a constant feeling of warmth. She reports no leg swelling. Despite trying Ubrelvy and Imitrex, there has been no relief. She took propranolol 120 mg last night, which resulted in a decreased pulse rate this morning, but the headache persisted. She has recently begun experiencing intermittent chest pressure, which she describes as a gripping sensation in the middle of her chest. She is uncertain if this is related to indigestion. She does not report any associated anxiety or burning sensation, although she did experience a brief episode of burning at the base of her chest. She does not experience any radiation of pain to her arms. MEDICATIONS Current: Tylenol, ibuprofen, Ubrelvy, Imitrex, propranolol HPI: Headache Associated symptoms include dizziness, ear pain, neck pain and weakness. SUBJECTIVE: MEDICATIONS: Current Outpatient Medications Medication Instructions atorvastatin (LIPITOR) 10 mg, Oral, Daily benztropine (COGENTIN) 1 mg, 2 times daily cholecalciferol (Vitamin D-3) 50 MCG (2000 UT) capsule Take by mouth fluocinonide (Lidex) 0.05 % external solution Apply to affected areas on the scalp, up to twice a day when flared, 30 day supply fluticasone (Flonase) 50 MCG/ACT nasal spray 2 sprays, Each Nostril, Daily, Shake gently. Before first use, prime pump. After use, clean tip and replace cap. hydrOXYzine HCl (ATARAX) 50 mg levothyroxine (SYNTHROID) 50 mcg, Oral, Daily before breakfast metFORMIN (Glucophage) 500 MG tablet TAKE 1 TABLET BY MOUTH THREE TIMES DAILY (MORNING, EVENING AND BEFORE BEDTIME) propranolol LA (INDERAL LA) 80 mg, Oral, Daily, Do not crush, chew, or split. sodium flouride (Prevident, Cavarest) 1.1 % dental gel BRUSH ON TEETH FOR 3 TO 5 MINUTES ONCE DAILY venlafaxine XR (Effexor XR) 150 MG 24 hr capsule 1 capsule venlafaxine XR (Effexor XR) 75 MG 24 hr capsule 1 capsule with food Orally Once a day. Take with 150mg I have reviewed and reconciled the history and medication list with the patient today. REVIEW OF SYMPTOMS: Review of Systems Constitutional: Positive for fatigue. HENT: Positive for ear pain and postnasal drip. Respiratory: Positive for chest tightness. Musculoskeletal: Positive for neck pain. Neurological: Positive for dizziness, weakness and headaches. Psychiatric/Behavioral: Positive for sleep disturbance. OBJECTIVE: Visit Vitals BP 106/62 Pulse 72 Temp 99.6 F Ht 5' 2 Wt 215 lb 12.8 oz SpO2 98% BMI 39.47 kg/m OB Status Having periods Smoking Status Never BSA 2.07 m Physical Exam Vitals and nursing note reviewed. Constitutional: Appearance: Normal appearance. HENT: Head: Normocephalic and atraumatic. Right Ear: Tympanic membrane normal. Left Ear: Tympanic membrane normal. Nose: Nose normal. Mouth/Throat: Mouth: Mucous membranes are moist. Pharynx: Oropharynx is clear. Cardiovascular: Rate and Rhythm: Normal rate and regular rhythm. Pulses: Normal pulses. Heart sounds: Normal heart sounds. Pulmonary: Effort: Pulmonary effort is normal. Breath sounds: Normal breath sounds. Musculoskeletal: Cervical back: Neck supple. Spasms and tenderness present. No swelling, edema, deformity, erythema, signs of trauma or lacerations. Decreased range of motion. Comments: Spasm of the right cervical spinalis. Neurological: Mental Status: She is alert. ASSESSMENT AND PLAN: Assessment & Plan 1. Tension headache. The symptoms suggest a tension headache, likely due to muscle tightness in the neck. Migraine medications such as Ubrelvy and Imitrex have been ineffective. She will start taking Aleve (naproxen) 220 mg, two tablets twice daily for the next several days. A cupping therapy session for the neck muscles is scheduled for tomorrow to provide more instant relief. 2. Chest pressure. The chest pressure is likely musculoskeletal in nature, possibly related to heartburn. Blood pressure readings are within normal range, and there are no other symptoms indicative of a cardiac issue. If the chest pain intensifies, she is advised to seek immediate medical attention at the ER. Assessment/Plan Problem List Items Addressed This Visit None Visit Diagnoses Spasm of cervical paraspinous muscle - Primary documented in this encounter [facility] 11-06-2024 History of Present illness Narrative Images from the original note were not included. Casi Reema Brambila is a 34 y.o. female presents with chief complaint of Med Refill (Patient currently happy with medications but would like to discuss restarting a statin. Had elevated liver enzymes in the past so stopped. Also BS today around 3pm was 147. Pt has felt dizzy, tachycardic and has had a headache. ) Would like to discuss weight loss options such as Ozempic. Had success in the past. Curious about samples to try. HPI: HPI History of Present Illness The patient presents for evaluation of fatty liver, PCOS, headache, tachycardia, and weight management. She has expressed a desire to resume her cholesterol medication, citing a decrease in liver enzymes. An ultrasound confirmed the presence of fatty liver. She discontinued her statin medication in 06/2024, as per our previous agreement to reassess her condition. A referral to a adobe architect has been initiated. She is currently making dietary modifications, specifically reducing her intake of fried, fatty, and cholesterol-rich foods. She was previously on a 10 mg dose of Lipitor and fenofibrate for triglyceride management, which she found beneficial. She admits to poor medication adherence last month, having discontinued Vraylar and gabapentin, but reports feeling well. She had a psychiatric consultation last week and was advised to increase her benzodiazepine dosage due to persistent hand tremors and leg numbness. She had also stopped taking metformin for a month but has recently resumed it. Her A1c level was 5.6 in mid-September 2024, which is the highest recorded level. She was not on metformin at that time. She suspects slight weight gain during the period she was off metformin. She reports no urinary or bowel issues. She experienced constipation last week, which she managed with MiraLAX. She began experiencing headaches last week, which have persisted despite medication. She initially attributed the headaches to her menstrual cycle, but they have continued. She reports no rhinorrhea, congestion, sore throat, nausea, vomiting, or blurry vision. She reports good sleep quality and feels rested upon waking. Over the past week, she has noticed episodes of tachycardia, particularly severe today, even though her blood pressure remains normal. These symptoms have only occurred since discontinuing Vraylar and gabapentin. She does not feel anxious and reports adequate hydration. She recalls her pulse rate being in the 120s post-lunch and estimates experiencing tachycardia a few times daily, even during periods of rest. She was previously on propranolol 80 mg once daily for tachycardia, which she found effective, but discontinued it in 03/2024. She lost 20 to 30 pounds while on Ozempic, reducing her weight from 228 pounds to 203 pounds. She has maintained a 10-pound weight loss since discontinuing Ozempic. FAMILY HISTORY The patient reports a terrible family history of heart issues and diabetes. MEDICATIONS Current: Effexor, metformin Discontinued: Vraylar, gabapentin, propranolol, Lipitor, fenofibrate SUBJECTIVE: MEDICATIONS: Current Outpatient Medications Medication Instructions benztropine (COGENTIN) 1 mg, 2 times daily cholecalciferol (Vitamin D-3) 50 MCG (1999 UT) capsule Take by mouth fluocinonide (Lidex) 0.05 % external solution Apply to affected areas on the scalp, up to twice a day when flared, 30 day supply fluticasone (Flonase) 50 MCG/ACT nasal spray 1 spray in each nostril Nasally Once a day. PRN for 30 days hydrOXYzine HCl (ATARAX) 50 mg levothyroxine (SYNTHROID) 50 mcg, Oral, Daily before breakfast metFORMIN (Glucophage) 500 MG tablet TAKE 1 TABLET BY MOUTH THREE TIMES DAILY (MORNING, EVENING AND BEFORE BEDTIME) sodium flouride (Prevident, Cavarest) 1.1 % dental gel BRUSH ON TEETH FOR 3 TO 5 MINUTES ONCE DAILY venlafaxine XR (Effexor XR) 150 MG 24 hr capsule 1 capsule venlafaxine XR (Effexor XR) 75 MG 24 hr capsule 1 capsule with food Orally Once a day. Take with 150mg I have reviewed and reconciled the history and medication list with the patient today. REVIEW OF SYMPTOMS: Review of Systems Neurological: Positive for dizziness and headaches. OBJECTIVE: Visit Vitals BP 118/82 Pulse 90 Ht 5' 2 Wt 217 lb 6.4 oz SpO2 99% BMI 39.76 kg/m OB Status Having periods Smoking Status Never BSA 2.08 m Physical Exam Vitals and nursing note reviewed. Constitutional: Appearance: Normal appearance. HENT: Head: Normocephalic and atraumatic. Right Ear: Tympanic membrane normal. Left Ear: Tympanic membrane normal. Mouth/Throat: Mouth: Mucous membranes are moist. Pharynx: Oropharynx is clear. Cardiovascular: Rate and Rhythm: Normal rate and regular rhythm. Pulmonary: Effort: Pulmonary effort is normal. Breath sounds: Normal breath sounds. Musculoskeletal: Cervical back: Normal range of motion and neck supple. Neurological: Mental Status: She is alert. ASSESSMENT AND PLAN: Assessment & Plan 1. Hepatic steatosis. Her liver enzymes, although still elevated, have shown a decrease. The use of Lipitor could potentially benefit her fatty liver condition. A prescription for Lipitor 10 mg will be provided. Liver enzymes will be monitored in 4 weeks to assess the impact of the medication. She is advised to continue avoiding fried, fatty, and cholesterol-rich foods. 2. Polycystic ovary syndrome. Her A1c level was 5.6 in mid-September 2024, which is the highest recorded level, but not high enough to be classified as diabetes. She has gained approximately 10 pounds since July 2024, likely due to discontinuation of metformin. She will resume metformin therapy. If her weight loss plateaus, a short course of Ozempic may be considered to facilitate further weight loss. 3. Cephalgia. She has been experiencing persistent headaches for the past week. A prescription for propranolol 80 mg once daily will be provided to manage her headaches. She is advised to monitor her symptoms and report any changes. 4. Tachycardia. She has been experiencing episodes of tachycardia, with her pulse reaching the 120s post-lunch. She is advised to document the timing and circumstances of these episodes. If the episodes persist, a monitor may be considered to assess her cardiac rhythm. If her rhythm is normal, a low-dose beta-lin such as propranolol or metoprolol may be reintroduced. 5. Weight management. She has lost 20 to 30 pounds while on Ozempic, reducing her weight from 228 pounds to 203 pounds. She has maintained a 10-pound weight loss since discontinuing Ozempic. She is advised to continue her current weight management strategies and monitor her weight. Assessment/Plan Problem List Items Addressed This Visit Mixed hyperlipidemia (CMS/HCC) - Primary Relevant Medications atorvastatin (Lipitor) 10 MG tablet Other Relevant Orders AST ALT Other Visit Diagnoses Nonintractable headache, unspecified chronicity pattern, unspecified headache type Relevant Medications propranolol LA (Inderal LA) 80 MG 24 hr capsule Tachycardia documented in this encounter [facility] 10-30-2024 History of Present illness Narrative Images from the original note were not included. Casi Brambila is a 34 y.o. female presents with chief complaint of Abdominal Pain HPI: Patient is here for sx of abdominal pain on the left side that started Tuesday. Patient thought that she might have overate since she had a pound of wings but the pain never subsided. She thought she was constipated so she tried doing miralax. The pain is bearable today, History of Present Illness The patient presents for abdominal pain. She began experiencing abdominal discomfort on Tuesday afternoon, which has since subsided. The pain intensifies upon consumption of food or beverages. She reports a sensation of bloating and initially attributed it to overeating. She does not experience any symptoms of nausea or vomiting. She does not report any symptoms of acid reflux and is not on any medication for it. She also reports constipation, necessitating the use of MiraLAX. She had one hard stool on Tuesday and two hard stools yesterday. She took MiraLAX at approximately 5 PM yesterday. The abdominal pain radiates to her lower back. She still has her gallbladder. MEDICATIONS MiraLAX SUBJECTIVE: MEDICATIONS: ALLERGIES Current Outpatient Medications Medication Instructions cholecalciferol (Vitamin D-3) 50 MCG (1999) capsule Take by mouth fluocinonide (Lidex) 0.05 % external solution Apply to affected areas on the scalp, up to twice a day when flared, 30 day supply fluticasone (Flonase) 50 MCG/ACT nasal spray 1 spray in each nostril Nasally Once a day. PRN for 30 days hydrOXYzine HCl (ATARAX) 50 mg levothyroxine (SYNTHROID) 50 mcg, Oral, Daily before breakfast metFORMIN (Glucophage) 500 MG tablet TAKE 1 TABLET BY MOUTH THREE TIMES DAILY (MORNING, EVENING AND BEFORE BEDTIME) sodium flouride (Prevident, [place]arest) 1.1 % dental gel BRUSH ON TEETH FOR 3 TO 5 MINUTES ONCE DAILY venlafaxine XR (Effexor XR) 150 MG 24 hr capsule 1 capsule venlafaxine XR (Effexor XR) 75 MG 24 hr capsule 1 capsule with food Orally Once a day. Take with 150mg Allergies Allergen Reactions Aripiprazole Other Reaction(s): adverse reaction Paroxetine Other Reaction(s): suicidal thoughts PAST MEDICAL HISTORY: SOCIAL HISTORY SURGICAL HISTORY: Past Medical History: Diagnosis Date Anxiety and depression (CMS/HCC) Anxiety and depression (CMS/HCC) Anxiety in acute stress reaction (CMS/HCC) Asthma (CMS/HCC) control counseling BMI 40.0-44.9, adult (CMS/HCC) Depression (CMS/HCC) Encounter for well woman exam Heart murmur Metabolic syndrome Migraine (CMS/HCC) PCOS (polycystic ovarian syndrome) Polycystic ovarian syndrome Positive depression screening Sleeplessness Social History Tobacco Use Smoking status: Never Smokeless tobacco: Never Vaping Use Vaping status: Never Used Substance Use Topics Alcohol use: Yes Alcohol/week: 3.0 - 4.0 standard drinks of alcohol Types: 3 - 4 Standard drinks or equivalent per week Comment: caffeine intake : 1-2 cups per day coffee/soda Drug use: Never Past Surgical History: Procedure Laterality Date CYSTOSCOPY 01/2022 Dr. Olson OTHER SURGICAL HISTORY 1992 bilateral tubes in ears TONSILLECTOMY 1995 REVIEW OF SYMPTOMS: Review of Systems Constitutional: Negative. HENT: Negative. Respiratory: Negative for cough, shortness of breath and wheezing. Cardiovascular: Negative for chest pain. Gastrointestinal: Positive for abdominal distention and abdominal pain. Genitourinary: Negative. Musculoskeletal: Negative. Skin: Negative. Neurological: Negative. All other systems reviewed and are negative. OBJECTIVE: Vitals: 10/30/24 0858 BP: 124/82 Pulse: 98 SpO2: 98% Physical Exam Vitals and nursing note reviewed. Constitutional: Appearance: Normal appearance. HENT: Head: Normocephalic and atraumatic. Right Ear: Tympanic membrane normal. Left Ear: Tympanic membrane normal. Nose: Nose normal. Eyes: Extraocular Movements: Extraocular movements intact. Conjunctiva/sclera: Conjunctivae normal. Pupils: Pupils are equal, round, and reactive to light. Cardiovascular: Rate and Rhythm: Normal rate and regular rhythm. Heart sounds: Normal heart sounds. Pulmonary: Effort: Pulmonary effort is normal. Breath sounds: Normal breath sounds. Abdominal: General: Bowel sounds are decreased. Palpations: Abdomen is soft. Tenderness: There is abdominal tenderness in the epigastric area and left upper quadrant. Musculoskeletal: Cervical back: Normal range of motion and neck supple. Skin: General: Skin is warm and dry. Neurological: Mental Status: She is alert. ASSESSMENT AND PLAN: Assessment/Plan Diagnoses and all orders for this visit: Epigastric pain - Amylase; Future - Lipase; Future - Comprehensive metabolic panel; Future - CBC and differential; Future - POCT Urinalysis dipstick Labs as ordered. Likely related to constipation, as she does struggle with this and is having hard stools over the last few days. Encouraged to use miralax twice a day until she has a large soft stool. She will lt us know how she is feeling on . Morbid (severe) obesity due to excess calories (CMS/HCC) Metabolic syndrome No follow-ups on file. documented in this encounter [facility] 10-15-2024 Telephone encounter Note Pt would like to speak to you about starting the generic Contrave: Bupropion and Naltrexone :) [facility] 10-15-2024 Miscellaneous Notes Pt would like to speak to you about starting the generic Contrave: Bupropion and Naltrexone :) documented in this encounter [facility] 10-02-2024 History of Present illness Narrative Casi Brambila is a 34 y.o. female presents with chief complaint of Weight Check HPI: Patient is here to talk about getting back on ozempic. She does stay active during the week with her cleaning the sikhism three times a week. She would also like to discuss cholesterol medication. History of Present Illness The patient presents for a 6-month follow-up. She has been self-administering Ozempic 2 mg once a month for the past 5 months due to a lack of insurance coverage. She is interested in resuming this medication. Her last lab work was conducted in December 2023. She acknowledges a need for improved dietary habits. She had a consultation with Dr. Mayer in July 2024 for medication refills, during which her cholesterol medication was discontinued due to elevated liver enzymes. She admits to consuming alcohol heavily over a weekend, which she believes may have contributed to the abnormal liver enzyme levels. She was previously on a statin and fenofibrate. Her alcohol consumption has decreased compared to previous levels. SUBJECTIVE: MEDICATIONS: ALLERGIES Current Outpatient Medications Medication Instructions benztropine (COGENTIN) 1 mg, Daily cholecalciferol (Vitamin D-3) 50 MCG (2000 UT) capsule Take by mouth fluocinonide (Lidex) 0.05 % external solution Apply to affected areas on the scalp, up to twice a day when flared, 30 day supply fluticasone (Flonase) 50 MCG/ACT nasal spray 1 spray in each nostril Nasally Once a day. PRN for 30 days gabapentin (Neurontin) 100 MG capsule 1 capsule hydrOXYzine HCl (ATARAX) 50 mg ibuprofen 600 mg, Oral, Every 8 hours PRN levothyroxine (SYNTHROID) 50 mcg, Oral, Daily before breakfast metFORMIN (Glucophage) 500 MG tablet TAKE 1 TABLET BY MOUTH THREE TIMES DAILY (MORNING, EVENING AND BEFORE BEDTIME) Ozempic (2 MG/DOSE) 2 mg, Subcutaneous, Weekly sodium flouride (Prevident, Cavarest) 1.1 % dental gel BRUSH ON TEETH FOR 3 TO 5 MINUTES ONCE DAILY venlafaxine XR (Effexor XR) 150 MG 24 hr capsule 1 capsule venlafaxine XR (Effexor XR) 75 MG 24 hr capsule 1 capsule with food Orally Once a day. Take with 150mg Vraylar 3 MG capsule 1 capsule, Daily Allergies Allergen Reactions Aripiprazole Other Reaction(s): adverse reaction Paroxetine Other Reaction(s): suicidal thoughts PAST MEDICAL HISTORY: SOCIAL HISTORY SURGICAL HISTORY: Past Medical History: Diagnosis Date Anxiety and depression (CMS/HCC) Anxiety and depression (CMS/HCC) Anxiety in acute stress reaction (CMS/HCC) Asthma (CMS/HCC) control counseling BMI 40.0-44.9, adult (CMS/HCC) Depression (CMS/HCC) Encounter for well woman exam Heart murmur Metabolic syndrome Migraine (CMS/HCC) PCOS (polycystic ovarian syndrome) Polycystic ovarian syndrome Positive depression screening Sleeplessness Social History Tobacco Use Smoking status: Never Smokeless tobacco: Never Vaping Use Vaping status: Never Used Substance Use Topics Alcohol use: Yes Alcohol/week: 3.0 - 4.0 standard drinks of alcohol Types: 3 - 4 Standard drinks or equivalent per week Comment: caffeine intake : 1-2 cups per day coffee/soda Drug use: Never Past Surgical History: Procedure Laterality Date CYSTOSCOPY 01/2022 Dr. Olson OTHER SURGICAL HISTORY 1992 bilateral tubes in ears TONSILLECTOMY 1995 REVIEW OF SYMPTOMS: Review of Systems All other systems reviewed and are negative. OBJECTIVE: Vitals: 10/02/24 1431 BP: 116/76 Pulse: 88 SpO2: 97% Physical Exam Vitals and nursing note reviewed. Constitutional: Appearance: Normal appearance. HENT: Head: Normocephalic and atraumatic. Right Ear: Tympanic membrane normal. Left Ear: Tympanic membrane normal. Nose: Nose normal. Eyes: Extraocular Movements: Extraocular movements intact. Conjunctiva/sclera: Conjunctivae normal. Pupils: Pupils are equal, round, and reactive to light. Cardiovascular: Rate and Rhythm: Normal rate and regular rhythm. Heart sounds: Normal heart sounds. Pulmonary: Effort: Pulmonary effort is normal. Breath sounds: Normal breath sounds. Musculoskeletal: Cervical back: Normal range of motion and neck supple. Skin: General: Skin is warm and dry. Capillary Refill: Capillary refill takes less than 2 seconds. Neurological: Mental Status: She is alert. ASSESSMENT AND PLAN: Assessment/Plan Diagnoses and all orders for this visit: Encounter for immunization - Flu vaccine greater than or equal to 3 years old, PF IM (IMM19) Mixed hyperlipidemia (CMS/HCC) - Lipid panel; Future - AST; Future - ALT; Future Recheck liver enzymes and lipids today. Body mass index (BMI) 40.0-44.9, adult (CMS/HCC) Check labs to r/o underlying cause. Reviewed BMI with patient today. Encouraged weight reduction. Discussed healthy eating habits. Limit caloric intake <1500kcal/day. Reviewed different diet options with patient including low calorie, reduced carbohydrate. Advised to investigate Weight Watchers as a possible diet plan. Recommended journaling food intake and exercise performance either using a simple paper/calendar system or downloading the [employer] application to track calorie consumption, food intake, exercise performance. Recommended starting with at least 150 minutes of exercise weekly and increase to a goal of 60 minutes per day. Discussed barriers to following treatment plan. Will consider medication options if lifestyle modifications fail. Acquired hypothyroidism (CMS/HCC) - TSH W/REFLEX TO FT4; Future Metabolic syndrome Prediabetes - Hemoglobin A1c; Future No follow-ups on file. documented in this encounter [facility] 09-13-2024 History of Present illness Narrative Prescription sent documented in this encounter [facility] 09-07-2024 History of Present illness Narrative Images from the original note were not included. \Casi Brambila is a 34 y.o. female presents with chief complaint of URI HPI: Patient is here for sx of stuffy and runny nose, headache, fatiugue, post nasasl drainage, and ear popping in both that started Tuesday. She has been taking otc zyrtec and sinus pain and congestion medication. SUBJECTIVE: MEDICATIONS: ALLERGIES Current Outpatient Medications Medication Instructions benztropine (COGENTIN) 1 mg, Daily cholecalciferol (Vitamin D-3) 50 MCG (1999 UT) capsule Take by mouth fluocinonide (Lidex) 0.05 % external solution Apply to affected areas on the scalp, up to twice a day when flared, 30 day supply fluticasone (Flonase) 50 MCG/ACT nasal spray 1 spray in each nostril Nasally Once a day. PRN for 30 days gabapentin (Neurontin) 100 MG capsule 1 capsule hydrOXYzine HCl (ATARAX) 50 mg ibuprofen 600 mg, Oral, Every 8 hours PRN levothyroxine (SYNTHROID) 50 mcg, Oral, Daily before breakfast metFORMIN (Glucophage) 500 MG tablet TAKE 1 TABLET BY MOUTH THREE TIMES DAILY (MORNING, EVENING AND BEFORE BEDTIME) Ozempic (2 MG/DOSE) 2 mg, Subcutaneous, Weekly sodium flouride (Prevident, Cavarest) 1.1 % dental gel BRUSH ON TEETH FOR 3 TO 5 MINUTES ONCE DAILY venlafaxine XR (Effexor XR) 150 MG 24 hr capsule 1 capsule venlafaxine XR (Effexor XR) 75 MG 24 hr capsule 1 capsule with food Orally Once a day. Take with 150mg Vraylar 3 MG capsule 1 capsule, Daily Allergies Allergen Reactions Aripiprazole Other Reaction(s): adverse reaction Paroxetine Other Reaction(s): suicidal thoughts PAST MEDICAL HISTORY: SOCIAL HISTORY SURGICAL HISTORY: Past Medical History: Diagnosis Date Anxiety and depression (CMS/HCC) Anxiety and depression (CMS/HCC) Anxiety in acute stress reaction (CMS/HCC) Asthma (CMS/HCC) control counseling BMI 40.0-44.9, adult (CMS/HCC) Depression (CMS/HCC) Encounter for well woman exam Heart murmur Metabolic syndrome Migraine (CMS/HCC) PCOS (polycystic ovarian syndrome) Polycystic ovarian syndrome Positive depression screening Sleeplessness Social History Tobacco Use Smoking status: Never Smokeless tobacco: Never Vaping Use Vaping status: Never Used Substance Use Topics Alcohol use: Yes Alcohol/week: 4.0 - 5.0 standard drinks of alcohol Types: 1 Glasses of wine, 1 Shots of liquor, 2 - 3 Standard drinks or equivalent per week Comment: caffeine intake : 1-2 cups per day coffee/soda Drug use: Never Past Surgical History: Procedure Laterality Date CYSTOSCOPY 01/2022 Dr. Olson OTHER SURGICAL HISTORY 1992 bilateral tubes in ears TONSILLECTOMY 1995 REVIEW OF SYMPTOMS: Review of Systems Constitutional: Positive for fatigue. HENT: Positive for congestion, postnasal drip, rhinorrhea, sinus pressure, sinus pain and sore throat. Respiratory: Positive for cough. Negative for shortness of breath and wheezing. Cardiovascular: Negative for chest pain and palpitations. Gastrointestinal: Negative. Musculoskeletal: Negative. Skin: Negative. Neurological: Negative. All other systems reviewed and are negative. OBJECTIVE: Vitals: 09/07/24 1048 BP: 126/84 Pulse: 100 Temp: 96.9 F SpO2: 99% Physical Exam Vitals and nursing note reviewed. Constitutional: Appearance: She is well-developed. HENT: Head: Normocephalic. Right Ear: Hearing normal. Left Ear: Hearing normal. Nose: Congestion and rhinorrhea present. Right Sinus: Maxillary sinus tenderness and frontal sinus tenderness present. Left Sinus: Maxillary sinus tenderness and frontal sinus tenderness present. Mouth/Throat: Mouth: Mucous membranes are moist. Pharynx: Posterior oropharyngeal erythema present. No oropharyngeal exudate. Tonsils: No tonsillar exudate. Cardiovascular: Rate and Rhythm: Normal rate and regular rhythm. Heart sounds: Normal heart sounds. Pulmonary: Effort: Pulmonary effort is normal. Breath sounds: Normal breath sounds. Abdominal: General: Abdomen is flat. There is no distension. Tenderness: There is no abdominal tenderness. Musculoskeletal: Cervical back: Neck supple. Lymphadenopathy: Cervical: Right cervical: No superficial cervical adenopathy. Left cervical: No superficial cervical adenopathy. Skin: General: Skin is warm. Capillary Refill: Capillary refill takes less than 2 seconds. Neurological: General: No focal deficit present. Mental Status: She is alert and oriented to person, place, and time. ASSESSMENT AND PLAN: Assessment/Plan Diagnoses and all orders for this visit: Acute non-recurrent pansinusitis - amoxicillin-clavulanate (Augmentin) 875-125 MG tablet; Take 1 tablet (875 mg) by mouth in the morning and 1 tablet (875 mg) before bedtime. Do all this for 7 days. Increase clear liquids. Over the counter flonase. Cool mist vaporizer No follow-ups on file. documented in this encounter [facility] 07-26-2024 Telephone encounter Note Patient called lvm @ 12:47 pm saying she had labs done on Tuesday saw results in her my chart she was wanting to know if Dr Ruggiero wanted to add any meds. Pt would like a call back please. Thank you [facility] 07-26-2024 Miscellaneous Notes Patient called lvm @ 12:47 pm saying she had labs done on Tuesday saw results in her my chart she was wanting to know if Dr Ruggiero wanted to add any meds. Pt would like a call back please. Thank you documented in this encounter [facility] 07-24-2024 History of Present illness Narrative Images from the original note were not included. Casi Brambila is a 34 y.o. female presents with chief complaint of No chief complaint on file. HPI: Thyroid and cholesterol checked. Also needs refills of synthroid, atorvastatin and tricor SUBJECTIVE: MEDICATIONS: Current Outpatient Medications Medication Instructions atorvastatin (LIPITOR) 10 mg, Oral, Daily benztropine (COGENTIN) 1 mg, Oral, Daily cholecalciferol (Vitamin D-3) 50 MCG (1999) capsule Oral fenofibrate (TRICOR) 48 mg, Oral, Daily fluocinonide (Lidex) 0.05 % external solution Apply to affected areas on the scalp, up to twice a day when flared, 30 day supply fluticasone (Flonase) 50 MCG/ACT nasal spray 1 spray in each nostril Nasally Once a day. PRN for 30 days gabapentin (Neurontin) 100 MG capsule 1 capsule, Two capsules in the morning and 1 in the PM hydrOXYzine HCl (ATARAX) 50 mg ibuprofen 600 mg, Oral, Every 8 hours PRN levothyroxine (SYNTHROID) 25 mcg, Oral, Daily before breakfast metFORMIN (Glucophage) 500 MG tablet TAKE 1 TABLET BY MOUTH THREE TIMES DAILY (IN THE MORNING, EVENING, AND BEFORE BEDTIME) Ozempic (2 MG/DOSE) 2 mg, Subcutaneous, Weekly sodium flouride (Prevident, Cavarest) 1.1 % dental gel BRUSH ON TEETH FOR 3 TO 5 MINUTES ONCE DAILY venlafaxine XR (Effexor XR) 150 MG 24 hr capsule 1 capsule venlafaxine XR (Effexor XR) 75 MG 24 hr capsule 1 capsule with food Orally Once a day. Take with 150mg Vraylar 3 MG capsule 1 capsule, Oral, Daily I have reviewed and reconciled the history and medication list with the patient today. REVIEW OF SYMPTOMS: Review of Systems All other systems reviewed and are negative. OBJECTIVE: Visit Vitals BP 126/78 Pulse 105 Ht 5' 2 Wt 208 lb 12.8 oz SpO2 96% BMI 38.19 kg/m OB Status Having periods Smoking Status Never BSA 2.04 m Physical Exam ASSESSMENT AND PLAN: Assessment/Plan Images from the original note were not included. Casi Brambila is a 34 y.o. female presents with chief complaint of No chief complaint on file. HPI: Thyroid and cholesterol checked. Also needs refills of synthroid, atorvastatin and tricor History of Present Illness The patient presents for evaluation of multiple medical concerns. She reports overall well-being with her current medication regimen. However, she expresses a desire to have her thyroid function evaluated due to perceived hair thinning. She has been on fenofibrate and atorvastatin since the previous weekend. Her last cholesterol check was in 10/2023. She is also taking metformin and semaglutide, the latter of which she uses as needed when available. This insurance is not covering it like her prior one did. She has never been diagnosed with diabetes and her A1c levels have consistently been within the normal range. She is making efforts to maintain her weight. She did not receive an influenza vaccine in 2022. FAMILY HISTORY She has a family history of diabetes. The patient presents for evaluation of multiple medical concerns. She reports overall well-being with her current medication regimen. However, she expresses a desire to have her thyroid function evaluated due to perceived hair thinning. She has been on fenofibrate and atorvastatin since the previous weekend. Her last cholesterol check was in 10/2023. She is also taking metformin and semaglutide, the latter of which she uses as needed when available. She has never been diagnosed with diabetes and her A1c levels have consistently been within the normal range. She is making efforts to maintain her weight. She did not receive an influenza vaccine in 2022. FAMILY HISTORY She has a family history of diabetes. SUBJECTIVE: MEDICATIONS: Current Outpatient Medications Medication Instructions atorvastatin (LIPITOR) 10 mg, Oral, Daily benztropine (COGENTIN) 1 mg, Oral, Daily cholecalciferol (Vitamin D-3) 50 MCG (1999) capsule Oral fenofibrate (TRICOR) 48 mg, Oral, Daily fluocinonide (Lidex) 0.05 % external solution Apply to affected areas on the scalp, up to twice a day when flared, 30 day supply fluticasone (Flonase) 50 MCG/ACT nasal spray 1 spray in each nostril Nasally Once a day. PRN for 30 days gabapentin (Neurontin) 100 MG capsule 1 capsule, Two capsules in the morning and 1 in the PM hydrOXYzine HCl (ATARAX) 50 mg ibuprofen 600 mg, Oral, Every 8 hours PRN levothyroxine (SYNTHROID) 25 mcg, Oral, Daily before breakfast metFORMIN (Glucophage) 500 MG tablet TAKE 1 TABLET BY MOUTH THREE TIMES DAILY (IN THE MORNING, EVENING, AND BEFORE BEDTIME) Ozempic (2 MG/DOSE) 2 mg, Subcutaneous, Weekly sodium flouride (Prevident, Cavarest) 1.1 % dental gel BRUSH ON TEETH FOR 3 TO 5 MINUTES ONCE DAILY venlafaxine XR (Effexor XR) 150 MG 24 hr capsule 1 capsule venlafaxine XR (Effexor XR) 75 MG 24 hr capsule 1 capsule with food Orally Once a day. Take with 150mg Vraylar 3 MG capsule 1 capsule, Oral, Daily I have reviewed and reconciled the history and medication list with the patient today. REVIEW OF SYMPTOMS: Review of Systems All other systems reviewed and are negative. OBJECTIVE: Visit Vitals BP 126/78 Pulse 105 Ht 5' 2 Wt 208 lb 12.8 oz SpO2 96% BMI 38.19 kg/m OB Status Having periods Smoking Status Never BSA 2.04 m Physical Exam Vitals and nursing note reviewed. Constitutional: Appearance: Normal appearance. Cardiovascular: Rate and Rhythm: Normal rate and regular rhythm. Pulses: Normal pulses. Heart sounds: Normal heart sounds. Pulmonary: Effort: Pulmonary effort is normal. Breath sounds: Normal breath sounds. Musculoskeletal: Cervical back: Normal range of motion and neck supple. Skin: General: Skin is warm and dry. Neurological: General: No focal deficit present. Mental Status: She is alert. Psychiatric: Mood and Affect: Mood normal. ASSESSMENT AND PLAN: Assessment & Plan 1. Hypothyroidism. She reports concerns about hair thinning, suggesting a need to evaluate her thyroid function. Thyroid function tests, including TSH and free T4, will be ordered to assess her current thyroid status. Her medications will be refilled based on the results. 2. Hyperlipidemia. Her lipid profile will be evaluated to manage her hyperlipidemia effectively. Lipid panel tests will be ordered to monitor her cholesterol levels. Liver function tests, including AST and ALT, will also be ordered to monitor her liver health. 3. Medication Management. She is currently taking Metformin and semaglutide (Ozempic) for insulin resistance, despite not having a diagnosis of diabetes. She reports that her A1c has been stable at 5.1. She will continue her current medication regimen, and no A1c test will be ordered at this time. Her medications will be refilled at [facility] in [place] based on the lab results. Assessment/Plan Problem List Items Addressed This Visit Mixed hyperlipidemia (CMS/HCC) Relevant Orders Lipid panel AST ALT PCOS (polycystic ovarian syndrome) - Primary Other Visit Diagnoses Acquired hypothyroidism (CMS/HCC) Relevant Orders TSH T4, free Medications to be refilled after the labs are reviewed. Will adjust as necessary and then send in. documented in this encounter [facility] 03-13-2024 Note PROCEDURE: Without intravenous or oral contrast administration, axial helical images through the abdomen and pelvis were performed, 5 mm. slice thickness. Correlation made with prior days lumbar spine examination, March 12, 2024. FINDINGS: Both kidneys and collecting system: Normal No bladder stone, air collection focal wall thickening. Punctate right hemipelvic phlebolith. Normal gallbladder and biliary tree, no inflammation or stone formation or biliary ductal dilatation. No calcification is seen within the paravertebral region L1-2 suggesting prior days findings reflecting ingested material. Normal abdominal wall. Moderate colon stool, no inflammation or obstruction. Limited distention near the hepatic flexure may represent independent peristalsis. No surrounding inflammation. Unremarkable lung bases, liver (diffusely fatty replaced), spleen (calcified granulomas), pancreas and adrenal glands. IMPRESSION: 1. No urinary tract stones, prior days findings likely reflect ingested material. 2. No evidence of cholelithiasis. TRANSCRIBED BY: ELECTRONICALLY SIGNED BY: Abraham Pena MD Not Available 03-16-2023 Hospital Discharge instructions Patient Education 03/16/2023 13:54:43 Kidney Stones, Elqq-ez-[id number] Kidney Stones Kidney stones are rock-like masses [...] Follow these instructions at home: Medicines Take zciz-xkx-zugqkst and prescription medicines only as told by [...] provider. Document Revised: 07/12/2022 Document Reviewed: 07/12/2022 [employer] Patient Education 2022 [employer]. Follow Up Care 02/11/2023 10:29:06 With:JOHN GU, CASI Amin, URL Address: [facility] [place] [address] [phone] When:03/16/2024 Comments:KUB [facility] 06-07-2022 Evaluation note Encounter Date Diagnosis Assessment Notes May, Bipolar 2 disorder, major depressive episode (ICD-10 - F31.81) [employer] Other 06-22-2022 Hospital Discharge instructions Patient Education 05/12/2022 16:11:40 [...] fried and sweet foods. General instructions Take qxgv-hqr-dyhvlkn and prescription medicines only as told by [...] 09/03/2010 Document Revised: 02/28/2020 Document Reviewed: 11/23/2018 [employer] Patient Education 2020 [employer]. 05/12/2022 16:11:35 Calorie Counting for Weight Loss [...] 11/07/2006 Document Revised: 07/27/2019 Document Reviewed: 10/07/2017 [employer] Patient Education 2020 [employer]. Follow Up Care 02/15/2022 09:22:15 With:UNRULY CANTU, Agus Mcallister, URL Address: [address] [place], [place] [id number] Business (1) When: Unknown [facility] 06-13-2022 Evaluation note* Encounter Date Diagnosis Assessment Notes Treatment Notes Treatment Clinical Notes Apr, Bipolar 2 disorder, major depressive episode (ICD-10 - F31.81) [employer] Other 05-19-2022 Evaluation note* Encounter Date Diagnosis Assessment Notes Treatment Notes Treatment Clinical Notes March, Bipolar 2 disorder, major depressive episode (ICD-10 - F31.81) [employer] Other 05-09-2022 Evaluation note* Encounter Date Diagnosis Assessment Notes Treatment Notes Treatment Clinical Notes March, Bipolar 2 disorder, major depressive episode (ICD-10 - F31.81) [employer] Other 05-06-2022 Evaluation note* Encounter Date Diagnosis Assessment Notes Treatment Notes Treatment Clinical Notes March, Bipolar 2 disorder, major depressive episode (ICD-10 - F31.81) [employer] Other 04-06-2022 Evaluation note* Encounter Date Diagnosis Assessment Notes Treatment Notes Treatment Clinical Notes Feb, Bipolar 2 disorder, major depressive episode (ICD-10 - F31.81) [employer] Other 04-06-2022 Evaluation note* Encounter Date Diagnosis [...] - E88.81) Feb, Palpitations (ICD-10 - R00.2) [employer] Other 01-17-2022 Evaluation note* Encounter Date Diagnosis Assessment Notes Treatment Notes Treatment Clinical Notes Nov, Major depressive disorder, recurrent severe without psychotic features (ICD-10 - F33.2) [employer] Other 01-03-2022 Evaluation note* Encounter Date Diagnosis Assessment Notes Treatment Notes Treatment Clinical Notes Nov, Bipolar 2 disorder, major depressive episode (ICD-10 - F31.81) [employer] Other 12-08-2021 NoteHISTORY: Left lower quadrant pain, constipation, abnormal CXR PROCEDURE: AskerpeMiew VCT 64. Without intravenous or oral contrast [...] and signed by Abraham Pena on 10/28/2021 [id number] [id number] Evaluation note* Encounter Date Diagnosis Assessment Notes Treatment Notes Treatment Clinical Notes Sep, Bipolar 2 disorder, major depressive episode (ICD-10 - F31.81) [employer] Other Evaluation + Plan note Future Appointments Appointment Date:01/12/2023 01:45:00 PM Scheduled Provider:Agus OLSON MD Location:[facility] Appointment Type:URO Office Visit [facility] Evaluation + Plan note Future Appointments Appointment Date:03/21/2024 01:00:00 PM Scheduled Provider:CASI LOPEZ PA-C Location:[facility] Appointment Type:URO Office Visit [facility] evaluation [employer] Other evaluation noteNo InformationN[employer] Other evaluation noteNo assessment information available [facility] Work Phone: evaludcdeo note* Diagnosis Migraine without aura and without status migrainosus, not intractable (CMS/HCC) [facility] Diagnosis Acute non-recurrent pansinusitis- Primary [facility]* Diagnosis Vaginal yeast infection- Primary Candidiasis of vulva and vagina [facility]* Diagnosis Encounter for immunization- Primary Mixed hyperlipidemia (CMS/HCC) Mixed hyperlipidemia Body mass index (BMI) 40.0-44.9, adult (CMS/HCC) Acquired hypothyroidism (CMS/HCC) Unspecified hypothyroidism Metabolic syndrome Dysmetabolic Syndrome X Prediabetes Other abnormal glucose [facility] Diagnosis Elevated liver enzymes- Primary Other nonspecific abnormal serum enzyme levels Polyneuropathy Unspecified hereditary and idiopathic peripheral neuropathy Elevated liver enzymes Other nonspecific abnormal serum enzyme levels [facility] Diagnosis Elevated liver enzymes- Primary Other nonspecific abnormal serum enzyme levels Fatty liver Other chronic nonalcoholic liver disease [facility]* Diagnosis Epigastric pain- Primary Abdominal pain, epigastric Morbid (severe) obesity due to excess calories (CMS/HCC) Metabolic syndrome Dysmetabolic Syndrome X [facility]* Diagnosis PCOS (polycystic ovarian syndrome)- Primary Polycystic ovaries Mixed hyperlipidemia (CMS/HCC) Mixed hyperlipidemia Acquired hypothyroidism (CMS/HCC) Unspecified hypothyroidism [facility]* Diagnosis Acquired hypothyroidism (CMS/HCC)- Primary Unspecified hypothyroidism Elevated liver enzymes Other nonspecific abnormal serum enzyme levels [facility]* Diagnosis Acute right otitis media- Primary [facility]* Diagnosis Spasm of cervical paraspinous muscle- Primary Spasm of muscle [facility]* Diagnosis Mixed hyperlipidemia (CMS/HCC)- Primary Mixed hyperlipidemia Nonintractable headache, unspecified chronicity pattern, unspecified headache type Tachycardia Unspecified tachycardia [facility] Diagnosis Spasm of cervical paraspinous muscle- Primary Spasm of muscle Acute intractable headache, unspecified headache type Poor posture Abnormal posture Morbid (severe) obesity due to excess calories (CMS/HCC) Mixed hyperlipidemia (CMS/HCC) Mixed hyperlipidemia Body mass index (BMI) 39.0-39.9, adult Bipolar II disorder ([facility]/HCC) Other bipolar disorders [facility]* Diagnosis Fever, unspecified fever cause- Primary COVID-19 [facility]* Diagnosis Prediabetes- Primary Other abnormal glucose PCOS (polycystic ovarian syndrome) Polycystic ovaries [facility]* Diagnosis Type 2 diabetes mellitus without complication, without long-term current use of insulin ([facility])- Primary Mixed hyperlipidemia (CMS/HCC) Mixed hyperlipidemia Acquired hypothyroidism (CMS/HCC) Unspecified hypothyroidism documented in this encounter [facility]* Diagnosis Type 2 diabetes mellitus without complication, without long-term current use of insulin (CMS/HCC) documented in this encounter [facility]* Diagnosis Sacroiliac joint dysfunction- Primary Nonallopathic lesion of sacral region, not elsewhere classified Type 2 diabetes mellitus without complication, without long-term current use of insulin (CMS/HCC) documented in this encounter [facility]* Diagnosis Acquired hypothyroidism (CMS/HCC) Unspecified hypothyroidism documented in this encounter [facility]* Diagnosis Type 2 diabetes mellitus without complication, without long-term current use of insulin- Primary Snoring Other dyspnea and respiratory abnormality documented in this encounter [facility]* Diagnosis Well woman exam with routine gynecological exam Routine gynecological examination [facility] N[facility] - ReportedNoBuddyTV Other History general Narrative - Reported* Type Description Date Medical History chronic depression Medical History polycystic ovaries Surgical History tonsillectomy and adenoidectomy Surgical History tubes in ears 1991 Hospitalization History pneumonia as a [facility] Other History general Narrative - ReportedNoBuddyTV Other History general Narrative - ReportedBuddyTV Other History general Narrative - Reported* Type [...] History cystoscopy Hospitalization History pneumonia as a [facility] Other Hospital course Narrative No data available for this section [facility] Discharge instructions No data available for this section [facility] [employer] progress note No data available for this section [facility] Summary Purpose Family History No Family History Records FoundNo Family History Records Found No data available for this section No data available for this section No Family History Records FoundNo Family History Records FoundNo Family History Records Found Advance Directives No Advanced Directives Records FoundNo Advanced Directives Records FoundNo Advanced Directives Records FoundNo Advanced Directives Records FoundNo Advanced Directives Records Found Additional Source Comments INFORMATION SOURCE (unrecogn ized section and content) DATE CREATED AUTHOR 04/10/2022 [facility] d[facility] Specialist DATE CREATED AUTHOR AUTHOR'S ORGANIZ ATION 11/17/2022 [facility] DATE CREATED AUTHOR AUTHOR'S ORGANIZ ATION 12/02/2024 [facility] DATE CREATED AUTHOR AUTHOR'S ORGANIZ ATION 01/10/2025 [facility] DATE CREATED AUTHOR AUTHOR'S ORGANIZ ATION 02/07/2025 [facility] dical Specialists EPIC Care Team (unrecognized sect ion and content) Nipple Maker Relationship Specialty Start Date End Date Casi Ruggiero MD [address] [facility] [place] [address] PCP - General Family Medicine 04/07/23 Nipple Maker Relationship Specialty Start Date End Date Casi Ruggiero MD [address] [facility] [place] [address] PCP - General Family Medicine 04/07/23 Nipple Maker Relationship Specialty Start Date End Date Casi Ruggiero MD [address] [facility] [place] [address] PCP - General Family Medicine 04/07/23 Nipple Maker Relationship Specialty Start Date End Date Casi Ruggiero MD [address] [facility] [place] [address] PCP - General Family Medicine 04/07/23 Nipple Maker Relationship Specialty Start Date End Date Casi Ruggiero MD [address] [place] [address] PCP - General Family Medicine 04/07/23 Nipple Maker Relationship Specialty Start Date End Date Casi Ruggiero MD [address] [place] [address] PCP - General Family Medicine 04/07/23 Nipple Maker Relationship Specialty Start Date End Date Casi Ruggiero MD [address] [place] [address] PCP - General Family Medicine 04/07/23 Nipple Maker Relationship Specialty Start Date End Date Casi Ruggiero MD [address] [place] [address] PCP - General Family Medicine 04/07/23 Nipple Maker Relationship Specialty Start Date End Date Casi Ruggiero MD [address] [place] [address] PCP - General Family Medicine 04/07/23 Nipple Maker Relationship Specialty Start Date End Date Casi Ruggiero MD [address] [place] [address] PCP - General Family Medicine 04/07/23 Nipple Maker Relationship Specialty Start Date End Date Casi Ruggiero MD [address] [place] [address] PCP - General Family Medicine 04/07/23 Nipple Maker Relationship Specialty Start Date End Date Casi Ruggiero MD [address] [place] [address] PCP - General Family Medicine 04/07/23 Nipple Maker Relationship Specialty Start Date End Date Casi Ruggiero MD [address] [place] [address] PCP - General Family Medicine 04/07/23 Nipple Maker Relationship Specialty Start Date End Date Casi Ruggiero MD [address] [place] [address] PCP - General Family Medicine 04/07/23 Nipple Maker Relationship Specialty Start Date End Date Casi Ruggiero MD [address] [place] [address] PCP - General Family Medicine 04/07/23 Nipple Maker Relationship Specialty Start Date End Date Casi Ruggiero MD [address] [place] [address] PCP - General Family Medicine 04/07/23 Nipple Maker Relationship Specialty Start Date End Date Casi Ruggiero MD [address] [place] [address] PCP - General Family Medicine 04/07/23 Nipple Maker Relationship Specialty Start Date End Date Casi Ruggiero MD [address] [place] [address] PCP - General Family Medicine 04/07/23 Nipple Maker Relationship Specialty Start Date End Date Casi Ruggiero MD [address] [place] [address] PCP - General Family Medicine 04/07/23 Nipple Maker Relationship Specialty Start Date End Date Casi Ruggiero MD [address] [place] [address] PCP - General Family Medicine 04/07/23 Nipple Maker Relationship Specialty Start Date End Date Casi Ruggiero MD [address] [place] [address] PCP - General Family Medicine 04/07/23 Nipple Maker Relationship Specialty Start Date End Date Casi Ruggiero MD [address] [place] [address] PCP - General Family Medicine 04/07/23 Nipple Maker Relationship Specialty Start Date End Date Casi Ruggiero MD [address] [place] [address] PCP - General Family Medicine 04/07/23 Nipple Maker Relationship Specialty Start Date End Date Casi Ruggiero MD [address] [place] [address] PCP - General Family Medicine 04/07/23 REASON FOR VISIT (unrecogniz ed section and content) Reason Comments URI Reason Comments Weight Check Reason Comments Abdominal Pain Reason Comments Headache Migraine on the righ t side of head, neck and face the past week. Tylenol, motrin, Imitrex and ubrevly haven't helped. Tried a propranlol 120mg last night to see if that would help but didn't. Post nasal drip started this morning and chest pressure started 30 minutes ago and is still currently feeling in office. Reason Comments Med Refill Patient currently shen ppy with medications but would like to discuss restarting a statin. Had elevated liver enzymes in the past so stopped. Also BS today around 3pm was 147. Pt has felt dizzy, tachycardic and has had a headache. Reason Comments Headache Reason Onset Date Comments Med Refill 02/25/2025 Reason Comments [facility] Visit Goals (unrecognized section and content) Goals may [...] BE BASED ON THE PRIMARY CLINICAL RECORDS. [facility], [facility]. provides no warranty or guarantee of the accuracy or completeness of information in this document.
[2025-03-11 12:08] LABS: Age Gdln ACOG Testing Note (.); HPV Aptima Negative (Negative); IGP, Aptima HPV, rfx 16/18,45 Note (.)
== END 2025-03-06 20:31 | disposition home or self-care (01) ==
LOC: LAB 20:30
PROVIDERS: PCP Family Medicine; Visit Provider Obstetrics & Gynecology
DX: Z01.419 Encounter for gynecological examination (general) (routine) without abnormal findings (principal)
CPT/HCPCS: 87624; 88175